=== PATIENT | male | born 1980 | race African-American/Black ===

== ENCOUNTER 2017-04-11 11:26 | Inpatient (IN) | payer OTHER ==
[2017-04-11 11:38] VITALS: BMI 39.9
--- NOTE | 2017-04-11 12:16 | PDOC ---
History of Present Illness - General Chief Complaint: Edema Stated Complaint: SWOLLEN ANKLES Time Seen by Provider: 04/11/17 11:57 History Source: Patient Exam Limitations: No Limitations - History of Present Illness Initial Comments: CHIEF COMPLAINT: 36 y/o afebrile male with no significant PMH c/o dizziness, SOB and swollen legs. HISTORY OF PRESENT ILLNESS: The patient states he has had swollen legs for the past 3 days with dizziness and SOB on exertion at work today. 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 He does admit he doesn't drink water. When asked about his blood pressure the patient states he was at [facility] ER last year and they told him it was high then too but he doesn't have insurance and doesn't have a doctor to follow up with. He denies f/c, neck pain, CLIFFORD, changes in vision/ hearing, n/v/d, CP, abd pain, back pain, hematuria, dysuria. The patient admits his dizziness has resolved. Vital signs on arrival are notable for pulse of 101 with BP of 203/119. REVIEW OF SYSTEMS: GENERAL/CONSTITUTIONAL: No fever/chills. No weakness. No weight change. HEAD, EYES, EARS, NOSE AND THROAT: No change in vision. No ear pain or discharge. No sore throat. CARDIOVASCULAR: +SOB on exertion. No chest pain. RESPIRATORY: No cough, wheezing, or hemoptysis. GASTROINTESTINAL: No abd pain, nausea, vomiting, diarrhea. GENITOURINARY: No dysuria, frequency, or change in urination. MUSCULOSKELETAL: +lower leg swelling. No neck or back pain. SKIN: No rash or easy bruising. NEUROLOGIC: +dizziness. No headache, loss of consciousness, or loss of sensation. PHYSICAL EXAM: GENERAL: The patient is awake, alert, and fully oriented, in no acute distress. He is a morbidly obese male, in NAD or obvious discomfort. HEAD: Normal with no signs of trauma. NECK: No midline cervical spine TTP or step offs. No meningismus. ENT: Pupils equal, round and reactive to light, extraocular movements intact, sclera anicteric, conjunctiva clear. Neck supple. LUNGS: Clear to auscultation bilaterally. Normal excursion. No respiratory distress or use of accessory muscles. CV: RRR, S1/S2, no MRG. Cap refill < 2 sec. ABDOMEN: Soft, obese, non-tender even to deep palpation, no hepatomegaly or splenomegaly, no masses. EXTREMITIES: 2+ pitting edema b/l LEs. Normal range of motion. NEUROLOGICAL: Normal speech, normal gait. CN II-XII grossly intact. PSYCH: Normal mood, normal affect. SKIN: Warm, dry, normal turgor, no rashes or lesions noted. Past History - Past Medical History Allergies/Adverse Reactions: Allergies Allergy/AdvReac Type Severity Reaction Status Date / Time No Known Allergies Allergy Verified 04/11/17 11:38 Home Medications: Ambulatory Orders NK [No Known Home Medication] 04/11/17 Other medical history: NONE - Psycho/Social/Smoking Cessation Hx Anxiety: No Suicidal Ideation: No Smoking History: Never smoked Hx Alcohol Use: Yes (SOCIAL) Drug/Substance Use Hx: No Substance Use Type: None *Physical Exam - Vital Signs Last Vital Signs Temp Pulse Resp BP Pulse Ox 98.1 F 101 H 20 203/119 98 04/11/17 11:32 04/11/17 11:32 04/11/17 11:32 04/11/17 11:32 04/11/17 11:51 Heart Score/ECG Review - ECG Intrepretation Comment:: Twelve-lead EKG was performed and reviewed by Dr. Alston. There is normal sinus rhythm with a normal rate. Biatrial enlargement. Pulmonary disease pattern. Incomplete right bundle branch block. Left anterior fascicular block. Nonspecific T wave abnormality. Prolonged QT. Impression: Abnormal twelve-lead EKG ED Treatment Course - LABORATORY CBC & Chemistry Diagram: 04/11/17 12:34 04/11/17 12:33 Medical Decision Making - Medical Decision Making A/P: 36 y/o afebrile male with no PMH but with no prison medical care c/o dizziness, SOB on exertion and LE edema. Upon arrival the patient was HTN to 203/119 with HR of 101 and O2 sat of 96% on RA. The patient has no complaints of CLIFFORD, neck pain, changes in vision/hearing. Plan is to do a cardiac work up to r/o ACS and CHF. 1. EKG 2. CXR 3. Labs CXR IMPRESSION: No acute pathology. Prominent right hilum. Large heart. Troponin - 2.[address] elevation. Possible NSTEMI Pressures remain elevated, tachycardic and hypoxic. Will send for Chest CTA to r/o PE. Pt continues to deny pain. Chest CTA IMPRESSION: The thoracic and visualized portion of the upper abdominal aorta is normally enhanced without evidence of aneurysmal dilation or dissection. There is no evidence of a pulmonary embolus in the main pulmonary artery and its proximal branches, bilaterally. Minimal atelectatic changes in the dependent portion of the left lower lobe without evidence of focal infiltrates. Discussed all results with Dr. Alston. This is most likely an NSTEMI. Paged Cardio. Repeat EKG at 2:05pm remains unchanged from prior. Spoke with Dr. Naik. He agrees with Heparin and ASA protocol. Also suggested IV hydralazine. Pt given meds. His pressure is now down to 189/95. Spoke with Dr. See and he accepts admission on behalf of Dr. Bello. Pt and family are aware of the diagnosis and the plan. *DC/Admit/Observation/Transfer Diagnosis at time of Disposition: Elevated troponin I level, NSTEMI (non-ST elevated myocardial infarction) Hypertension Qualifiers: Hypertension type: unspecified Qualified Code(s): I10 - Essential (primary) hypertension - Discharge Dispostion Admit: Yes
[2017-04-11 12:41] LABS: BASOPHIL 1.4 % (0-2.0); EOSINOPHIL 1.6 % (0-4.5); MCH 30.2 pg (25.7-33.7); MCHC 33.8 g/dl (32.0-35.9); MEAN CELL VOLUME 89.5 fl (80-96); MEAN PLT VOLUME 8.6 fl (7.5-11.1); NEUTROPHILS 61.5 % (42.8-82.8); PLATELET COUNT 237 K/MM3 (134-434); RDW 13.3 % (11.9-15.9); WHITE BLOOD COUNT 7.5 K/mm3 (4.0-10.0)
[2017-04-11 13:17] LABS: ALBUMIN 3.6 g/dl (3.4-5.0); ANION GAP 6 (8-16); BILIRUBIN,TOTAL 1.4 mg/dL (0.2-1.0); CALCIUM 8.5 mg/dL (8.5-10.1); CO2 32 mmol/L (21-32); CREATININE 0.9 mg/dL (0.7-1.3); GLUCOSE,RANDOM 72 mg/dL (74-106); SGPT/ALT 44 U/L (12-78); TOT PROT 6.7 g/dl (6.4-8.2)
[2017-04-11 13:25] LABS: ALK PHOS 69 U/L (45-117); SGOT/AST 49 U/L (15-37)
[2017-04-11] MEDS ORDERED: ASPIRIN 81 MG CHEWABLE TABLETS PO ONE (13:54)
[2017-04-11] MEDS ORDERED: HEPARIN NA (PORCINE) 5,000 UNITS/ML 1ML VIAL IVPUSH PRN (14:07)
[2017-04-11] MEDS ORDERED: ASPIRIN 325 MG TABLET ONE (14:20)
[2017-04-11] MEDS ORDERED: hydrALAZINE HCL 20 MG/ML VIAL IVPUSH ONE (14:37)
[2017-04-11] MEDS ORDERED: HEPARIN NA (PORCINE) 5,000 UNITS/ML 1ML VIAL ONE (14:40)
[2017-04-11] MEDS ORDERED: HEPARIN INFUSION - 500 ML IVPB ONE (14:40)
[2017-04-11] MEDS ORDERED: hydrALAZINE HCL 20 MG/ML VIAL ONE (14:41)
[2017-04-11] MEDS: HEPARIN INFUSION - 500 ML IVPB SCH (14:51)
--- NOTE | 2017-04-11 16:49 | HP ---
CHIEF COMPLAINT:Dizziness shortness of breath and leg swelling PCP:none HISTORY OF PRESENT ILLNESS: 36M denies PMH presents to the ED with a few hour history of dizziness and shortness of breath. 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 This prompted him to come to the ED. patient presents with his aunt and other family members. He also endorses a 3 day history of lower extremity swelling. He denies nausea vomiting fevers chills chest pain dysuria or hematuria. He denies drug use. He endorses decreased fluid intake. He denies any neurological symptoms. He denies recent illness or recent sick contacts. States he had some chest tightness a few months ago but was never worked up. In the ED he was noted to have hypertensive urgency with SBP around 200. Troponin also elevated to 2.[address] changes on EKG. Seen in [facility] last year for a head laceration and admitted for hypertension. He was told he had hypertension but did not follow up and was never treated due to insurance reasons. ER course was notable for: (1)Labs CT chest (2)Heparin gtt (3)Cardiology consult IV hydralazine Recent Travel:Denies PAST MEDICAL HISTORY:Denies PAST SURGICAL HISTORY:Denies Social History: Smoking:Denies Alcohol:Social Drugs: Denies Allergies No Known Allergies Allergy (Verified 04/11/17 11:38) HOME MEDICATIONS: Home Medications Medication Instructions Recorded NK [No Known Home Medication] 04/11/17 REVIEW OF SYSTEMS CONSTITUTIONAL: Absent: fever, chills, diaphoresis, generalized weakness, malaise, loss of appetite, weight change HEENT: Absent: rhinorrhea, nasal congestion, throat pain, throat swelling, difficulty swallowing, mouth swelling, ear pain, eye pain, visual changes CARDIOVASCULAR: Absent: chest pain, syncope, palpitations, irregular heart rate, lightheadedness Present: peripheral edema RESPIRATORY: Absent: cough, dyspnea with exertion, orthopnea, wheezing, stridor, hemoptysis Present: shortness of breath GASTROINTESTINAL: Absent: abdominal pain, abdominal distension, nausea, vomiting, diarrhea, constipation, melena, hematochezia GENITOURINARY: Absent: dysuria, frequency, urgency, hesitancy, hematuria, flank pain, genital pain MUSCULOSKELETAL: Absent: myalgia, arthralgia, joint swelling, back pain, neck pain SKIN: Absent: itching, pallor Present: Fungal rash around toes HEMATOLOGIC/IMMUNOLOGIC: Absent: easy bleeding, easy bruising, lymphadenopathy, frequent infections ENDOCRINE: Absent: unexplained weight gain, unexplained weight loss, heat intolerance, cold intolerance NEUROLOGIC: Absent: headache, focal weakness or paresthesias, unsteady gait, seizure, mental status changes, bladder or bowel incontinence Present: dizziness PSYCHIATRIC: Absent: anxiety, depression, suicidal or homicidal ideation, hallucinations. PHYSICAL EXAMINATION Vital Signs - 24 hr 04/11/17 04/11/17 04/11/17 11:32 11:51 12:09 Temperature 98.1 F Pulse Rate 101 H Pulse Rate [ 81 Apical] Respiratory 20 19 Rate Blood Pressure 203/119 Blood Pressure [Left Arm] Blood Pressure 204/135 [Right Arm] O2 Sat by Pulse 96 98 95 Oximetry (%) 04/11/17 04/11/17 04/11/17 12:36 14:09 14:17 Temperature 98.6 F Pulse Rate Pulse Rate [ 81 74 Apical] Respiratory 18 22 Rate Blood Pressure Blood Pressure 219/156 [Left Arm] Blood Pressure 180/134 201/116 [Right Arm] O2 Sat by Pulse 95 100 Oximetry (%) 04/11/17 15:41 Temperature Pulse Rate Pulse Rate [ 85 Apical] Respiratory 22 Rate Blood Pressure Blood Pressure 157/88 [Left Arm] Blood Pressure [Right Arm] O2 Sat by Pulse 100 Oximetry (%) GENERAL: Awake, alert, and fully oriented, in no acute distress. HEAD: Normal with no signs of trauma. EYES: Pupils equal, round and reactive to light, extraocular movements intact, sclera anicteric, conjunctiva clear. EARS, NOSE, THROAT: Dry mucous membranes. NECK: Normal range of motion, +JVD LUNGS: Breath sounds equal, clear to auscultation bilaterally. No wheezes, and no crackles. No accessory muscle use. HEART: Regular rate and rhythm, normal S1 and S2 without murmur, rub or gallop. ABDOMEN: Soft, nontender, not distended, normoactive bowel sounds, Obese, no guarding, no rebound MUSCULOSKELETAL: Normal range of motion at all joints. No bony deformities or tenderness. No CVA tenderness. UPPER EXTREMITIES: 2+ pulses, warm, well-perfused.. No peripheral edema. LOWER EXTREMITIES: 2+ DP pulses, warm, well-perfused. No calf tenderness. 3+ Pitting edema in BL LE up to knee. Dry scaly crusted skin over toes and evidence of fungal infection in webbed spaces. NEUROLOGICAL: Cranial nerves II-XII intact. Normal speech. PSYCHIATRIC: Cooperative. Good eye contact. Appropriate mood and affect. Laboratory Results - last 24 hr 04/11/17 04/11/17 04/11/17 12:33 12:33 12:34 WBC 7.5 RBC 5.25 Hgb 15.9 Hct 47.0 MCV 89.5 MCH 30.2 MCHC 33.8 RDW 13.3 Plt Count 237 MPV 8.6 Neutrophils % 61.5 Lymphocytes % 24.7 Monocytes % 10.8 H Eosinophils % 1.6 Basophils % 1.4 Sodium 141 Potassium 4.3 Chloride 103 Carbon Dioxide 32 Anion Gap 6 L BUN 15 Creatinine 0.9 Creat Clearance w eGFR > 60 Random Glucose 72 L Calcium 8.5 Total Bilirubin 1.4 H AST 49 H ALT 44 Alkaline Phosphatase 69 Creatine Kinase 646 H Creatine Kinase Index 0.7 CK-MB (CK-2) 4.258 H CK-MB (CK-2) Rel Index Cancelled Troponin I 2.80 H* B-Natriuretic Peptide 185.74 H Total Protein 6.7 Albumin 3.6 ASSESSMENT/PLAN: 36M with history og long standing uncontrolled hypertension and obesity who presents to the ED with dizziness shortness of breath and lower extremity edema found to have elevated troponins. Troponinemia: likely NSTEMI: Admit to telemetry Vital signs q2h for now Trend troponin Cardiology consult Load with plavix 300mg po one start aspire 81mg po daily already given aspirin 324 in ED Start heparin gtt Check HbA1c Lipid panel lipitor 40mg po now and HS Start JASMYN inhibitor-lisinopril 40mg po now and daily Echo Repeat EKG and troponin now uncontrolled hypertension/hypertensive urgency: Start jasmyn inhibitor 40mg po daily will add beta isacc as needed trend BP q2h for now until controlled telemetry for cardiac monitoring CHF: Clinically the patient has CHF with JVD and bilateral lower extremity pitting edema. Get Echo cardiology consult hold off on diuresis for now and evaluate if patient becomes tachypneic or has respiratory distress will give diuretics Tinea Pedis: Start clotrimazole cream Instruced on good hygiene techniques FEN: No IVF No electrolyte issues Cholesterol/Sodium controlled diet PPx: On Hep gtt/SCDs no GI PPx indicated no PT consult needed atthis time case discussed with attending Dr. Gordon Visit type - Emergency Visit Emergency Visit: Yes ED Registration Date: 04/11/17 Care time: The patient presented to the Emergency Department on the above date and was hospitalized for further evaluation of their emergent condition. - New Patient This patient is new to me today: Yes Date on this admission: 04/11/17 - Critical Care Critical Care patient: No
[2017-04-11] MEDS ORDERED: CLOPIDOGREL BISULFATE 300 MG TABLET PO ONE (17:02)
[2017-04-11] MEDS ORDERED: ATORVASTATIN CA 40 MG TABLET (FP) PO ONE (17:02)
--- NOTE | 2017-04-11 17:02 | PN ---
Teaching Attending Note Name of Resident: Jagjit See ATTENDING PHYSICIAN STATEMENT I saw and evaluated the patient. I reviewed the resident's note and discussed the case with the resident. I agree with the resident's findings and plan as documented. SUBJECTIVE: CC: light headedness. 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 he had no CLIFFORD , visual changes, weakness, numbness or tingling. he noted LE edema x 3 days . denies SOB . reported 2 episodes of CP 2 months ago after walking fro few min and resolved with resting after lasting few min . reports his father had a stroke and PR at age 85 . currently sx free. in ER was found to be hypertensive , with SBP > 200. treated with IV meds. given ASA and started on heparin gtt due to trop of 2.8 OBJECTIVE: BP 158/105, HR 80s , NAD CV: RRR, no MRG. has JVD. Lungs : L middle lung field fine crackles . Abd; obese , NT, NL BS Ext : 2+ pitting edema on LE from knees down . no erythema or tenderness,. fungal infection in toes webs . thick dry hyperpigmented , and scaly skin on toes. NEuro: EOMI, round equal pupils, reactive tolight , tongue and uvula at mid line , nl facial sensation , no facial droop. strength 5/5 in upper and lower ext proximally and distally. sensation to light touch nL. reflexes 2+ knee jerk b/l 1+ biceps b/l. Neg babibnski's b/l . 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 He was found to have hypertensive emergency 1- Hypertensive emergency: with elevated tropo causing NSTEMI. EKG with L axis deviation , no evidence of ST or TW changes . he gives h/o stable angina 2 months ago, so probably he has underlying CAD , especially withhis risk factors of untreated HTN, male gender , adn obesity. - started on heparin gtt in ER . COnt - given 325 of asa , will cont 81 mg daily - load with plavix 300 mg - check stat trop and EKG - give a dose of LIsinopril now and then daily - we can use BB if needed as well to decrease HR and BB . - give statin -echo - check LDL - check A1C 2- signs of heart failure : he has no resp compromise or distress. will hold off diuresis now , unless condition changes. 3- mild elevationin LFTS , probably due to liver congestion from R sided heart failure 4- tinea pedis : start antifungal topically 5-- DVT px : on heparin gtt HLOC
[2017-04-11] MEDS ORDERED: ATORVASTATIN CA 40 MG TABLET (FP) ONE (17:13)
[2017-04-11] MEDS ORDERED: CLOPIDOGREL BISULFATE 300 MG TABLET ONE (17:13)
[2017-04-11] MEDS ORDERED: LISINOPRIL 20 MG TABLET (FP) ONE (17:33)
[2017-04-11] MEDS: LISINOPRIL 20 MG TABLET (FP) PO SCH (17:36)
[2017-04-11 18:10] LABS: URINE MARIJUANA THC NEGATIVE ng/ml (CUTOFF=50)
[2017-04-11 19:26] LABS: TROPONIN I 2.87 ng/ml (0.00-0.05)
[2017-04-11] MEDS ORDERED: FUROSEMIDE 40 MG/4 ML INJECTABLE VIAL IVPUSH ONE (21:21)
[2017-04-11] MEDS: CLOTRIMAZOLE 1% CREAM 15 GM TUBE TP SCH (21:28)
[2017-04-12 07:05] LABS: MCH 30.3 pg (25.7-33.7); MCHC 33.8 g/dl (32.0-35.9); MEAN CELL VOLUME 89.8 fl (80-96); MEAN PLT VOLUME 8.6 fl (7.5-11.1); PLATELET COUNT 234 K/MM3 (134-434); RDW 13.3 % (11.9-15.9); WHITE BLOOD COUNT 6.7 K/mm3 (4.0-10.0)
[2017-04-12 07:28] LABS: ANION GAP 6 (8-16); CALCIUM 8.6 mg/dL (8.5-10.1); CHOLESTEROL 187 mg/dL (50-200); CO2 34 mmol/L (21-32); CREATININE 0.9 mg/dL (0.7-1.3); GLUCOSE,RANDOM 85 mg/dL (74-106); LDL CHOLESTEROL (ONLY SJRH) 111 mg/dL (5-100); MAGNESIUM 2.3 mg/dL (1.8-2.4); PHOSPHOROUS 3.8 mg/dL (2.5-4.9)
[2017-04-12 08:25] LABS: ALBUMIN 3.8 g/dl (3.4-5.0); BILIRUBIN,DIRECT 0.4 mg/dL (0.0-0.2); SGOT/AST 32 U/L (15-37); SGPT/ALT 41 U/L (12-78); TOT PROT 6.7 g/dl (6.4-8.2)
--- NOTE | 2017-04-12 08:25 | CONSULT ---
Consult - text type - Consultation Consultation Note: Cardiology 36 yr male dyspnea, dizziness, leg edema social NA allergy NA FH CAD op NA PMH HTN 1 yr, no meds PE: normal cardio-pulmonary exam abdomen soft leg edema Impression: NSTEMI, most likley due to HTN urgency no CHF BP better Rec: optimize BP better Echocardiogram garcía GALET
[2017-04-12 08:39] LABS: ALK PHOS 66 U/L (45-117)
[2017-04-12] MEDS: ASPIRIN COATED 81 MG TABLET.EC PO SCH (09:48)
[2017-04-12] MEDS: LISINOPRIL 20 MG TABLET (FP) PO SCH (09:48)
[2017-04-12] MEDS: HEPARIN NA (PORCINE) 5,000 UNITS/ML 1ML VIAL IVPUSH PRN (09:54)
[2017-04-12] MEDS: HEPARIN INFUSION - 500 ML IVPB SCH ×2 (09:55→14:14)
[2017-04-12] MEDS ORDERED: amLODIPine BESYLATE 5 MG TABLET (FP) PO SCH (10:00)
[2017-04-12] MEDS ORDERED: METOPROLOL TARTRATE 25 MG TABLET (FP) PO SCH ×2 (10:00)
[2017-04-12] MEDS: CLOTRIMAZOLE 1% CREAM 15 GM TUBE TP SCH ×2 (10:11→22:08)
--- NOTE | 2017-04-12 10:28 | PN ---
Progress Note (short form) - Note Progress Note: Subjective: no fever or chills , has n o CP or SOB. has palpitations Objective: Vital Signs: Last Vital Signs Temp Pulse Resp BP Pulse Ox 98.2 F 74 70 H 152/71 97 04/12/17 07:44 04/12/17 07:44 04/12/17 07:47 04/12/17 07:44 04/12/17 07:47 Laboratory Results - last 24 hr 04/11/17 04/11/17 04/11/17 12:33 12:33 12:34 WBC 7.5 RBC 5.25 Hgb 15.9 Hct 47.0 MCV 89.5 MCH 30.2 MCHC 33.8 RDW 13.3 Plt Count 237 MPV 8.6 Neutrophils % 61.5 Lymphocytes % 24.7 Monocytes % 10.8 H Eosinophils % 1.6 Basophils % 1.4 PTT (Actin FS) Sodium 141 Potassium 4.3 Chloride 103 Carbon Dioxide 32 Anion Gap 6 L BUN 15 Creatinine 0.9 Creat Clearance w eGFR > 60 Random Glucose 72 L Hemoglobin A1c % Calcium 8.5 Phosphorus Magnesium Total Bilirubin 1.4 H Direct Bilirubin AST 49 H ALT 44 Alkaline Phosphatase 69 Creatine Kinase 646 H Creatine Kinase Index 0.7 CK-MB (CK-2) 4.258 H CK-MB (CK-2) Rel Index Cancelled Troponin I 2.80 H* B-Natriuretic Peptide 185.74 H Total Protein 6.7 Albumin 3.6 Triglycerides Cholesterol Total LDL Cholesterol HDL Cholesterol Opiates Screen Methadone Screen Barbiturate Screen Phencyclidine Screen Ur Amphetamines Screen MDMA (Ecstasy) Screen Benzodiazepines Screen Cocaine Screen U Marijuana (THC) Screen 04/11/17 04/11/17 04/11/17 16:51 17:04 18:15 WBC RBC Hgb Hct MCV MCH MCHC RDW Plt Count MPV Neutrophils % Lymphocytes % Monocytes % Eosinophils % Basophils % PTT (Actin FS) Sodium Potassium Chloride Carbon Dioxide Anion Gap BUN Creatinine Creat Clearance w eGFR Random Glucose Hemoglobin A1c % 5.6 Calcium Phosphorus Magnesium Total Bilirubin Direct Bilirubin AST ALT Alkaline Phosphatase Creatine Kinase 498 H D Creatine Kinase Index 0.8 CK-MB (CK-2) 3.797 H CK-MB (CK-2) Rel Index Troponin I 2.87 H* B-Natriuretic Peptide Total Protein Albumin Triglycerides Cholesterol Total LDL Cholesterol HDL Cholesterol Opiates Screen Negative Methadone Screen Negative Barbiturate Screen Negative Phencyclidine Screen Negative Ur Amphetamines Screen Negative MDMA (Ecstasy) Screen Negative Benzodiazepines Screen Negative Cocaine Screen Negative U Marijuana (THC) Screen Negative 04/11/17 04/11/17 04/11/17 18:15 18:15 23:20 WBC RBC Hgb Hct MCV MCH MCHC RDW Plt Count MPV Neutrophils % Lymphocytes % Monocytes % Eosinophils % Basophils % PTT (Actin FS) 79.0 H Sodium Potassium Chloride Carbon Dioxide Anion Gap BUN Creatinine Creat Clearance w eGFR Random Glucose Hemoglobin A1c % Calcium Phosphorus Magnesium Total Bilirubin Direct Bilirubin AST ALT Alkaline Phosphatase Creatine Kinase 527 H Creatine Kinase Index 0.7 CK-MB (CK-2) 3.827 H CK-MB (CK-2) Rel Index Cancelled Troponin I 3.00 H* B-Natriuretic Peptide Total Protein Albumin Triglycerides Cholesterol Total LDL Cholesterol HDL Cholesterol Opiates Screen Methadone Screen Barbiturate Screen Phencyclidine Screen Ur Amphetamines Screen MDMA (Ecstasy) Screen Benzodiazepines Screen Cocaine Screen U Marijuana (THC) Screen 04/11/17 04/12/17 04/12/17 23:20 05:35 05:35 WBC 6.7 RBC 5.32 Hgb 16.2 Hct 47.8 MCV 89.8 MCH 30.3 MCHC 33.8 RDW 13.3 Plt Count 234 MPV 8.6 Neutrophils % Lymphocytes % Monocytes % Eosinophils % Basophils % PTT (Actin FS) Sodium 141 Potassium 3.6 Chloride 101 Carbon Dioxide 34 H Anion Gap 6 L BUN 14 Creatinine 0.9 Creat Clearance w eGFR Random Glucose 85 Hemoglobin A1c % Calcium 8.6 Phosphorus 3.8 Magnesium 2.3 Total Bilirubin 2.0 H D Direct Bilirubin 0.4 H AST 32 D ALT 41 Alkaline Phosphatase 66 Creatine Kinase Creatine Kinase Index CK-MB (CK-2) CK-MB (CK-2) Rel Index Cancelled Troponin I 2.80 H* B-Natriuretic Peptide Total Protein 6.7 Albumin 3.8 Triglycerides 84 Cholesterol 187 Total LDL Cholesterol 111 H HDL Cholesterol 69 H Opiates Screen Methadone Screen Barbiturate Screen Phencyclidine Screen Ur Amphetamines Screen MDMA (Ecstasy) Screen Benzodiazepines Screen Cocaine Screen U Marijuana (THC) Screen 04/12/17 04/12/17 04/12/17 05:35 05:35 05:35 WBC RBC Hgb Hct MCV MCH MCHC RDW Plt Count MPV Neutrophils % Lymphocytes % Monocytes % Eosinophils % Basophils % PTT (Actin FS) 42.3 H D Sodium Potassium Chloride Carbon Dioxide Anion Gap BUN Creatinine Creat Clearance w eGFR Random Glucose Hemoglobin A1c % Calcium Phosphorus Magnesium Total Bilirubin Cancelled Direct Bilirubin Cancelled AST Cancelled ALT Cancelled Alkaline Phosphatase Cancelled Creatine Kinase Creatine Kinase Index CK-MB (CK-2) CK-MB (CK-2) Rel Index Troponin I Cancelled B-Natriuretic Peptide Total Protein Cancelled Albumin Cancelled Triglycerides Cholesterol Total LDL Cholesterol HDL Cholesterol Opiates Screen Methadone Screen Barbiturate Screen Phencyclidine Screen Ur Amphetamines Screen MDMA (Ecstasy) Screen Benzodiazepines Screen Cocaine Screen U Marijuana (THC) Screen Physical Exam: NAD CV: RRR, no MRG. has JVD. Lungs :CTAB Abd; obese , NT, NL BS Ext : 2+ pitting edema on LE from knees down . no erythema or tenderness,. fungal infection in toes webs . thick dry hyperpigmented , and scaly skin on toes. 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 He was found to have hypertensive emergency 1- Hypertensive emergency: BP improved , need more control - cont BB, norvasc and lisinopril 2-NSTEMI: trop peaked at 3.2 . no cp now, and has signs of R sided heart failure - BB to control BB and decrease HR - cont ASA - cont heparin gtt - cont statin ( LDL above goal ) - A1c 5.6 - BP control - Stress tomorrow - echo pending 3-tinea pedis : start antifungal topically 5-Alcohol dependence: monitor for signs of withdrawal DVT px : on heparin gtt Visit type - Emergency Visit Emergency Visit: Yes ED Registration Date: 04/11/17 Care time: The patient presented to the Emergency Department on the above date and was hospitalized for further evaluation of their emergent condition. - New Patient This patient is new to me today: No - Critical Care Critical Care patient: No
--- NOTE | 2017-04-12 10:44 | HOSP ---
Subjective - Review of Symptoms Events since last encounter: on tele , pt has bradycaria episodes to 30s , not symptomatic . BP stable. reviewing the strips , some are Mobitz I and others might be Mobitz II with long pauses of 3.[address] Naik , will dc BB . Physical Examination Vital Signs: Vital Signs Temperature 98.2 F 04/12/17 07:44 Pulse Rate 74 04/12/17 07:44 Respiratory Rate 70 H 04/12/17 07:47 Blood Pressure 152/71 04/12/17 07:44 O2 Sat by Pulse Oximetry (%) 97 04/12/17 07:47 Labs: CBC, BMP 04/12/17 05:35 04/12/17 05:35
--- NOTE | 2017-04-12 13:32 | EKG ---
Test Reason : Blood Pressure : / mmHG Vent. Rate : 078 BPM Atrial Rate : 078 BPM P-R Int : 170 ms QRS Dur : 104 ms QT Int : 422 ms P-R-T Axes : 053 -75 066 degrees QTc Int : 481 ms NORMAL SINUS RHYTHM POSSIBLE LEFT ATRIAL ENLARGEMENT LEFT ANTERIOR FASCICULAR BLOCK PROLONGED QT ABNORMAL ECG WHEN COMPARED WITH ECG OF 11-APR-2017 14:05, INCOMPLETE RIGHT BUNDLE BRANCH BLOCK IS NO LONGER PRESENT Confirmed by JEANNE BAJWA MD ([id number]) on 04/12/2017 1:32:29 PM Referred By: Confirmed By:JEANNE BAJWA MD
--- NOTE | 2017-04-12 13:58 | EKG ---
Test Reason : Blood Pressure : / mmHG Vent. Rate : 074 BPM Atrial Rate : 074 BPM P-R Int : 162 ms QRS Dur : 098 ms QT Int : 412 ms P-R-T Axes : 032 -51 072 degrees QTc Int : 457 ms NORMAL SINUS RHYTHM POSSIBLE LEFT ATRIAL ENLARGEMENT INCOMPLETE RIGHT BUNDLE BRANCH BLOCK LEFT ANTERIOR FASCICULAR BLOCK ABNORMAL ECG WHEN COMPARED WITH ECG OF 11-APR-2017 12:04, NO SIGNIFICANT CHANGE WAS FOUND Confirmed by JEANNE BAJWA MD ([id number]) on 04/12/2017 1:58:19 PM Referred By: Confirmed By:JEANNE BAJWA MD
[2017-04-12] MEDS: ATORVASTATIN CA 40 MG TABLET (FP) PO SCH (22:07)
[2017-04-13 07:09] LABS: MCH 30.5 pg (25.7-33.7); MCHC 33.8 g/dl (32.0-35.9); MEAN CELL VOLUME 90.2 fl (80-96); MEAN PLT VOLUME 8.7 fl (7.5-11.1); PLATELET COUNT 232 K/MM3 (134-434); RDW 13.4 % (11.9-15.9); WHITE BLOOD COUNT 6.6 K/mm3 (4.0-10.0)
[2017-04-13 07:44] LABS: ALBUMIN 3.7 g/dl (3.4-5.0); BILIRUBIN,DIRECT 0.3 mg/dL (0.0-0.2)
[2017-04-13 07:59] LABS: BILIRUBIN,TOTAL 1.9 mg/dL (0.2-1.0); TOT PROT 6.6 g/dl (6.4-8.2)
[2017-04-13 08:06] LABS: TROPONIN I 2.51 ng/ml (0.00-0.05)
--- NOTE | 2017-04-13 09:00 | PN ---
Teaching Attending Note Name of Resident: Enrike Walsh ATTENDING PHYSICIAN STATEMENT I saw and evaluated the patient. I reviewed the resident's note and discussed the case with the resident. I agree with the resident's findings and plan as documented. SUBJECTIVE: Complaining or b/l lower extremity swelling, denies any chest pain or sob. Complaining of headache without any visual changes. OBJECTIVE: Vital Signs Temperature 97.3 F L 04/13/17 07:21 Pulse Rate 47 L 04/13/17 07:21 Respiratory Rate 20 04/13/17 07:23 Blood Pressure 158/89 04/13/17 07:21 O2 Sat by Pulse Oximetry (%) 95 04/13/17 07:23 Gen: A&Ox3, in NAD HEENT: PERRLA, EOMI, b/l proptosis MMM CVS: RRR, S1, S2, no M/G/R Lungs: CTA, no wheezing Abd: Soft, NT, ND, BS+ Ext b/l swelling, pulses + Neuro no focal deficits Skin: akanthosis nigrans ASSESSMENT AND PLAN: HTN emergency with NSTEMI- Troponins trending down - Nuclear Stress test postponed for today due to ekg with VT 3sec runs - ECHO today - continue aspirin and statin. Bradycardia secondary to Beta blockers vs Mobitz type 1- D/C beta blockers. Continue telemetry monitoring. Cardiology consult appreciated. Proptosis- r/o thyroid d/o- TSH
[2017-04-13] MEDS: ASPIRIN COATED 81 MG TABLET.EC PO SCH (09:45)
[2017-04-13] MEDS: LISINOPRIL 20 MG TABLET (FP) PO SCH (09:45)
[2017-04-13] MEDS: CLOTRIMAZOLE 1% CREAM 15 GM TUBE TP SCH ×2 (09:47→20:59)
[2017-04-13] MEDS ORDERED: amLODIPine BESYLATE 10 MG TABLET (FP) PO SCH (10:00)
[2017-04-13] MEDS: ACETAMINOPHEN 325 MG TABLET (FP) PO PRN (11:45)
[2017-04-13] MEDS ORDERED: FUROSEMIDE 40 MG TABLET (FP) PO ONE (12:00)
[2017-04-13] MEDS: HEPARIN INFUSION - 500 ML IVPB SCH (13:53)
--- NOTE | 2017-04-13 16:12 | PN ---
Physical Exam: SUBJECTIVE: Patient seen and examined at bedside. Pt has no complaints at this time. Pt denies headache, vision changes, cp, sob, abd pain, nausea, vomiting, diarrhea, dysuria, fever. OBJECTIVE: Vital Signs Period Temp Pulse Resp BP Sys/Velasquez Pulse Ox Last 24 Hr 97.3 F-98.7 F 47-87 18-20 147-180/72-114 95-95 GENERAL: The patient is awake, alert, and fully oriented, in no acute distress. HEAD: Normal with no signs of trauma. EYES: PERRL, extraocular movements intact, sclera anicteric, conjunctiva clear. No ptosis. Exophthalmos ENT: oropharynx clear without exudates, moist mucous membranes. NECK: Trachea midline, full range of motion, supple. LUNGS: Breath sounds equal, clear to auscultation bilaterally, no wheezes, no crackles, no accessory muscle use. HEART: Regular rate and rhythm, normal S1, S2 without murmur, rub or gallop. ABDOMEN: obese. Soft, nontender, nondistended, normoactive bowel sounds, no guarding, no rebound, no hepatosplenomegaly, no masses. EXTREMITIES: 2+ pulses, warm, well-perfused, 1+ edema. NEUROLOGICAL: Cranial nerves II through XII grossly intact. Normal speech, gait not observed. PSYCH: Normal mood, normal affect. SKIN: Warm, dry, normal turgor, no rashes or lesions noted Laboratory Results - last 24 hr 04/12/17 04/13/17 04/13/17 15:55 05:35 05:35 WBC 6.6 RBC 5.23 Hgb 15.9 Hct 47.2 MCV 90.2 MCH 30.5 MCHC 33.8 RDW 13.4 Plt Count 232 MPV 8.7 PTT (Actin FS) 49.7 H 51.7 H Total Bilirubin Direct Bilirubin AST ALT Alkaline Phosphatase Creatine Kinase Creatine Kinase Index CK-MB (CK-2) CK-MB (CK-2) Rel Index Troponin I Total Protein Albumin 04/13/17 04/13/17 05:35 05:35 WBC RBC Hgb Hct MCV MCH MCHC RDW Plt Count MPV PTT (Actin FS) Total Bilirubin 1.9 H Direct Bilirubin 0.3 H D AST 25 D ALT 37 Alkaline Phosphatase 63 Creatine Kinase 289 D Creatine Kinase Index 0.9 CK-MB (CK-2) 2.672 CK-MB (CK-2) Rel Index Cancelled Troponin I 2.51 H* Total Protein 6.6 Albumin 3.7 Active Medications Generic Name Dose Route Start Last Admin Trade Name Napoleonq PRN Reason Stop Dose Admin Acetaminophen 650 mg 04/12/17 08:49 04/13/17 11:45 Tylenol - PO 650 mg Q6H PRN Administration FEVER OR PAIN Amlodipine Besylate 5 mg 04/14/17 10:00 Norvasc - PO BID KENDY Aspirin 81 mg 04/12/17 10:00 04/13/17 09:45 Ecotrin - PO 81 mg DAILY KENDY Administration Atorvastatin Calcium 40 mg 04/12/17 22:00 04/12/17 22:07 Lipitor - PO 40 mg HS KENDY Administration Clotrimazole 1 applic 04/11/17 22:00 04/13/17 09:47 Lotrimin 1% Cream - TP 1 applic BID KENDY Administration Furosemide 40 mg 04/14/17 10:00 Lasix - PO DAILY KENDY Heparin Sodium (Porcine) 1,000 unit 04/11/17 14:07 04/12/17 09:54 Heparin - IVPUSH 1,000 unit PRN PRN Administration Heparin Heparin Sodium (Porcine) 5,000 unit 04/11/17 14:07 04/11/17 14:52 Heparin - IVPUSH 5,000 unit PRN PRN Administration Heparin Heparin Sodium/Dextrose 500 mls @ 20 mls/hr 04/11/17 14:00 04/13/17 13:53 Heparin Infusion - IVPB 21 mls/hr [facility]ITR [facility] Administration Protocol 1,000 UNITS/HR Lisinopril 40 mg 04/11/17 17:15 04/13/17 09:45 Prinivil PO 40 mg DAILY KENDY Administration ASSESSMENT/PLAN: 36M with history og long standing uncontrolled hypertension and obesity who presents to the ED with dizziness shortness of breath and lower extremity edema found to have elevated troponins #NSTEMI -Troponin peak at 3.0 -Plavix 300mg po one -ASA 81mg po daily -Pt given aspirin 324 in ED -heparin gtt -Cardiology consult appreciated -Lasix 40mg PO daily -Lisinopril 40mg PO daily -Norvasc 5mg PO daily -lipitor 40mg PO HS -Echo- moderate concentric LVH -EKG- normal sinus, left anterior fascicular block, incomplete right bundle, ? left atrial hypertrophy, prolonged QT -Check HbA1c - 5.6% -Lipid panel -Cholesterol 187 -LDL 111 -HDL 69 #uncontrolled hypertension/hypertensive urgency: -Liptor 40mg po daily -add beta isacc as needed -BP in the 140-161/72-114 -telemetry for cardiac monitoring #CHF: Clinically the patient has CHF with JVD and bilateral lower extremity pitting edema. -Echo- as above -cardiology consult - as above #Tinea Pedis -clotrimazole cream -Instruced on good hygiene techniques #exophthalmos -f/u TSH #r/o DM -A1C 5.6% #FEN: -No IVF -No electrolyte issues -Cholesterol/Sodium controlled diet #PPx: -On Hep gtt/SCDs -no GI PPx indicated -no PT consult needed at this time Visit type - Emergency Visit Emergency Visit: Yes ED Registration Date: 04/11/17 Care time: The patient presented to the Emergency Department on the above date and was hospitalized for further evaluation of their emergent condition. - New Patient This patient is new to me today: No - Critical Care Critical Care patient: No
--- NOTE | 2017-04-13 18:30 | CONSULT ---
Consult - text type - Consultation Consultation Note: cardiology no symptoms BP 160/80 normal cardio-pulmonary exam abdomen soft leg edema Impression: NSTEMI, trop 2.5 no CHF severe sleep apnea, obesity, bradycardia pause 3.8 sec; wenkeback; off beta- blockers Rec: Lexiscan NST Left heart cath Hydralazine 25 mg BID
[2017-04-13] MEDS: hydrALAZINE HCL 25 MG TABLET (FP) PO SCH (20:59)
[2017-04-13] MEDS: ATORVASTATIN CA 40 MG TABLET (FP) PO SCH (20:59)
[2017-04-14] MEDS ORDERED: hydrALAZINE HCL 25 MG TABLET (FP) PO ONE ×2 (02:35→11:00)
[2017-04-14] MEDS: ACETAMINOPHEN 325 MG TABLET (FP) PO PRN ×2 (02:55→12:32)
[2017-04-14 08:24] LABS: MCH 30.2 pg (25.7-33.7); MCHC 33.5 g/dl (32.0-35.9); MEAN CELL VOLUME 90.2 fl (80-96); MEAN PLT VOLUME 8.5 fl (7.5-11.1); PLATELET COUNT 244 K/MM3 (134-434); RDW 13.2 % (11.9-15.9); WHITE BLOOD COUNT 6.4 K/mm3 (4.0-10.0)
[2017-04-14] MEDS: HEPARIN INFUSION - 500 ML IVPB SCH ×3 (08:36→22:41)
[2017-04-14 08:37] LABS: ANION GAP 5 (8-16); CALCIUM 8.6 mg/dL (8.5-10.1); CO2 35 mmol/L (21-32); CREATININE 0.9 mg/dL (0.7-1.3); GLUCOSE,RANDOM 82 mg/dL (74-106)
[2017-04-14 08:45] LABS: THYROID STIMULATING HORMONE 0.71 uIU/ml (0.358-3.74)
[2017-04-14 09:04] LABS: TROPONIN I 2.49 ng/ml (0.00-0.05)
[2017-04-14] MEDS: LISINOPRIL 20 MG TABLET (FP) PO SCH (09:34)
[2017-04-14] MEDS: FUROSEMIDE 40 MG TABLET (FP) PO SCH (09:35)
[2017-04-14] MEDS: hydrALAZINE HCL 25 MG TABLET (FP) PO SCH (09:35)
[2017-04-14] MEDS: ASPIRIN COATED 81 MG TABLET.EC PO SCH (09:35)
[2017-04-14] MEDS: CLOTRIMAZOLE 1% CREAM 15 GM TUBE TP SCH ×2 (09:35→22:43)
[2017-04-14] MEDS ORDERED: amLODIPine BESYLATE 5 MG TABLET (FP) PO SCH (10:00)
[2017-04-14] MEDS ORDERED: amLODIPine BESYLATE 5 MG TABLET (FP) PO ONE (11:00)
--- NOTE | 2017-04-14 12:29 | PN ---
Teaching Attending Note Name of Resident: Enrike Walsh ATTENDING PHYSICIAN STATEMENT I saw and evaluated the patient. I reviewed the resident's note and discussed the case with the resident. I agree with the resident's findings and plan as documented. SUBJECTIVE:currently experiencing CLIFFORD. BP checked and foung to be 178/110. states he woke up with CLIFFORD. denies CP, palpitations, anxiety, hair loss, weight loss, N/V/C/D, SOB, blurred vision OBJECTIVE: Last Vital Signs Temp Pulse Resp BP Pulse Ox 98 F 70 20 186/110 95 04/14/17 09:20 04/14/17 09:20 04/14/17 09:20 04/14/17 09:20 04/14/17 09:00 General NAD HEENT +proptosis CV S1 S2 RRR no murmur/rub/gallop Lungs CTA B/L no wheezing/rlaes/rhonchi ASSESSMENT AND PLAN: 36yo M with PMH obesity presented to the ER with CLIFFORD and found to be in HTN emergency 1. HTN emergency- BP remains uncontrolled and symptomatic. will increase hydralazine to 50mg TID, switch norvasc to daily dosing (currently BID?). frequent BP measurement. instructed pt to notify RN immediately if identifies any CLIFFORD or CP for BP check. aggressive BP measurement 2. NSVT- no recurrent episodes. in light of NSVT, unable to place on betablocker due to bradycardia. would not so stress at this time and go straight to cardiac cath 3. NSTEMI- troponin peaked at 3. on heparin ggt. Stress test cancelled due to NSVT. would highly recommend cardiac cath as stress test results will be unequivocal. cardio on board. call placed out to d/w with him 4. Proptosis- no symptoms of hyperthyroidism. TSH WNL. can be repeated 5. ALEXYS- high supsicion of ALEXYS in setting of significant pauses on monitor during sleep. polysomography as outpatient 6. Morbid obesity- BMI 41. diet and lifestyle changes. should consider bariatric workup after cardiac issues optimized 7. DVT ppx-hep ggt
[2017-04-14] MEDS: hydrALAZINE HCL 50 MG TABLET (FP) PO SCH ×2 (12:30→22:42)
[2017-04-14] MEDS ORDERED: hydrALAZINE HCL 50 MG TABLET (FP) PO SCH (14:00)
--- NOTE | 2017-04-14 14:44 | PN ---
Physical Exam: SUBJECTIVE: Patient seen and examined at bedside. Overnight, pt had numerous pauses of up to 3s on telemetry. BP has been spiking as high as 186/111. Pt complains of headache. No other complaints at this time. Pt denies cp, sob, abd pain, nausea, vomiting, diarrhea, dysuria, fever. OBJECTIVE: Vital Signs Period Temp Pulse Resp BP Sys/Velasquez Pulse Ox Last 24 Hr 97.8 F-98.2 F 70-85 16-20 153-189/74-130 95-98 GENERAL: The patient is awake, alert, and fully oriented, in no acute distress. HEAD: Normal with no signs of trauma. EYES: proptosis sclera anicteric, conjunctiva clear. No ptosis. ENT: oropharynx clear without exudates, moist mucous membranes. NECK: Trachea midline, full range of motion, supple. LUNGS: Breath sounds equal, clear to auscultation bilaterally, no wheezes, no crackles, no accessory muscle use. HEART: Regular rate and rhythm, S1, S2 without murmur, rub or gallop. ABDOMEN: obese Soft, nontender, nondistended, normoactive bowel sounds, no guarding, no rebound, no hepatosplenomegaly, no masses. EXTREMITIES: 2+ pulses, warm, well-perfused, no edema. NEUROLOGICAL: Normal speech, normal gait PSYCH: Normal mood, normal affect. SKIN: Warm, dry, normal turgor, no rashes or lesions noted Laboratory Results - last 24 hr 04/14/17 04/14/17 04/14/17 05:55 05:55 05:55 WBC 6.4 RBC 5.40 Hgb 16.3 Hct 48.7 MCV 90.2 MCH 30.2 MCHC 33.5 RDW 13.2 Plt Count 244 MPV 8.5 PTT (Actin FS) 53.4 H Sodium 140 Potassium 3.9 Chloride 100 Carbon Dioxide 35 H Anion Gap 5 L BUN 14 Creatinine 0.9 Random Glucose 82 Calcium 8.6 Creatine Kinase Creatine Kinase Index CK-MB (CK-2) CK-MB (CK-2) Rel Index Troponin I TSH 0.71 Free T4 1.10 04/14/17 04/14/17 05:55 05:55 WBC RBC Hgb Hct MCV MCH MCHC RDW Plt Count MPV PTT (Actin FS) Sodium Potassium Chloride Carbon Dioxide Anion Gap BUN Creatinine Random Glucose Calcium Creatine Kinase 259 Creatine Kinase Index 0.8 CK-MB (CK-2) 2.579 CK-MB (CK-2) Rel Index Cancelled Troponin I 2.49 H* TSH Free T4 Active Medications Generic Name Dose Route Start Last Admin Trade Name Cameron PRN Reason Stop Dose Admin Acetaminophen 650 mg 04/12/17 08:49 04/14/17 12:32 Tylenol - PO 650 mg Q6H PRN Administration FEVER OR PAIN Amlodipine Besylate 10 mg 04/15/17 10:00 Norvasc - PO DAILY KENDY Aspirin 81 mg 04/12/17 10:00 04/14/17 09:35 Ecotrin - PO 81 mg DAILY KENDY Administration Atorvastatin Calcium 40 mg 04/12/17 22:00 04/13/17 20:59 Lipitor - PO 40 mg HS KENDY Administration Clotrimazole 1 applic 04/11/17 22:00 04/14/17 09:35 Lotrimin 1% Cream - TP 1 applic BID KENDY Administration Furosemide 40 mg 04/14/17 10:00 04/14/17 09:35 Lasix - PO 40 mg DAILY KENDY Administration Heparin Sodium (Porcine) 1,000 unit 04/11/17 14:07 04/12/17 09:54 Heparin - IVPUSH 1,000 unit PRN PRN Administration Heparin Heparin Sodium (Porcine) 5,000 unit 04/11/17 14:07 04/11/17 14:52 Heparin - IVPUSH 5,000 unit PRN PRN Administration Heparin Hydralazine HCl 50 mg 04/14/17 13:15 04/14/17 12:30 Apresoline - PO 50 mg TID KENDY Administration Heparin Sodium/Dextrose 500 mls @ 20 mls/hr 04/11/17 14:00 04/14/17 13:48 Heparin Infusion - IVPB 21 mls/hr TITR KENDY Administration Protocol 1,000 UNITS/HR Lisinopril 40 mg 04/11/17 17:15 04/14/17 09:34 Prinivil PO 40 mg DAILY KENDY Administration ASSESSMENT/PLAN: 36M with history of long standing uncontrolled hypertension and obesity who presents to the ED with dizziness shortness of breath and lower extremity edema found to have elevated troponins #NSTEMI -Troponin peak at 3.0, down to 2.5 -ASA 81mg po daily -Pt given aspirin 324 in ED -heparin gtt -Cardiology consult appreciated -Lasix 40mg PO daily -Lisinopril 40mg PO daily -Norvasc 5mg PO daily increased to 10mg PO -lipitor 40mg PO HS -Echo- moderate concentric LVH -EKG- normal sinus, left anterior fascicular block, incomplete right bundle, ? left atrial hypertrophy, prolonged QT -HbA1c - 5.6% -Lipid panel -Cholesterol 187 -LDL 111 -HDL 69 -on Lipitor -Stress test cancelled. Pt needs cath regardless of result. #uncontrolled hypertension/hypertensive urgency: no longer hypertensive urgency -Liptor 40mg po daily -BP poorly controlled but improved. no longer hypertensive urgency -telemetry for cardiac monitoring: patient having pauses overnight -increase Hydralazine to 50mg TID -Norvasc TID -Instruct pt to inform nurse if symptoms recur #CHF: Clinically the patient has CHF with JVD and bilateral lower extremity pitting edema. -Echo- as above -cardiology consult - as above -stress test cancelled as pt needs cath regardless. #Tinea Pedis -clotrimazole cream -Instruced on good hygiene techniques #exophthalmos -TSH 0.71 (within normal range 0.35-3.7), Free T4 1.10 (within normal range 0.76 -1.16), Free T3 pending #r/o DM -A1C 5.6% #FEN: -No IVF -No electrolyte issues -Cholesterol/Sodium controlled diet #PPx: -On Hep gtt/SCDs -no GI PPx indicated -no PT consult needed at this time Visit type - Emergency Visit Emergency Visit: No - New Patient This patient is new to me today: No - Critical Care Critical Care patient: No - Discharge Referral Referred to [facility] Med P.C.: No
[2017-04-14] MEDS ORDERED: PT OWN MED DRAWER 7, Y5N ONE (22:07)
[2017-04-14] MEDS: ATORVASTATIN CA 40 MG TABLET (FP) PO SCH (22:42)
[2017-04-15] MEDS: ACETAMINOPHEN 325 MG TABLET (FP) PO PRN (03:49)
[2017-04-15] MEDS: hydrALAZINE HCL 50 MG TABLET (FP) PO SCH ×3 (06:45→21:29)
[2017-04-15 07:26] LABS: BASOPHIL 0.8 % (0-2.0); EOSINOPHIL 2.2 % (0-4.5); MCH 29.9 pg (25.7-33.7); MEAN CELL VOLUME 90.5 fl (80-96); MEAN PLT VOLUME 8.9 fl (7.5-11.1); NEUTROPHILS 65.7 % (42.8-82.8); PLATELET COUNT 271 K/MM3 (134-434); RDW 13.4 % (11.9-15.9); WHITE BLOOD COUNT 6.6 K/mm3 (4.0-10.0)
[2017-04-15 07:51] LABS: ANION GAP 6 (8-16); CALCIUM 8.5 mg/dL (8.5-10.1); CO2 32 mmol/L (21-32); GLUCOSE,RANDOM 85 mg/dL (74-106)
[2017-04-15 07:54] LABS: CREATININE 0.8 mg/dL (0.7-1.3)
[2017-04-15] MEDS: amLODIPine BESYLATE 10 MG TABLET (FP) PO SCH ×2 (08:31→11:22)
[2017-04-15] MEDS: LISINOPRIL 20 MG TABLET (FP) PO SCH ×2 (08:31→11:22)
[2017-04-15] MEDS: FUROSEMIDE 40 MG TABLET (FP) PO SCH ×2 (08:31→11:22)
[2017-04-15] MEDS: ASPIRIN COATED 81 MG TABLET.EC PO SCH ×2 (08:31→11:22)
--- NOTE | 2017-04-15 09:12 | PN ---
Physical Exam: SUBJECTIVE: Patient seen and examined at bedside. Pt complains of minor reproducible muscle pain in the right leg. Pt has no other complaints at this time. Review of the monitor reveals numerous episodes of bradycardia and a few sporadic episodes of tachycardia overnight. OBJECTIVE: Vital Signs Period Temp Pulse Resp BP Sys/Velasquez Pulse Ox Last 24 Hr 97.5 F-98.7 F 70-87 18-20 135-186/67-110 95-96 GENERAL: The patient is awake, alert, and fully oriented, in no acute distress. HEAD: Normal with no signs of trauma. EYES: exophthalmos, sclera anicteric, conjunctiva clear. No ptosis. ENT: oropharynx clear without exudates, moist mucous membranes. NECK: Trachea midline, full range of motion, supple. LUNGS: Breath sounds equal, clear to auscultation bilaterally, no wheezes, no crackles, no accessory muscle use. HEART: Regular rate and rhythm, normal S1, S2 without murmur, rub or gallop. ABDOMEN: obese, Soft, nontender, nondistended, normoactive bowel sounds, no guarding, no rebound, no hepatosplenomegaly, no masses. EXTREMITIES: 2+ pulses, warm, well-perfused, mild nonpitting edema. NEUROLOGICAL: Cranial nerves II through XII grossly intact. Normal speech, gait not observed. PSYCH: Normal mood, normal affect. SKIN: Warm, dry, normal turgor, no rashes or lesions noted Laboratory Results - last 24 hr 04/14/17 04/14/17 04/14/17 05:55 05:55 05:55 WBC RBC Hgb Hct MCV MCH MCHC RDW Plt Count MPV Neutrophils % Lymphocytes % Monocytes % Eosinophils % Basophils % PTT (Actin FS) Sodium 140 Potassium 3.9 Chloride 100 Carbon Dioxide 35 H Anion Gap 5 L BUN 14 Creatinine 0.9 Random Glucose 82 Calcium 8.6 Creatine Kinase 259 Creatine Kinase Index 0.8 CK-MB (CK-2) 2.579 CK-MB (CK-2) Rel Index Troponin I 2.49 H* TSH 0.71 Free T4 1.10 Free T3 2.7 04/14/17 04/15/17 04/15/17 05:55 05:35 05:35 WBC 6.6 RBC 5.32 Hgb 15.9 Hct 48.1 MCV 90.5 MCH 29.9 MCHC 33.0 RDW 13.4 Plt Count 271 MPV 8.9 Neutrophils % 65.7 Lymphocytes % 21.2 Monocytes % 10.1 Eosinophils % 2.2 Basophils % 0.8 PTT (Actin FS) 52.7 H Sodium Potassium Chloride Carbon Dioxide Anion Gap BUN Creatinine Random Glucose Calcium Creatine Kinase Creatine Kinase Index CK-MB (CK-2) CK-MB (CK-2) Rel Index Cancelled Troponin I TSH Free T4 Free T3 04/15/17 05:35 WBC RBC Hgb Hct MCV MCH MCHC RDW Plt Count MPV Neutrophils % Lymphocytes % Monocytes % Eosinophils % Basophils % PTT (Actin FS) Sodium 138 Potassium 3.9 Chloride 100 Carbon Dioxide 32 Anion Gap 6 L BUN 13 Creatinine 0.8 Random Glucose 85 Calcium 8.5 Creatine Kinase Creatine Kinase Index CK-MB (CK-2) CK-MB (CK-2) Rel Index Troponin I TSH Free T4 Free T3 Active Medications Generic Name Dose Route Start Last Admin Trade Name Freq PRN Reason Stop Dose Admin Acetaminophen 650 mg 04/12/17 08:49 04/15/17 03:49 Tylenol - PO 650 mg Q6H PRN Administration FEVER OR PAIN Amlodipine Besylate 10 mg 04/15/17 10:00 04/15/17 08:31 Norvasc - PO 10 mg DAILY KENDY Administration Aspirin 81 mg 04/12/17 10:00 04/15/17 08:31 Ecotrin - PO 81 mg DAILY KENDY Administration Atorvastatin Calcium 40 mg 04/12/17 22:00 04/14/17 22:42 Lipitor - PO 40 mg HS KENDY Administration Clotrimazole 1 applic 04/11/17 22:00 04/14/17 22:43 Lotrimin 1% Cream - TP 1 applic BID KENDY Administration Furosemide 40 mg 04/14/17 10:00 04/15/17 08:31 Lasix - PO 40 mg DAILY KENDY Administration Heparin Sodium (Porcine) 1,000 unit 04/11/17 14:07 04/12/17 09:54 Heparin - IVPUSH 1,000 unit PRN PRN Administration Heparin Heparin Sodium (Porcine) 5,000 unit 04/11/17 14:07 04/11/17 14:52 Heparin - IVPUSH 5,000 unit PRN PRN Administration Heparin Hydralazine HCl 50 mg 04/14/17 13:15 07/19/17 06:45 Apresoline - PO 50 mg TID KENDY Administration Heparin Sodium/Dextrose 500 mls @ 20 mls/hr 04/11/17 14:00 04/14/17 22:41 Heparin Infusion - IVPB Not Given TITR [facility] Protocol 1,000 UNITS/HR Lisinopril 40 mg 04/11/17 17:15 04/15/17 08:31 Prinivil PO 40 mg DAILY KENDY Administration ASSESSMENT/PLAN: 36M with history og long standing uncontrolled hypertension and obesity who presents to the ED with dizziness shortness of breath and lower extremity edema found to have elevated troponins #NSTEMI -Troponin peak at 3.0 -Plavix 300mg po one -ASA 81mg po daily -Pt given aspirin 324 in ED -heparin gtt -Cardiology consult appreciated -Lasix 40mg PO daily -Lisinopril 40mg PO daily -Norvasc 5mg PO daily -lipitor 40mg PO HS -Echo- moderate concentric LVH -EKG- normal sinus, left anterior fascicular block, incomplete right bundle, ? left atrial hypertrophy, prolonged QT -Check HbA1c - 5.6% -Lipid panel -Cholesterol 187 -LDL 111 -HDL 69 #uncontrolled hypertension/hypertensive urgency -Liptor 40mg po daily -telemetry for cardiac monitoring -Lasix 40mg PO daily -Norvasc 10mg PO daily -Lisinopril 40mg PO daily -Hydralazine 50mg PO TID -Pt still having headaches, not necessarily coincident with episodes of HTN -Head CT to r/o intracranial bleed #CHF: Clinically the patient has CHF with JVD and bilateral lower extremity pitting edema. -Echo- as above -cardiology consult - as above #probable ALEXYS -Upon entering patient's room this am, pt was snoring very loudly -numerous episodes of tachycardia and bradycardia at night -Pt will likely need sleep study as out pt #Tinea Pedis -clotrimazole cream -Instruced on good hygiene techniques #exophthalmos -TSH 0.71, Free T4 1.10, Free T3 2.7 #r/o DM -A1C 5.6% #Obesity -pt counselled on diet and lifestyle modifications #FEN: -No IVF -No electrolyte issues -Cholesterol/Sodium controlled diet #PPx: -On Hep gtt/SCDs -no GI PPx indicated -no PT consult needed at this time Visit type - Emergency Visit Emergency Visit: No - New Patient This patient is new to me today: No - Critical Care Critical Care patient: No - Discharge Referral Referred to [facility] Med P.C.: No
--- NOTE | 2017-04-15 09:19 | PN ---
Teaching Attending Note Name of Resident: Enrike Walsh ATTENDING PHYSICIAN STATEMENT I saw and evaluated the patient. I reviewed the resident's note and discussed the case with the resident. I agree with the resident's findings and plan as documented. SUBJECTIVE: Patient is comfortable with no acute distress, denies having any chest pain, or palpitations. OBJECTIVE: Vital Signs Temperature 97.5 F L 04/15/17 06:00 Pulse Rate 87 04/15/17 06:00 Respiratory Rate 18 04/15/17 06:00 Blood Pressure 135/67 04/15/17 06:00 O2 Sat by Pulse Oximetry (%) 96 04/14/17 22:00 CBCD WBC 6.6 K/mm3 (4.0-10.0) 04/15/17 05:35 RBC 5.32 M/mm3 (4.00-5.60) 04/15/17 05:35 Hgb 15.9 GM/dL (11.7-16.9) 04/15/17 05:35 Hct 48.1 % (35.4-49) 04/15/17 05:35 MCV 90.5 fl (80-96) 04/15/17 05:35 MCHC 33.0 g/dl (32.0-35.9) 04/15/17 05:35 RDW 13.4 % (11.9-15.9) 04/15/17 05:35 Plt Count 271 K/MM3 (134-434) 04/15/17 05:35 MPV 8.9 fl (7.5-11.1) 04/15/17 05:35 CMP Sodium 138 mmol/L (136-145) 04/15/17 05:35 Potassium 3.9 mmol/L (3.5-5.1) 04/15/17 05:35 Chloride 100 mmol/L (98-107) 04/15/17 05:35 Carbon Dioxide 32 mmol/L (21-32) 04/15/17 05:35 Anion Gap 6 (8-16) L 04/15/17 05:35 BUN 13 mg/dL (7-18) 04/15/17 05:35 Creatinine 0.8 mg/dL (0.7-1.3) 04/15/17 05:35 Creat Clearance w eGFR > 60 (>60) 04/11/17 12:33 Random Glucose 85 mg/dL (74-106) 04/15/17 05:35 Calcium 8.5 mg/dL (8.5-10.1) 04/15/17 05:35 Total Bilirubin 1.9 mg/dL (0.2-1.0) H 04/13/17 05:35 AST 25 U/L (15-37) D 04/13/17 05:35 ALT 37 U/L (12-78) 04/13/17 05:35 Alkaline Phosphatase 63 U/L (45-117) 04/13/17 05:35 Total Protein 6.6 g/dl (6.4-8.2) 04/13/17 05:35 Albumin 3.7 g/dl (3.4-5.0) 04/13/17 05:35 CARDIAC ENZYMES Creatine Kinase 259 IU/L (39-308) 04/14/17 05:55 Troponin I 2.49 ng/ml (0.00-0.05) H* 04/14/17 05:55 Current Medications Generic Name Dose Route Start Last Admin Trade Name Cameron PRN Reason Stop Dose Admin Acetaminophen 650 mg 04/12/17 08:49 04/15/17 03:49 Tylenol - PO 650 mg Q6H PRN Administration FEVER OR PAIN Amlodipine Besylate 10 mg 04/15/17 10:00 04/15/17 08:31 Norvasc - PO 10 mg DAILY KENDY Administration Aspirin 81 mg 04/12/17 10:00 04/15/17 08:31 Ecotrin - PO 81 mg DAILY KENDY Administration Atorvastatin Calcium 40 mg 04/12/17 22:00 04/14/17 22:42 Lipitor - PO 40 mg HS KENDY Administration Clotrimazole 1 applic 04/11/17 22:00 04/14/17 22:43 Lotrimin 1% Cream - TP 1 applic BID KENDY Administration Furosemide 40 mg 04/14/17 10:00 04/15/17 08:31 Lasix - PO 40 mg DAILY KENDY Administration Heparin Sodium (Porcine) 1,000 unit 04/11/17 14:07 04/12/17 09:54 Heparin - IVPUSH 1,000 unit PRN PRN Administration Heparin Heparin Sodium (Porcine) 5,000 unit 04/11/17 14:07 04/11/17 14:52 Heparin - IVPUSH 5,000 unit PRN PRN Administration Heparin Hydralazine HCl 50 mg 04/14/17 13:15 04/15/17 06:45 Apresoline - PO 50 mg TID KENDY Administration Heparin Sodium/Dextrose 500 mls @ 20 mls/hr 04/11/17 14:00 04/14/17 22:41 Heparin Infusion - IVPB Not Given TITR KENDY Protocol 1,000 UNITS/HR Lisinopril 40 mg 04/11/17 17:15 04/15/17 08:31 Prinivil PO 40 mg DAILY KENDY Administration Home Medications Medication Instructions Recorded NK [No Known Home Medication] 04/11/17 Laboratory Tests 04/11/17 04/11/17 04/11/17 12:33 18:15 23:20 CK-MB (CK-2) 4.258 H 3.797 H 3.827 H Troponin I 2.80 H* 2.87 H* 3.00 H* TSH Free T4 Free T3 04/12/17 04/13/17 04/14/17 05:35 05:35 05:55 CK-MB (CK-2) 2.672 Troponin I 2.80 H* 2.51 H* TSH 0.71 Free T4 1.10 Free T3 04/14/17 04/14/17 05:55 05:55 CK-MB (CK-2) 2.579 Troponin I 2.49 H* TSH Free T4 Free T3 2.7 PE: per resident's note ASSESSMENT AND PLAN: 36yo M with PMHx of morbid obesity presented to the ER with CLIFFORD and found to be in HTN emergency with blood pressure of 203/119 # HTN emergency- BP is better today .Increased hydralazine to 50mg TID, and lowered the dose of norvasc to 5mg daily since having edema of lower extremities. # NSVT- no recurrent episodes. in light of NSVT, unable to place on betablocker due to bradycardia. going for cardiac cath. as per and would like him to have stress test prior to Cath. brain optimize his electrolytes, mg and potassium. # NSTEMI- positive troponin x 3. on heparin ggt. Stress test cancelled due to NSVT. would highly recommended cardiac cath as stress test. # Proptosis; possible normal variant - no symptoms of hyperthyroidism. TSH WNL. can be repeated # ALEXYS- high suspicion of ALEXYS in setting of significant pauses on monitor during sleep. polysomography as outpatient # Morbid obesity- BMI 41. diet and lifestyle changes. should consider bariatric workup after cardiac issues optimized DVT ppx-hep ggt will get head Ct to r/o Bleed since presented with elevated HTN and c/o headache.
--- NOTE | 2017-04-15 09:59 | CONSULT ---
Consult - text type - Consultation Consultation Note: cardiology no symptoms BP 135/80 150/80 normal cardio-pulmonary exam abdomen soft leg edema Impression: NSTEMI, trop 2.5; Lexiscan NST & Left heart cath no CHF; Echocardiogram normal, moderate LVH severe sleep apnea, obesity, bradycardia pause 3.8 sec; wenkeback; off beta- blockers, no more episodes BP improved, uptitrate hydralazine if BP elevated Rec: continue care
[2017-04-15] MEDS: CLOTRIMAZOLE 1% CREAM 15 GM TUBE TP SCH ×2 (14:08→21:33)
[2017-04-15] MEDS: HEPARIN INFUSION - 500 ML IVPB SCH (14:09)
--- NOTE | 2017-04-15 14:54 | EKG ---
Test Reason : Blood Pressure : / mmHG Vent. Rate : 087 BPM Atrial Rate : 087 BPM P-R Int : 164 ms QRS Dur : 100 ms QT Int : 388 ms P-R-T Axes : 054 -52 073 degrees QTc Int : 466 ms NORMAL SINUS RHYTHM BIATRIAL ENLARGEMENT PULMONARY DISEASE PATTERN INCOMPLETE RIGHT BUNDLE BRANCH BLOCK LEFT ANTERIOR FASCICULAR BLOCK NONSPECIFIC T WAVE ABNORMALITY PROLONGED QT ABNORMAL ECG NO PREVIOUS ECGS AVAILABLE Confirmed by GARETT PRUITT, JEANNE ([id number]) on 04/15/2017 2:54:25 PM Referred By: Confirmed By:JEANNE BAJWA MD
[2017-04-15] MEDS ORDERED: INSULIN (NOVOLOG) ASPART 100 UNITS/ML 10ML VIAL ONE (16:39)
[2017-04-15] MEDS: ATORVASTATIN CA 40 MG TABLET (FP) PO SCH (21:29)
[2017-04-16] MEDS: hydrALAZINE HCL 50 MG TABLET (FP) PO SCH ×3 (05:32→21:58)
[2017-04-16] MEDS: ACETAMINOPHEN 325 MG TABLET (FP) PO PRN (06:46)
[2017-04-16 07:39] LABS: ANION GAP 9 (8-16); CALCIUM 8.7 mg/dL (8.5-10.1); CO2 29 mmol/L (21-32); CREATININE 0.8 mg/dL (0.7-1.3); GLUCOSE,RANDOM 83 mg/dL (74-106)
[2017-04-16] MEDS: amLODIPine BESYLATE 10 MG TABLET (FP) PO SCH (08:18)
[2017-04-16] MEDS: FUROSEMIDE 40 MG TABLET (FP) PO SCH (08:18)
[2017-04-16] MEDS: LISINOPRIL 20 MG TABLET (FP) PO SCH (08:18)
[2017-04-16 08:41] LABS: BASOPHIL 0.5 % (0-2.0); EOSINOPHIL 1.7 % (0-4.5); MCH 30.2 pg (25.7-33.7); MCHC 33.1 g/dl (32.0-35.9); MEAN CELL VOLUME 91.1 fl (80-96); NEUTROPHILS 64.2 % (42.8-82.8); PLATELET COUNT 248 K/MM3 (134-434); RDW 13.8 % (11.9-15.9); WHITE BLOOD COUNT 6.3 K/mm3 (4.0-10.0)
[2017-04-16] MEDS ORDERED: DIPYRIDAMOLE STRESS TEST 50 MG in DEXTROSE 5%-WATER - 40 ML IVPB ONE (10:00)
[2017-04-16] MEDS ORDERED: AMINOPHYLLINE 250 MG/10 ML VIAL ONE (12:20)
[2017-04-16] MEDS: ASPIRIN COATED 81 MG TABLET.EC PO SCH (13:10)
--- NOTE | 2017-04-16 15:29 | PN ---
Teaching Attending Note Name of Resident: Enrike Walsh ATTENDING PHYSICIAN STATEMENT I saw and evaluated the patient. I reviewed the resident's note and discussed the case with the resident. I agree with the resident's findings and plan as documented. SUBJECTIVE: Patient is going for stress test. OBJECTIVE: Vital Signs Temperature 98.2 F 04/16/17 08:00 Pulse Rate 90 04/16/17 08:00 Respiratory Rate 18 04/16/17 09:00 Blood Pressure 129/88 04/16/17 10:02 O2 Sat by Pulse Oximetry (%) 98 04/16/17 09:00 CBCD WBC 6.3 K/mm3 (4.0-10.0) 04/16/17 05:35 RBC 5.67 M/mm3 (4.00-5.60) H 04/16/17 05:35 Hgb 17.1 GM/dL (11.7-16.9) H 04/16/17 05:35 Hct 51.6 % (35.4-49) H 04/16/17 05:35 MCV 91.1 fl (80-96) 04/16/17 05:35 MCHC 33.1 g/dl (32.0-35.9) 04/16/17 05:35 RDW 13.8 % (11.9-15.9) 04/16/17 05:35 Plt Count 248 K/MM3 (134-434) 04/16/17 05:35 MPV 9.0 fl (7.5-11.1) 04/16/17 05:35 CMP Sodium 140 mmol/L (136-145) 04/16/17 05:35 Potassium 4.0 mmol/L (3.5-5.1) 04/16/17 05:35 Chloride 102 mmol/L (98-107) 04/16/17 05:35 Carbon Dioxide 29 mmol/L (21-32) 04/16/17 05:35 Anion Gap 9 (8-16) 04/16/17 05:35 BUN 12 mg/dL (7-18) 04/16/17 05:35 Creatinine 0.8 mg/dL (0.7-1.3) 04/16/17 05:35 Creat Clearance w eGFR > 60 (>60) 04/11/17 12:33 Random Glucose 83 mg/dL (74-106) 04/16/17 05:35 Calcium 8.7 mg/dL (8.5-10.1) 04/16/17 05:35 Total Bilirubin 1.9 mg/dL (0.2-1.0) H 04/13/17 05:35 AST 25 U/L (15-37) D 04/13/17 05:35 ALT 37 U/L (12-78) 04/13/17 05:35 Alkaline Phosphatase 63 U/L (45-117) 04/13/17 05:35 Total Protein 6.6 g/dl (6.4-8.2) 04/13/17 05:35 Albumin 3.7 g/dl (3.4-5.0) 04/13/17 05:35 CARDIAC ENZYMES Creatine Kinase 259 IU/L (39-308) 04/14/17 05:55 Troponin I 2.49 ng/ml (0.00-0.05) H* 04/14/17 05:55 Current Medications Generic Name Dose Route Start Last Admin Trade Name Napoleonq PRN Reason Stop Dose Admin Acetaminophen 650 mg 04/12/17 08:49 04/16/17 06:46 Tylenol - PO 650 mg Q6H PRN Administration FEVER OR PAIN Amlodipine Besylate 5 mg 04/15/17 11:50 04/16/17 08:18 Norvasc - PO 5 mg DAILY KENDY Administration Aspirin 81 mg 04/12/17 10:00 04/16/17 13:10 Ecotrin - PO 81 mg DAILY KENDY Administration Atorvastatin Calcium 40 mg 04/12/17 22:00 04/15/17 21:29 Lipitor - PO 40 mg HS KENDY Administration Clotrimazole 1 applic 04/11/17 22:00 04/15/17 21:33 Lotrimin 1% Cream - TP 1 applic BID KENDY Administration Furosemide 40 mg 04/14/17 10:00 04/16/17 08:18 Lasix - PO 40 mg DAILY KENDY Administration Heparin Sodium (Porcine) 1,000 unit 04/11/17 14:07 04/12/17 09:54 Heparin - IVPUSH 1,000 unit PRN PRN Administration Heparin Heparin Sodium (Porcine) 5,000 unit 04/11/17 14:07 04/11/17 14:52 Heparin - IVPUSH 5,000 unit PRN PRN Administration Heparin Hydralazine HCl 50 mg 04/14/17 13:15 04/16/17 14:44 Apresoline - PO 50 mg TID KENDY Administration Heparin Sodium/Dextrose 500 mls @ 20 mls/hr 04/11/17 14:00 04/15/17 14:09 Heparin Infusion - IVPB 21 mls/hr TITR KENDY Administration Protocol 1,000 UNITS/HR Lisinopril 40 mg 04/11/17 17:15 04/16/17 08:18 Prinivil PO 40 mg DAILY KENDY Administration Home Medications Medication Instructions Recorded NK [No Known Home Medication] 04/11/17 PE: per resident's day ASSESSMENT AND PLAN: 36yo M with PMHx of morbid obesity presented to the ER with CLIFFORD and found to be in HTN emergency with blood pressure of 203/119. # NSTEMI- positive troponin x 3. on heparin ggt. On aspirin; plavix, Nuclear stress test: moderate ischemia in inferolateral, lateral, and anterolateral fernández. Small anterior wall infarct. LVEF 32% with global hypokinesis. Echo- moderate concentric LVH Lipid panel :Cholesterol 187,LDL 111,HDL 69 # HTN emergency- BP is better today .Increased hydralazine to 50mg TID, and lowered the dose of norvasc to 5mg daily since having edema of lower extremities. # NSVT- no recurrent episodes. on the case. s/p stress test going for Cath. [facility]. Continue current meds. # Proptosis; possible normal variant - no symptoms of hyperthyroidism. TSH WNL. can be repeated # ALEXYS- high suspicion of ALEXYS in setting of significant pauses on monitor during sleep. polysomography as outpatient # Morbid obesity- BMI 41. diet and lifestyle changes. should consider bariatric workup after cardiac issues optimized DVT ppx-hep ggt Ct of the head no Bleed, since presented with elevated HTN and c/o headache. - -
--- NOTE | 2017-04-16 15:32 | PN ---
Physical Exam: SUBJECTIVE: Patient seen and examined at bedside. No acute events overnight. Pt continues to have tachycardic and bradycardic episodes on the monitor while sleeping. No pain. Pt has no complaints at this time. OBJECTIVE: Vital Signs Period Temp Pulse Resp BP Sys/Velasquez Pulse Ox Last 24 Hr 98 F-98.8 F 78-90 18-20 129-172/77-110 98-98 GENERAL: The patient is awake, alert, and fully oriented, in no acute distress. HEAD: Normal with no signs of trauma. EYES: exophthalmos, sclera anicteric, conjunctiva clear. No ptosis. ENT: oropharynx clear without exudates, moist mucous membranes. NECK: Trachea midline, full range of motion, supple. LUNGS: Breath sounds equal, clear to auscultation bilaterally, no wheezes, no crackles, no accessory muscle use. HEART: Regular rate and rhythm, normal S1, S2 without murmur, rub or gallop. ABDOMEN: obese, Soft, nontender, nondistended, normoactive bowel sounds, no guarding, no rebound, no hepatosplenomegaly, no masses. EXTREMITIES: 2+ pulses, warm, well-perfused, mild nonpitting edema. NEUROLOGICAL: Cranial nerves II through XII grossly intact. Normal speech, gait not observed. PSYCH: Normal mood, normal affect. SKIN: Warm, dry, normal turgor, no rashes or lesions noted Laboratory Results - last 24 hr 04/16/17 04/16/17 04/16/17 05:35 05:35 05:35 WBC 6.3 RBC 5.67 H Hgb 17.1 H Hct 51.6 H MCV 91.1 MCH 30.2 MCHC 33.1 RDW 13.8 Plt Count 248 MPV 9.0 Neutrophils % 64.2 Lymphocytes % 24.2 Monocytes % 9.4 Eosinophils % 1.7 Basophils % 0.5 PTT (Actin FS) 58.9 H Sodium 140 Potassium 4.0 Chloride 102 Carbon Dioxide 29 Anion Gap 9 BUN 12 Creatinine 0.8 Random Glucose 83 Calcium 8.7 Active Medications Generic Name Dose Route Start Last Admin Trade Name Freq PRN Reason Stop Dose Admin Acetaminophen 650 mg 04/12/17 08:49 04/16/17 06:46 Tylenol - PO 650 mg Q6H PRN Administration FEVER OR PAIN Amlodipine Besylate 5 mg 04/15/17 11:50 04/16/17 08:18 Norvasc - PO 5 mg DAILY KENDY Administration Aspirin 81 mg 04/12/17 10:00 04/16/17 13:10 Ecotrin - PO 81 mg DAILY KENDY Administration Atorvastatin Calcium 40 mg 04/12/17 22:00 04/15/17 21:29 Lipitor - PO 40 mg HS KENDY Administration Clotrimazole 1 applic 04/11/17 22:00 04/15/17 21:33 Lotrimin 1% Cream - TP 1 applic BID KENDY Administration Furosemide 40 mg 04/14/17 10:00 04/16/17 08:18 Lasix - PO 40 mg DAILY KENDY Administration Heparin Sodium (Porcine) 1,000 unit 04/11/17 14:07 04/12/17 09:54 Heparin - IVPUSH 1,000 unit PRN PRN Administration Heparin Heparin Sodium (Porcine) 5,000 unit 04/11/17 14:07 04/11/17 14:52 Heparin - IVPUSH 5,000 unit PRN PRN Administration Heparin Hydralazine HCl 50 mg 04/14/17 13:15 04/16/17 14:44 Apresoline - PO 50 mg TID KENDY Administration Heparin Sodium/Dextrose 500 mls @ 20 mls/hr 04/11/17 14:00 04/15/17 14:09 Heparin Infusion - IVPB 21 mls/hr TITR KENDY Administration Protocol 1,000 UNITS/HR Lisinopril 40 mg 04/11/17 17:15 04/16/17 08:18 Prinivil PO 40 mg DAILY KENDY Administration ASSESSMENT/PLAN: 36M with history og long standing uncontrolled hypertension and obesity who presents to the ED with dizziness shortness of breath and lower extremity edema found to have elevated troponins #NSTEMI -Troponin peak at 3.0 -Plavix 300mg po once -ASA 81mg po daily -Pt given aspirin 324 in ED -heparin gtt -Cardiology consult appreciated -Lasix 40mg PO daily -Lisinopril 40mg PO daily -Norvasc 5mg PO daily -lipitor 40mg PO HS -Echo- moderate concentric LVH -EKG- normal sinus, left anterior fascicular block, incomplete right bundle, ? left atrial hypertrophy, prolonged QT -Check HbA1c - 5.6% -Lipid panel -Cholesterol 187 -LDL 111 -HDL 69 -Nuclear stress test: moderate ischemia in inferolateral, lateral, and anterolateral fernández. Small anterior wall infarct. LVEF 32% with global hypokinesis. #uncontrolled hypertension/hypertensive urgency: pt had systolic in 170's before meds this am, so meds were given early. -Liptor 40mg po daily -telemetry for cardiac monitoring -Lasix 40mg PO daily -Norvasc 5mg PO daily -Lisinopril 40mg PO daily -Hydralazine 50mg PO TID -Pt still having headaches, not necessarily coincident with episodes of HTN -Head CT neg for intracranial bleed #CHF: Clinically the patient has CHF with JVD and bilateral lower extremity pitting edema. -Echo- as above -cardiology consult - as above -nuclear stress test - as above #probable ALEXYS -Upon entering patient's room this am, pt was snoring very loudly -numerous episodes of tachycardia and bradycardia at night -Pt will likely need sleep study as out pt -ABG to r/o CO2 retention #Tinea Pedis -clotrimazole cream -Instruced on good hygiene techniques #exophthalmos -TSH 0.71, Free T4 1.10, Free T3 2.7 #r/o DM -A1C 5.6% #Obesity -pt counselled on diet and lifestyle modifications #FEN: -No IVF -No electrolyte issues -Cholesterol/Sodium controlled diet #PPx: -On Hep gtt/SCDs -no GI PPx indicated -no PT consult needed at this time Visit type - Emergency Visit Emergency Visit: Yes ED Registration Date: 04/11/17 Care time: The patient presented to the Emergency Department on the above date and was hospitalized for further evaluation of their emergent condition. - New Patient This patient is new to me today: No - Critical Care Critical Care patient: No - Discharge Referral Referred to [facility] Med P.C.: No
[2017-04-16 16:27] LABS: ALLENS TEST POSITIVE; ART PUNCT SITE LEFT RADIAL; ARTERIAL BLD GAS O2 SATURATION 95.1 % (90-98.9); ARTERIAL BLOOD GAS BASE EXCESS 4.1 meq/l (-2-2); ARTERIAL BLOOD GAS HCO3 28.6 meq/L (22-26); ARTERIAL BLOOD GAS pH 7.43 (7.35-7.45); LPM/O2% 21%; PT. ON O2? NO; TYPE OF O2 ROOM AIR
--- NOTE | 2017-04-16 16:27 | EKG ---
Test Reason : Blood Pressure : / mmHG Vent. Rate : 083 BPM Atrial Rate : 083 BPM P-R Int : 164 ms QRS Dur : 108 ms QT Int : 402 ms P-R-T Axes : 058 249 095 degrees QTc Int : 472 ms NORMAL SINUS RHYTHM BIATRIAL ENLARGEMENT RIGHT SUPERIOR AXIS DEVIATION PULMONARY DISEASE PATTERN T WAVE ABNORMALITY, CONSIDER LATERAL ISCHEMIA PROLONGED QT ABNORMAL ECG WHEN COMPARED WITH ECG OF 11-APR-2017 17:32, LEFT ANTERIOR FASCICULAR BLOCK IS NO LONGER PRESENT T WAVE INVERSION NOW EVIDENT IN LATERAL LEADS Confirmed by MEETA HERNANDEZ MD ([id number]) on 04/16/2017 4:26:52 PM Referred By: ALISTAIR LEUNG Confirmed By:MEETA HERNANDEZ MD
[2017-04-16 16:28] LABS: ARTERIAL BLOOD GAS PO2 72.1 mmHg (80-100)
[2017-04-16] MEDS: HEPARIN INFUSION - 500 ML IVPB SCH (17:04)
[2017-04-16] MEDS: ATORVASTATIN CA 40 MG TABLET (FP) PO SCH (21:57)
[2017-04-16] MEDS: CLOTRIMAZOLE 1% CREAM 15 GM TUBE TP SCH ×2 (22:00→22:01)
[2017-04-17] MEDS: hydrALAZINE HCL 50 MG TABLET (FP) PO SCH ×2 (05:43→14:01)
--- NOTE | 2017-04-17 06:32 | PN ---
Physical Exam: SUBJECTIVE: Patient seen and examined at bedside. Pt had no complaints at this time. States he is eager to receive his treatment and go home. Monitor shows numerous episodes of tachy and dev. Pt denies headache, cp, sob, nausea, sweating, vomiting, abd pain, diarrhea, dysuria, fever. OBJECTIVE: Vital Signs Period Temp Pulse Resp BP Sys/Velasquez Pulse Ox Last 24 Hr 98 F-98.6 F 84-97 18-20 129-172/87-112 95-98 GENERAL: The patient is awake, alert, and fully oriented, in no acute distress. HEAD: Normal with no signs of trauma. EYES: exophthalmos, sclera anicteric, conjunctiva clear. No ptosis. ENT: oropharynx clear without exudates, moist mucous membranes. NECK: Trachea midline, full range of motion, supple. LUNGS: Breath sounds equal, clear to auscultation bilaterally, no wheezes, no crackles, no accessory muscle use. HEART: Regular rate and rhythm, normal S1, S2 without murmur, rub or gallop. ABDOMEN: Soft, nontender, nondistended, normoactive bowel sounds, no guarding, no rebound, no hepatosplenomegaly, no masses. EXTREMITIES: 2+ pulses, warm, well-perfused, 1+ edema b/l. NEUROLOGICAL: Cranial nerves II through XII grossly intact. Normal speech, gait not observed. PSYCH: Normal mood, normal affect. SKIN: Warm, dry, normal turgor, no rashes or lesions noted Laboratory Results - last 24 hr 04/16/17 04/16/17 04/16/17 05:35 05:35 05:35 WBC 6.3 RBC 5.67 H Hgb 17.1 H Hct 51.6 H MCV 91.1 MCH 30.2 MCHC 33.1 RDW 13.8 Plt Count 248 MPV 9.0 Neutrophils % 64.2 Lymphocytes % 24.2 Monocytes % 9.4 Eosinophils % 1.7 Basophils % 0.5 PTT (Actin FS) 58.9 H Puncture Site ABG pH ABG pCO2 at Pt Temp ABG pO2 at Pt Temp ABG HCO3 ABG O2 Sat (Measured) ABG O2 Content ABG Base Excess Sawyer Test O2 Delivery Device Oxygen Flow Rate PEEP Sodium 140 Potassium 4.0 Chloride 102 Carbon Dioxide 29 Anion Gap 9 BUN 12 Creatinine 0.8 Random Glucose 83 Calcium 8.7 04/16/17 16:16 WBC RBC Hgb Hct MCV MCH MCHC RDW Plt Count MPV Neutrophils % Lymphocytes % Monocytes % Eosinophils % Basophils % PTT (Actin FS) Puncture Site Left radial ABG pH 7.43 ABG pCO2 at Pt Temp 43.3 ABG pO2 at Pt Temp 72.1 L ABG HCO3 28.6 H ABG O2 Sat (Measured) 95.1 ABG O2 Content 22.7 H ABG Base Excess 4.1 H Sawyer Test Positive O2 Delivery Device Room air Oxygen Flow Rate 21% PEEP 0.0 Sodium Potassium Chloride Carbon Dioxide Anion Gap BUN Creatinine Random Glucose Calcium Active Medications Generic Name Dose Route Start Last Admin Trade Name Freq PRN Reason Stop Dose Admin Acetaminophen 650 mg 04/12/17 08:49 04/16/17 06:46 Tylenol - PO 650 mg Q6H PRN Administration FEVER OR PAIN Amlodipine Besylate 5 mg 04/15/17 11:50 04/16/17 08:18 Norvasc - PO 5 mg DAILY KENDY Administration Aspirin 81 mg 04/12/17 10:00 04/16/17 13:10 Ecotrin - PO 81 mg DAILY KENDY Administration Atorvastatin Calcium 40 mg 04/12/17 22:00 04/16/17 21:57 Lipitor - PO 40 mg HS KENDY Administration Clotrimazole 1 applic 04/11/17 22:00 04/16/17 22:01 Lotrimin 1% Cream - TP 1 applic BID KENDY Administration Furosemide 40 mg 04/14/17 10:00 04/16/17 08:18 Lasix - PO 40 mg DAILY KENDY Administration Heparin Sodium (Porcine) 1,000 unit 04/11/17 14:07 04/12/17 09:54 Heparin - IVPUSH 1,000 unit PRN PRN Administration Heparin Heparin Sodium (Porcine) 5,000 unit 04/11/17 14:07 04/11/17 14:52 Heparin - IVPUSH 5,000 unit PRN PRN Administration Heparin Hydralazine HCl 50 mg 04/14/17 13:15 04/17/17 05:43 Apresoline - PO 50 mg TID KENDY Administration Heparin Sodium/Dextrose 500 mls @ 20 mls/hr 04/11/17 14:00 04/16/17 17:04 Heparin Infusion - IVPB 21 mls/hr TITR KENDY Administration Protocol 1,000 UNITS/HR Lisinopril 40 mg 04/11/17 17:15 04/16/17 08:18 Prinivil PO 40 mg DAILY KENDY Administration ASSESSMENT/PLAN: 36M with history og long standing uncontrolled hypertension and obesity who presents to the ED with dizziness shortness of breath and lower extremity edema found to have elevated troponins #NSTEMI -Troponin peak at 3.0 -Plavix 300mg po once -ASA 81mg po daily -Pt given aspirin 324 in ED -heparin gtt -Cardiology consult appreciated -Lasix 40mg PO daily -Lisinopril 40mg PO daily -Norvasc 5mg PO daily -lipitor 40mg PO HS -Echo- moderate concentric LVH -EKG- normal sinus, left anterior fascicular block, incomplete right bundle, ? left atrial hypertrophy, prolonged QT -Check HbA1c - 5.6% -Lipid panel -Cholesterol 187 -LDL 111 -HDL 69 -Nuclear stress test: moderate ischemia in inferolateral, lateral, and anterolateral fernández. Small anterior wall infarct. LVEF 32% with global hypokinesis. -PENDING CARDS RECS REGARDING CATH #uncontrolled hypertension/hypertensive urgency: pt had systolic in 170's before meds this am, so meds were given early. -Liptor 40mg po daily -telemetry for cardiac monitoring -Lasix 40mg PO daily -Norvasc 5mg PO daily -Lisinopril 40mg PO daily -Hydralazine 50mg PO TID -Pt still having headaches, not necessarily coincident with episodes of HTN -Head CT neg for intracranial bleed #CHF: Clinically the patient has CHF with JVD and bilateral lower extremity pitting edema. -Echo- as above -cardiology consult - as above -nuclear stress test - as above #probable ALEXYS -Upon entering patient's room this am, pt was snoring very loudly -numerous episodes of tachycardia and bradycardia at night -Pt will likely need sleep study as out pt -ABG to r/o CO2 retention #Tinea Pedis -clotrimazole cream -Instruced on good hygiene techniques #exophthalmos -TSH 0.71, Free T4 1.10, Free T3 2.7 #r/o DM -A1C 5.6% #Obesity -pt counselled on diet and lifestyle modifications #FEN: -No IVF -No electrolyte issues -Cholesterol/Sodium controlled diet #PPx: -On Hep gtt/SCDs -no GI PPx indicated -no PT consult needed at this time Visit type - Emergency Visit Emergency Visit: No - New Patient This patient is new to me today: No - Critical Care Critical Care patient: No
[2017-04-17] MEDS: ACETAMINOPHEN 325 MG TABLET (FP) PO PRN (07:45)
[2017-04-17 08:11] LABS: BASOPHIL 0.4 % (0-2.0); EOSINOPHIL 0.6 % (0-4.5); MCH 30.2 pg (25.7-33.7); MCHC 33.3 g/dl (32.0-35.9); MEAN CELL VOLUME 90.8 fl (80-96); MEAN PLT VOLUME 9.4 fl (7.5-11.1); NEUTROPHILS 70.5 % (42.8-82.8); PLATELET COUNT 254 K/MM3 (134-434); RDW 13.7 % (11.9-15.9); WHITE BLOOD COUNT 7.2 K/mm3 (4.0-10.0)
--- NOTE | 2017-04-17 08:23 | CONSULT ---
Consult - text type - Consultation Consultation Note: cardiology no symptoms BP 135/80 150/80 normal cardio-pulmonary exam abdomen soft leg edema Impression: NSTEMI, trop 2.5; Lexiscan NST & Left heart cath no CHF; Echocardiogram normal, moderate LVH severe sleep apnea, obesity, bradycardia pause 3.8 sec; wenkeback; off beta- blockers, no more episodes BP improved Nuclear stress test moderate ischemia, EF 32 % moderate global hypokinesis Rec: Left heart cath, transfer today Echocardiogram lipids TSH
[2017-04-17 08:31] LABS: ALK PHOS 73 U/L (45-117); ANION GAP 8 (8-16); BILIRUBIN,TOTAL 1.5 mg/dL (0.2-1.0); CALCIUM 9.2 mg/dL (8.5-10.1); CO2 29 mmol/L (21-32); GLUCOSE,RANDOM 80 mg/dL (74-106); SGOT/AST 114 U/L (15-37); SGPT/ALT 169 U/L (12-78); TOT PROT 7.3 g/dl (6.4-8.2)
[2017-04-17] MEDS: HEPARIN NA (PORCINE) 5,000 UNITS/ML 1ML VIAL IVPUSH PRN (09:02)
[2017-04-17] MEDS: LISINOPRIL 20 MG TABLET (FP) PO SCH (09:03)
[2017-04-17] MEDS: ASPIRIN COATED 81 MG TABLET.EC PO SCH (09:04)
[2017-04-17] MEDS: amLODIPine BESYLATE 10 MG TABLET (FP) PO SCH (09:04)
[2017-04-17] MEDS: CLOTRIMAZOLE 1% CREAM 15 GM TUBE TP SCH (09:05)
[2017-04-17] MEDS: FUROSEMIDE 40 MG TABLET (FP) PO SCH (09:05)
--- NOTE | 2017-04-17 10:15 | EKG ---
Test Reason : Blood Pressure : / mmHG Vent. Rate : 094 BPM Atrial Rate : 094 BPM P-R Int : 156 ms QRS Dur : 098 ms QT Int : 380 ms P-R-T Axes : 054 217 082 degrees QTc Int : 475 ms NORMAL SINUS RHYTHM WITH SINUS ARRHYTHMIA BIATRIAL ENLARGEMENT INCOMPLETE RIGHT BUNDLE BRANCH BLOCK POSSIBLE LATERAL INFARCT , AGE UNDETERMINED ABNORMAL ECG Confirmed by MD MADONNA, LUCERO ([id number]) on 04/17/2017 10:14:50 AM Referred By: ALISTAIR VÁZQUEZ Confirmed By:LUCERO PEACOCK MD
[2017-04-17] MEDS ORDERED: ATORVASTATIN CA 20 MG TABLET (FP) PO SCH (10:27)
[2017-04-17 10:31] LABS: TROPONIN I 2.35 ng/ml (0.00-0.05)
[2017-04-17] MEDS: CEPHALEXIN MONOHYDRATE 500 MG CAPSULE (UD) PO SCH ×2 (12:02→17:34)
[2017-04-17] MEDS: HEPARIN INFUSION - 500 ML IVPB SCH (14:02)
--- NOTE | 2017-04-17 16:12 | PN ---
Teaching Attending Note Name of Resident: Enrike Walsh ATTENDING PHYSICIAN STATEMENT I saw and evaluated the patient. I reviewed the resident's note and discussed the case with the resident. I agree with the resident's findings and plan as documented. SUBJECTIVE: Patient is feeling better, denies any chest pain. Getting transferred to [facility]. OBJECTIVE: Vital Signs Temperature 98.2 F 04/17/17 15:47 Pulse Rate 99 H 04/17/17 15:47 Respiratory Rate 20 04/17/17 15:47 Blood Pressure 166/73 04/17/17 15:47 O2 Sat by Pulse Oximetry (%) 95 04/17/17 09:00 CBCD WBC 7.2 K/mm3 (4.0-10.0) 04/17/17 05:53 RBC 5.65 M/mm3 (4.00-5.60) H 04/17/17 05:53 Hgb 17.1 GM/dL (11.7-16.9) H 04/17/17 05:53 Hct 51.3 % (35.4-49) H 04/17/17 05:53 MCV 90.8 fl (80-96) 04/17/17 05:53 MCHC 33.3 g/dl (32.0-35.9) 04/17/17 05:53 RDW 13.7 % (11.9-15.9) 04/17/17 05:53 Plt Count 254 K/MM3 (134-434) 04/17/17 05:53 MPV 9.4 fl (7.5-11.1) 04/17/17 05:53 CMP Sodium 138 mmol/L (136-145) 04/17/17 05:53 Potassium 4.1 mmol/L (3.5-5.1) 04/17/17 05:53 Chloride 101 mmol/L (98-107) 04/17/17 05:53 Carbon Dioxide 29 mmol/L (21-32) 04/17/17 05:53 Anion Gap 8 (8-16) 04/17/17 05:53 BUN 14 mg/dL (7-18) 04/17/17 05:53 Creatinine 1.0 mg/dL (0.7-1.3) D 04/17/17 05:53 Creat Clearance w eGFR > 60 (>60) 04/17/17 05:53 Random Glucose 80 mg/dL (74-106) 04/17/17 05:53 Calcium 9.2 mg/dL (8.5-10.1) 04/17/17 05:53 Total Bilirubin 1.5 mg/dL (0.2-1.0) H D 04/17/17 05:53 AST 114 U/L (15-37) H D 04/17/17 05:53 ALT 169 U/L (12-78) H D 04/17/17 05:53 Alkaline Phosphatase 73 U/L (45-117) 04/17/17 05:53 Total Protein 7.3 g/dl (6.4-8.2) 04/17/17 05:53 Albumin 4.0 g/dl (3.4-5.0) 04/17/17 05:53 CARDIAC ENZYMES Creatine Kinase 263 IU/L (39-308) 04/17/17 05:53 Troponin I 2.35 ng/ml (0.00-0.05) H* 04/17/17 05:53 Current Medications Generic Name Dose Route Start Last Admin Trade Name Freq PRN Reason Stop Dose Admin Acetaminophen 650 mg 04/12/17 08:49 04/17/17 07:45 Tylenol - PO 650 mg Q6H PRN Administration FEVER OR PAIN Amlodipine Besylate 5 mg 04/15/17 11:50 04/17/17 09:04 Norvasc - PO 5 mg DAILY KENDY Administration Aspirin 81 mg 04/12/17 10:00 04/17/17 09:04 Ecotrin - PO 81 mg DAILY KENDY Administration Atorvastatin Calcium 20 mg 04/17/17 10:27 Lipitor - PO HS KENDY Cephalexin HCl 500 mg 04/17/17 12:00 04/17/17 12:02 Keflex - PO 500 mg Q6HPO KENDY Administration Clotrimazole 1 applic 04/11/17 22:00 04/17/17 09:05 Lotrimin 1% Cream - TP Not Given BID KENDY Furosemide 40 mg 04/14/17 10:00 04/17/17 09:05 Lasix - PO 40 mg DAILY KENDY Administration Heparin Sodium (Porcine) 1,000 unit 04/11/17 14:07 04/17/17 09:02 Heparin - IVPUSH 1,000 unit PRN PRN Administration Heparin Heparin Sodium (Porcine) 5,000 unit 04/11/17 14:07 04/11/17 14:52 Heparin - IVPUSH 5,000 unit PRN PRN Administration Heparin Hydralazine HCl 50 mg 04/14/17 13:15 04/17/17 14:01 Apresoline - PO 50 mg TID KENDY Administration Heparin Sodium/Dextrose 500 mls @ 20 mls/hr 04/11/17 14:00 04/17/17 14:02 Heparin Infusion - IVPB Not Given TITR KENDY Protocol 1,000 UNITS/HR Lisinopril 40 mg 04/11/17 17:15 04/17/17 09:03 Prinivil PO 40 mg DAILY KENDY Administration Home Medications Medication Instructions Recorded Acetaminophen [Tylenol .Regular 650 mg PO Q6H PRN #0 tablet 04/17/17 Strength -] Amlodipine Besylate [Norvasc -] 5 mg PO DAILY tablet 04/17/17 Aspirin Coated [Ecotrin -] 81 mg PO DAILY tab 04/17/17 Atorvastatin Ca [Lipitor] 40 mg PO HS tablet 04/17/17 Clotrimazole [Lotrimin -] 1 applic TP BID tube 04/17/17 Furosemide [Lasix -] 40 mg PO DAILY tablet 04/17/17 Heparin - 1,000 unit IVPUSH PRN PRN #0 vial 04/17/17 Heparin - 5,000 unit IVPUSH PRN PRN #0 vial 04/17/17 Heparin Infusion - 500 ml IVPB TITR units 04/17/17 Hydralazine HCl [Apresoline -] 50 mg PO TID tablet 04/17/17 Lisinopril [Prinivil] 40 mg PO DAILY tablet 04/17/17 Ct of the head no Bleed PE: per resident's day ASSESSMENT AND PLAN: 36yo M with PMHx of morbid obesity presented to the ER with CLIFFORD and found to be in HTN emergency with blood pressure of 203/119. # NSTEMI- Patient is getting transferred to [facility]; positive troponin x 3. on heparin ggt. On aspirin; plavix, Nuclear stress test: moderate ischemia in inferolateral, lateral, and anterolateral fernández. Small anterior wall infarct. LVEF 32% with global hypokinesis. Echo- moderate concentric LVH; Lipid panel :Cholesterol 187,LDL 111,HDL 69 # HTN emergency- BP is better today .Increased hydralazine to 50mg TID, and lowered the dose of norvasc to 5mg daily since having edema of lower extremities. # NSVT- no recurrent episodes. on the case. s/p stress test going for Cath. to [facility]. Continue current meds. # Acute Headache: Ct negative for bleed, improved # Proptosis; possible normal variant - no symptoms of hyperthyroidism. TSH WNL. can be repeated # ALEXYS- high suspicion of ALEXYS in setting of significant pauses on monitor during sleep. polysomography as an outpatient; discussed with the patient. # Morbid obesity- BMI 41. diet and lifestyle changes. should consider bariatric workup after cardiac issues optimized DVT ppx-hep ggt
[2017-04-17 19:03] VITALS: BP 158/81; PULSE 91; TEMP 98
== END 2017-04-17 19:35 | disposition short-term general hospital (02) | DRG 190 ==
LOC: JER 11:26 → JERBED 15:56 → J4W 19:02
PROVIDERS: ADMIT Internal Medicine; ATTEND Internal Medicine
DX: I21.4 Non-ST elevation (NSTEMI) myocardial infarction (principal); H05.20 Unspecified exophthalmos; E66.01 Morbid (severe) obesity due to excess calories; L03.116 Cellulitis of left lower limb; I16.0 Hypertensive urgency; B35.3 Tinea pedis; R00.1 Bradycardia, unspecified; I47.1 Supraventricular tachycardia; Z68.41 Body mass index [BMI] 40.0-44.9, adult; G47.33 Obstructive sleep apnea (adult) (pediatric); R51 Headache
CPT/HCPCS: 36415; 36600; 70450-TC; 71020-TC; 71275-TC; 78452-TC; 80048; 80053; 80061; 80076; 80307; 82550; 82553; 82803; 83036; 83721; 83735; 83880; 84100; 84439; 84443; 84481; 84484; 85025; 85027; 85730; 93005; 93010; 93017; 93306-TC; 99285-25; A9502; J1644

== ENCOUNTER 2018-06-10 11:31 | Inpatient (IN) | payer SELFPAY ==
[2018-06-10 11:39] VITALS: BMI 36.4
[2018-06-10] MEDS ORDERED: amLODIPine BESYLATE 5 MG TABLET (FP) PO ONE (11:49)
[2018-06-10] MEDS ORDERED: hydrALAZINE HCL 50 MG TABLET (FP) PO ONE (11:49)
[2018-06-10] MEDS ORDERED: amLODIPine BESYLATE 10 MG TABLET (FP) PO ONE (12:01)
[2018-06-10] MEDS ORDERED: NIFEdipine 10 MG CAPSULE (FP) PO ONE (12:02)
[2018-06-10] MEDS ORDERED: LABETALOL HCL 100 MG TABLET (FP) PO ONE (12:02)
[2018-06-10] MEDS ORDERED: LABETALOL HCL 100 MG TABLET (FP) ONE (12:04)
[2018-06-10] MEDS ORDERED: amLODIPine BESYLATE 5 MG TABLET (FP) ONE (12:04)
[2018-06-10] MEDS ORDERED: NIFEdipine 10 MG CAPSULE (FP) ONE (12:05)
[2018-06-10 12:16] LABS: EOS % 2.5 % (0-4.5); HEMATOCRIT 46.8 % (35.4-49); HEMOGLOBIN 15.9 GM/dL (11.7-16.9); LYMPH % 28.9 % (8-40); MCH 30.5 pg (25.7-33.7); MEAN CELL VOLUME 89.8 fl (80-96); MEAN PLT VOLUME 8.2 fl (7.5-11.1); MONO % 8.1 % (3.8-10.2); NEUT % 59.5 % (42.8-82.8); PLATELET COUNT 292 K/MM3 (134-434); RBC 5.21 M/mm3 (4.00-5.60); RDW 13.1 % (11.9-15.9)
--- NOTE | 2018-06-10 12:19 | PDOC ---
Attending Attestation - Resident Resident Name: Golden King - ED Attending Attestation I have performed the following: I have examined & evaluated the patient, The case was reviewed & discussed with the resident, I agree w/resident's findings & plan, Exceptions are as noted - HPI HPI: 06/10/18 12:15 37 yo male h/o htn on norvasc 10 and nifedipine 60, labetalol 100 BID, and hasn' t taken meds in 2 months because ran out. here today c/o headache and vision changes while driving. has since resolved. no weakness. no n/v no trauma. no speech changes. no mod factors. has since spontaneously resolved. - Physicial Exam PE: 06/10/18 12:17 awake alert lungs clear bilaterally heart rrr no mrg abd soft nt nd. skin warm and dry. nuero VF intact. CN intact, 5/5 all four ext. - Medical Decision Making 06/10/18 12:18 differential sxs of htn, hypertensive emergency, hypertensive urgency, plan ct head r/o end organ damage, labs ekg. will give home bp meds.
[2018-06-10 12:26] LABS: INR 1.12 (0.83-1.09); PROTHROMBIN TIME (PATIENT) 12.7 SEC (9.7-13.0)
[2018-06-10 12:35] LABS: ANION GAP 8 MMOL/L (8-16); BILIRUBIN,TOTAL 1.7 mg/dL (0.2-1.0); BLOOD UREA NITROGEN 15 mg/dL (7-18); CALCIUM 8.8 mg/dL (8.5-10.1); CHLORIDE 107 mmol/L (98-107); CO2 28 mmol/L (21-32); CREATININE 0.9 mg/dL (0.7-1.3); GLUCOSE,RANDOM 111 mg/dL (74-106); SGPT/ALT 40 U/L (13-61); SODIUM 143 mmol/L (136-145); TOT PROT 7.5 g/dl (6.4-8.2)
--- NOTE | 2018-06-10 12:37 | PDOC ---
History of Present Illness - General Chief Complaint: Blood Pressure Problem Stated Complaint: BLOOD PRESSURE PROBLEM Time Seen by Provider: 06/10/18 11:38 History Source: Patient Exam Limitations: No Limitations - History of Present Illness Initial Comments: 06/10/18 12:28 The patient is a 37M with a PMH of HTN, HLD, and NSTEMI who presents to the ER with complaints of headache and vision changes. The patient states that he stopped taking his BP medications 1-2 months ago. Yesterday, he developed a headache which was diffuse and nonradiating. He did not take anything for it. This morning, he woke up and had a mild headache but felt a vision change on his way to work. He states that he felt that the lights were extremely bright. He denies any current symptoms except for a throbbing headache. He denies fever , chills, nausea, vomiting, CP, SOB. Past History - Past Medical History Allergies/Adverse Reactions: Allergies Allergy/AdvReac Type Severity Reaction Status Date / Time No Known Allergies Allergy Verified 06/10/18 11:38 Home Medications: Ambulatory Orders Amlodipine Besylate [Norvasc -] 10 mg PO DAILY 06/10/18 Aspirin [Aspirin EC] 81 mg PO DAILY 06/10/18 Atorvastatin Ca [Lipitor] 80 mg PO HS 06/10/18 Furosemide [Lasix] 40 mg PO DAILY 06/10/18 Labetalol HCl [Normodyne -] 100 mg PO BID 06/10/18 Lisinopril [Prinivil -] 40 mg PO DAILY 06/10/18 Nifedipine [Nifedipine ER] 60 mg PO DAILY 06/10/18 COPD: No HTN: Yes - Surgical History Cardiac Surgery: Yes (cardiac cath) - Suicide/Smoking/Psychosocial Hx Smoking History: Never smoked Have you smoked in the past 12 months: No Information on smoking cessation initiated: No Hx Alcohol Use: No Drug/Substance Use Hx: No Substance Use Type: None Review of Systems - Review of Systems Able to Perform ROS?: Yes Comments:: 06/10/18 12:37 GENERAL/CONSTITUTIONAL: No fever or chills. No weakness. HEAD, EYES, EARS, NOSE AND THROAT: Positive for change in vision. No ear pain or discharge. No sore throat. CARDIOVASCULAR: No chest pain, palpitations, or lightheadedness. RESPIRATORY: No cough, wheezing, shortness of breath, or hemoptysis. GASTROINTESTINAL: No nausea, vomiting, diarrhea, constipation, or abdominal pain. GENITOURINARY: No dysuria, frequency, hematuria, or change in urination. MUSCULOSKELETAL: No joint or muscle swelling or pain. No neck or back pain. SKIN: No rash or lesions. NEUROLOGIC: Positive for headache. No numbness, tingling, focal weakness, loss of consciousness, or change in strength/sensation. ENDOCRINE: No increased thirst. No abnormal weight change. HEMATOLOGIC/LYMPHATIC: No anemia, easy bleeding, or history of blood clots. ALLERGIC/IMMUNOLOGIC: No hives or skin allergy. Is the patient limited Serbian proficient: No *Physical Exam - Vital Signs Last Vital Signs Temp Pulse Resp BP Pulse Ox 98.3 F 79 18 167/118 100 06/10/18 11:35 06/10/18 11:35 06/10/18 11:35 06/10/18 11:35 06/10/18 11:35 - Physical Exam Comments: 06/10/18 12:38 GENERAL: Well developed, well nourished. Awake and alert. No acute distress. HEENT: Normocephalic, atraumatic. Hearing grossly normal. Moist mucous membranes. PERRLA, EOMI. No conjunctival pallor. Sclera are non-icteric. NECK: Supple. Full ROM. CARDIOVASCULAR: Regular rate and rhythm. No murmurs, rubs, or gallops. PULMONARY: No evidence of respiratory distress. Lungs clear to auscultation bilaterally. No wheezing, rales or rhonchi. ABDOMINAL: Soft. Non-tender. Non-distended. No rebound or guarding. GENITOURINARY: No CVA tenderness bilaterally. MUSCULOSKELETAL: Normal range of motion at all joints. No bony deformities or tenderness. EXTREMITIES: No cyanosis. No clubbing. No edema. No calf tenderness or swelling. SKIN: Warm and dry. Normal capillary refill. No rashes. No jaundice. NEUROLOGICAL: Alert, awake, appropriate. Cranial nerves 2-12 intact. No deficits to light touch and temperature in face, upper extremities and lower extremities. 5/5 strength in deltoids, biceps, triceps, quadriceps, hamstrings, and gastrocnemius. Normal speech. Gait is normal without ataxia. PSYCHIATRIC: Cooperative. Good eye contact. Appropriate mood and affect. Heart Score/ECG Review #1 ECG reviewed & interpreted by me at: 12:44 General ECG Interpretation: Sinus Rhythm, Normal Rate, Normal Intervals, No acute ischemic changes Compared to previous ECG there are: No significant change 06/10/18 12:45 NSR vent rate 65 TN 186 QRS 114 QTc 410 Incomplete RBBB Unchanged from previous No STD or YUMIKO ED Treatment Course - LABORATORY CBC & Chemistry Diagram: 06/10/18 12:10 06/10/18 12:10 - ADDITIONAL ORDERS Additional order review: 06/10/18 12:10 RBC 5.21 MCV 89.8 MCHC 34.0 RDW 13.1 MPV 8.2 D Neutrophils % 59.5 Lymphocytes % 28.9 D Monocytes % 8.1 Eosinophils % 2.5 D Basophils % 1.0 - RADIOLOGY Radiology Studies Ordered: Category Date Time Status HEAD CT WITHOUT CONTRAST [CT] Stat CT Scan 06/10/18 12:17 Ordered CHEST X-RAY PORTABLE* [RAD] Stat Radiology 06/10/18 11:49 Ordered - Medications Given in the ED: ED Medications Discontinued Medications Generic Name Dose Route Start Last Admin Trade Name Freq PRN Reason Stop Dose Admin Amlodipine Besylate 5 mg 06/10/18 11:49 06/10/18 12:21 Norvasc - PO 06/10/18 11:50 Not Given ONCE ONE Amlodipine Besylate 10 mg 06/10/18 12:01 06/10/18 12:05 Norvasc - PO 06/10/18 12:02 10 mg ONCE ONE Administration Hydralazine HCl 50 mg 06/10/18 11:49 06/10/18 12:21 Apresoline - PO 06/10/18 11:50 Not Given ONCE ONE Labetalol HCl 100 mg 06/10/18 12:02 06/10/18 12:05 Normodyne - PO 06/10/18 12:03 100 mg ONCE ONE Administration Nifedipine 10 mg 06/10/18 12:02 06/10/18 12:05 Procardia Capsule - PO 06/10/18 12:03 10 mg ONCE ONE Administration Medical Decision Making - Medical Decision Making 06/10/18 12:45 The patient is a 37M with a PMH of HTN, HLD, and NSTEMI who presents to the ER with complaints of headache and changes in vision. Concern for NSTEMI, HTNsive crisis, ACS, intracranial hemorrhage. Normal neuro exam, so lower likelihood of ICH. Pending labs and imaging. 06/10/18 12:48 Trop of 0.16. Holding off on ASA as there is concern for ICH. Pending CT. 06/10/18 14:24 CTH negative. Will give ASA. Dr. Naik, cards, paged for consultation. 06/10/18 15:33 Dr. Naik said she does not see pt's at [facility]. Dr. Altman paged x 3, pending call back. I have endorsed the patient to Dr. Greer for admission. I have discussed the patient with Dr. Nunez who agrees to trend trops, admit for obs, and control BP. *DC/Admit/Observation/Transfer Diagnosis at time of Disposition: NSTEMI (non-ST elevated myocardial infarction) - Discharge Dispostion Condition at time of disposition: Guarded Decision to Admit order: Yes - Referrals - Patient Instructions - Post Discharge Activity
[2018-06-10 12:38] LABS: ALK PHOS 83 U/L (45-117); N-TERMINAL BNP 73.28 pg/ml (5-125)
[2018-06-10 12:44] LABS: MAGNESIUM 2.3 mg/dL (1.8-2.4); POTASSIUM 4.2 mmol/L (3.5-5.1); SGOT/AST 35 U/L (15-37)
[2018-06-10] MEDS ORDERED: NITROGLYCERIN SUBLINGUAL 1/150 0.4 MG TAB SL ONE (13:42)
[2018-06-10] MEDS ORDERED: ASPIRIN COATED 81 MG TABLET.EC PO ONE (14:18)
[2018-06-10] MEDS ORDERED: ASPIRIN 325 MG TABLET ONE (15:04)
[2018-06-10] MEDS ORDERED: NITROGLYCERIN SUBLINGUAL 1/150 0.4 MG TAB ONE (15:05)
--- NOTE | 2018-06-10 15:36 | EKG ---
Test Reason : Blood Pressure : / mmHG Vent. Rate : 064 BPM Atrial Rate : 064 BPM P-R Int : 186 ms QRS Dur : 114 ms QT Int : 398 ms P-R-T Axes : 052 019 038 degrees QTc Int : 410 ms NORMAL SINUS RHYTHM POSSIBLE LEFT ATRIAL ENLARGEMENT INCOMPLETE RIGHT BUNDLE BRANCH BLOCK BORDERLINE ECG WHEN COMPARED WITH ECG OF 17-APR-2017 08:21, QRS AXIS SHIFTED RIGHT NONSPECIFIC T WAVE ABNORMALITY NO LONGER EVIDENT IN LATERAL LEADS QT HAS SHORTENED Confirmed by MEETA HERNANDEZ MD ([id number]) on 06/10/2018 3:36:21 PM Referred By: Confirmed By:MEETA HERNANDEZ MD
--- NOTE | 2018-06-10 16:54 | PN ---
Teaching Attending Note Name of Resident: Jose Manuel Willard ATTENDING PHYSICIAN STATEMENT I saw and evaluated the patient. I reviewed the resident's note and discussed the case with the resident. I agree with the resident's findings and plan as documented with exceptions below. SUBJECTIVE: 37 yom with pMhx of Long standing uncontrolled HTN, Obesity, ALEXYS (reportedly not approved for CPAP), admitted to [facility] in 03/2017 for HTN emergency/CHF/NSTEMI , with abnormal stress test, transferred to [facility] for cardiac cath, reportedly non concerning with no stent placements, has not been taking any of his medications for last 2 months reportedly due to insurance reasons. Has not been checking his BP at home. This AM woke up with generalized throbbing headache around 8 AM, went to work. Has persistent headache with some blurry vision and felt light was bothering him. The blurry vision and light symptoms resolved in 15 minutes, and headache improved but was persistent so came to ED. In ED was noted with BP 170s/120s, s/p meds after which his headache fully resolved. Has been asymptomatic since. His current BP is 140s-80s. Denies every having any chest pain, shortness of breath, arm or jaw pain, dizziness or exertional symptoms. 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 Currently asymptomatic. Has lost about 35 lbs since last admission, snores at night but improved from before 12 point ROS done, neg except above. OBJECTIVE: Vital Signs Period Temp Pulse Resp BP Sys/Velasquez Pulse Ox Last 24 Hr 98.0 F-98.3 F 60-79 18-20 143-182/89-119 98-100 Intake & Output 06/07/18 06/08/18 06/09/18 06/10/18 23:59 23:59 23:59 23:59 Weight 219 lb GENERAL: Awake, alert, and fully oriented, in no acute distress, looks well built and nourished, ambulating in the room. HEAD: Normal with no signs of trauma. EYES: Pupils equal, round and reactive to light, extraocular movements intact, sclera anicteric, conjunctiva clear. No lid lag, mild pro-optosis, chronic per patient and charts. EARS, NOSE, THROAT: Ears normal, nares patent, oropharynx clear without exudates. Moist mucous membranes. NECK: Normal range of motion, supple without lymphadenopathy, JVD, or masses. LUNGS: Breath sounds equal, clear to auscultation bilaterally. No wheezes, and no crackles. No accessory muscle use. HEART: S1S2 regular, HR 50s ABDOMEN: Soft, nontender, obese, normoactive bowel sounds, no guarding, no rebound, no masses. No hepatomegaly or splenomegaly appreciated. MUSCULOSKELETAL: Normal range of motion at all joints. No bony deformities or tenderness. No CVA tenderness. UPPER EXTREMITIES: 2+ pulses, warm, well-perfused. No cyanosis. No clubbing. No peripheral edema. LOWER EXTREMITIES: 2+ pulses, warm, well-perfused. No calf tenderness. No peripheral edema. NEUROLOGICAL: Cranial nerves II-XII intact. Normal speech. Normal gait. facial symmetry, PERRL, EOMI, tongue mildline, sensation symmetric gross bilaterally, power 5/5, toes down going, neck soft supple, neg meningeal signs, no photophobia on exam, non focal exam PSYCHIATRIC: Cooperative. Good eye contact. Appropriate mood and affect. SKIN: Warm, dry, normal turgor, no rashes or lesions noted, normal capillary refill. Home Medications Medication Instructions Recorded Amlodipine Besylate [Norvasc -] 10 mg PO DAILY 06/10/18 Aspirin [Aspirin EC] 81 mg PO DAILY 06/10/18 Atorvastatin Ca [Lipitor] 80 mg PO HS 06/10/18 Furosemide [Lasix] 40 mg PO DAILY 06/10/18 Labetalol HCl [Normodyne -] 100 mg PO BID 06/10/18 Lisinopril [Prinivil -] 40 mg PO DAILY 06/10/18 Nifedipine [Nifedipine ER] 60 mg PO DAILY 06/10/18 Active Medications Amlodipine Besylate (Norvasc -) 10 mg PO DAILY [facility] Aspirin (Ecotrin -) 81 mg PO DAILY [facility] Atorvastatin Calcium (Lipitor -) 80 mg PO HS [facility] Heparin Sodium (Porcine) (Heparin -) 5,000 unit SQ TID [facility] Hydralazine HCl (Apresoline Injection -) 10 mg IVPUSH Q6H PRN PRN Reason: HYPERTENSION Labetalol HCl (Normodyne -) 100 mg PO BID [facility] Non-Formulary Medication (Lisinopril [Prinivil -]) 40 mg PO DAILY [facility] Non-Formulary Medication (Nifedipine [Nifedipine Er]) 60 mg PO DAILY [facility] Laboratory Results - last 24 hr 06/10/18 06/10/18 06/10/18 12:10 12:10 12:10 WBC 5.0 RBC 5.21 Hgb 15.9 Hct 46.8 MCV 89.8 MCH 30.5 MCHC 34.0 RDW 13.1 Plt Count 292 MPV 8.2 D Absolute Neuts (auto) 3.0 Neutrophils % 59.5 Lymphocytes % 28.9 D Monocytes % 8.1 Eosinophils % 2.5 D Basophils % 1.0 Nucleated RBC % 0 PT with INR 12.70 INR 1.12 H Sodium 143 Potassium 4.2 Chloride 107 Carbon Dioxide 28 Anion Gap 8 BUN 15 Creatinine 0.9 Creat Clearance w eGFR > 60 Random Glucose 111 H D Calcium 8.8 Magnesium 2.3 Total Bilirubin 1.7 H AST 35 ALT 40 Alkaline Phosphatase 83 Creatine Kinase 581 H Creatine Kinase Index 0.8 CK-MB (CK-2) 4.72 H Troponin I 0.16 H D B-Natriuretic Peptide 73.28 Total Protein 7.[address] brain - neg for acute process CXR large heart, no acute process EKG 1 sinus dev, LVH, RBBB (Old), Peaked T waves in V4-V5 EKG 2 peaked T waves in V3, unchanged as well EKGs reviewed in detail with Dr. Altman ASSESSMENT AND PLAN: 37 yom admitted with HTN emergency now improved, NSTEMI in the setting of non compliance -HTN emergency, improved BP with ED management -NSTEMI, demand induced from above, r/o acute ischemia -CLIFFORD/visual changes, resolved with BP control, making SAH unlikely -Obesity -ALEXYS, not on CPAP Plan: BP improved. Resume home meds including labetalol/nifedipine/lisinopril/ Amlodipine. Baseline HR in 50s. Hydralazine prn for SBP > 170 Neuro checks. Cardioogy consult Dr. Altman. Telemetry, trend trop. EKGs reviewed with Dr. Altman, ASA 325 mg for now, trend trop, further plan based on clinical course and cardiac biomarkers. Check 2D echo. Continue lipitor, check lipid panel. Counseled on CPAP compliance, 18 cm H20 HS as recommended on sleep study in 2016. Encourage to continue with exercise and weight loss. Social work consult for medications and CPAP assistance on d/c DVTPPX lovenox if stay expected > 24-48 hours. Dispo admit to inpatient telemetry. Plan discussed with patient in detail, all questions answered. patient relays full understanding and agreable with the plan. Total admit time 65 min.
[2018-06-10] MEDS ORDERED: LABETALOL HCL 5 MG/1 ML (100MG/20 ML VIAL) IVPUSH PRN (16:59)
[2018-06-10] MEDS ORDERED: hydrALAZINE HCL 20 MG/ML VIAL IVPUSH PRN ×2 (17:12→17:25)
--- NOTE | 2018-06-10 17:45 | HP ---
CHIEF COMPLAINT: Headache PCP: HISTORY OF PRESENT ILLNESS: 37 yo male wit PMH HTN, past NSTEMI with PCI (no stents), admitted from the ED with complaint of headache, blurry vision, and high blood pressure. He says that he woke up this morning with a mild headache which worsened right after he got to work. He says at that time he started to have some blurry vision and the headache was worsening so he came to the ED. He was prescribed multiple blood pressure medications in January but unable to pick them up due to a lack of insurance. He denies any chest pain, SOB, abdominal pain, n/v/d. ER course was notable for: (1) B.P. 182/119, Labetalol, Norvasc, Nifedipine, Nitroglycerin (2) ECG similar to past ECGs with addition of possible peaking of T waves (3) Headache and blurry vision resolved Recent Travel: none PAST MEDICAL HISTORY: HTN STEMI requiring Heparin Drip and PCI (no stents) PAST SURGICAL HISTORY: PCI Social History: Smoking: Denies Alcohol: Denies Drugs: Denies Family History: Allergies No Known Allergies Allergy (Verified 06/10/18 11:38) HOME MEDICATIONS: Home Medications Medication Instructions Recorded Amlodipine Besylate [Norvasc -] 10 mg PO DAILY 06/10/18 Aspirin [Aspirin EC] 81 mg PO DAILY 06/10/18 Atorvastatin Ca [Lipitor] 80 mg PO HS 06/10/18 Furosemide [Lasix] 40 mg PO DAILY 06/10/18 Labetalol HCl [Normodyne -] 100 mg PO BID 06/10/18 Lisinopril [Prinivil -] 40 mg PO DAILY 06/10/18 Nifedipine [Nifedipine ER] 60 mg PO DAILY 06/10/18 REVIEW OF SYSTEMS CONSTITUTIONAL: Absent: fever, chills, diaphoresis, generalized weakness, malaise, loss of appetite, weight change HEENT: visual changes Absent: rhinorrhea, nasal congestion, throat pain, throat swelling, difficulty swallowing, mouth swelling, ear pain, eye pain, CARDIOVASCULAR: Absent: chest pain, syncope, palpitations, irregular heart rate, lightheadedness , peripheral edema RESPIRATORY: Absent: cough, shortness of breath, dyspnea with exertion, orthopnea, wheezing, stridor, hemoptysis GASTROINTESTINAL: Absent: abdominal pain, abdominal distension, nausea, vomiting, diarrhea, constipation, melena, hematochezia GENITOURINARY: Absent: dysuria, frequency, urgency, hesitancy, hematuria, flank pain, genital pain MUSCULOSKELETAL: Absent: myalgia, arthralgia, joint swelling, back pain, neck pain SKIN: Absent: rash, itching, pallor HEMATOLOGIC/IMMUNOLOGIC: Absent: easy bleeding, easy bruising, lymphadenopathy, frequent infections ENDOCRINE: Absent: unexplained weight gain, unexplained weight loss, heat intolerance, cold intolerance NEUROLOGIC: headache Absent: , focal weakness or paresthesias, dizziness, unsteady gait, seizure, mental status changes, bladder or bowel incontinence PSYCHIATRIC: Absent: anxiety, depression, suicidal or homicidal ideation, hallucinations. PHYSICAL EXAMINATION Vital Signs - 24 hr 06/10/18 06/10/18 06/10/18 11:35 13:20 15:02 Temperature 98.3 F Pulse Rate 79 Pulse Rate [ Apical] Respiratory 18 Rate Blood Pressure 167/118 Blood Pressure 182/119 166/106 [Right Arm] O2 Sat by Pulse 100 Oximetry (%) 06/10/18 06/10/18 16:10 16:25 Temperature 98.0 F Pulse Rate Pulse Rate [ 60 Apical] Respiratory 20 Rate Blood Pressure Blood Pressure 152/89 143/93 [Right Arm] O2 Sat by Pulse 98 Oximetry (%) GENERAL: A&O, no acute distress HEAD: Normocephalic, atraumatic. EYES: PERRL, no scleral icterus EARS, NOSE, THROAT: oropharynx clear without exudates. Moist mucous membranes. NECK: supple without lymphadenopathy LUNGS: CTA b/l, no crackles or wheezes HEART: Regular rate and rhythm, normal S1 and S2 without murmur ABDOMEN: Soft, obese abdomen, nontender to palpation, normoactive bowel sounds MUSCULOSKELETAL: No bony deformities or tenderness. EXTREMITIES: 2+ pulses, warm, well-perfused. No peripheral edema. NEUROLOGICAL: Cranial nerves II-XII grossly intact. Normal speech. PSYCHIATRIC: Cooperative. Good eye contact. Appropriate mood and affect. SKIN: Warm, dry, no rashes or lesions noted Laboratory Results - last 24 hr 06/10/18 06/10/18 06/10/18 12:10 12:10 12:10 WBC 5.0 RBC 5.21 Hgb 15.9 Hct 46.8 MCV 89.8 MCH 30.5 MCHC 34.0 RDW 13.1 Plt Count 292 MPV 8.2 D Absolute Neuts (auto) 3.0 Neutrophils % 59.5 Lymphocytes % 28.9 D Monocytes % 8.1 Eosinophils % 2.5 D Basophils % 1.0 Nucleated RBC % 0 PT with INR 12.70 INR 1.12 H Sodium 143 Potassium 4.2 Chloride 107 Carbon Dioxide 28 Anion Gap 8 BUN 15 Creatinine 0.9 Creat Clearance w eGFR > 60 Random Glucose 111 H D Calcium 8.8 Magnesium 2.3 Total Bilirubin 1.7 H AST 35 ALT 40 Alkaline Phosphatase 83 Creatine Kinase 581 H Creatine Kinase Index 0.8 CK-MB (CK-2) 4.72 H Troponin I 0.16 H D B-Natriuretic Peptide 73.28 Total Protein 7.5 Albumin 4.0 ASSESSMENT/PLAN: 37 yo male wit PMH HTN, past NSTEMI with PCI (no stents) admitted for headache, blurry vision, and high blood pressure. Hypetensive Emergency - improved -Pt with headache and vision changes on arrival to ED, improved with home meds given in ED -Troponin noted 0.16, CK 581 -ECG with no changes from previous other than possible T wave peaking -Pt unable to pickup prescribed home meds due to lack of insurance, restarted here Nifedipine 60 mg PO Daily Lisinopril 40 mg PO Daily Labetalol 100 mg PO BID Norvasc 10 mg PO Daily Home Lasix 40 mg PO Daily held for now as pt with no signs of fluid overload -Cardiology Consulted - does not recommend heparin drip at this time, will reevaluate pending next troponin / if ECG changes -Repeat Troponin until downtrending -Repeat ECG with Troponin -Telemetry HLD -Lipitor 80 mg PO HS -ASA DVT Prophylaxis -Lovenox 40 mg SQ Daily FEN -Fluids: none -Electrolytes: No electrolyte abnormalities, BMP in AM -Nutrition: Sodium controlled diet Disposition Telemetry Visit type - Emergency Visit Emergency Visit: Yes ED Registration Date: 06/10/18 Care time: The patient presented to the Emergency Department on the above date and was hospitalized for further evaluation of their emergent condition. - New Patient This patient is new to me today: Yes Date on this admission: 06/10/18 - Critical Care Critical Care patient: No Hospitalist Screening - Colonoscopy Questionnaire Colonoscopy Questionnaire: Colonoscopy Questionnaire - Patient: 50 - 75 years old and never had a screening colonoscopy: No History of colon or rectal polyps, or CA: No History of IBD, Crohn's disease or UC: No History of abdominal radiation therapy as a child: No - Relative: 1 with colon or rectal CA, or polyps at age 60 or younger: No Colon or rectal CA diagnosed at age 45 or younger: No Multiple relatives with colon or rectal CA: No - Outcome: Screening Result: Negative Screen
[2018-06-10] MEDS ORDERED: LISINOPRIL 20 MG TABLET (FP) ONE (19:03)
[2018-06-10] MEDS: LISINOPRIL 20 MG TABLET (FP) PO SCH (19:06)
[2018-06-10] MEDS ORDERED: HEPARIN NA (PORCINE) 5,000 UNITS/ML 1ML VIAL SQ SCH (22:00)
[2018-06-10] MEDS ORDERED: LABETALOL HCL 100 MG TABLET (FP) PO SCH (22:00)
[2018-06-10] MEDS ORDERED: ATORVASTATIN CA 80 MG TABLET (FP) PO SCH (22:00)
[2018-06-10] MEDS: LABETALOL HCL 100 MG TABLET (FP) PO SCH (22:27)
[2018-06-11 06:55] LABS: BASO % 0.9 % (0-2.0); EOS % 5.1 % (0-4.5); HEMATOCRIT 47.1 % (35.4-49); HEMOGLOBIN 15.8 GM/dL (11.7-16.9); LYMPH % 30.9 % (8-40); MCH 30.2 pg (25.7-33.7); MCHC 33.4 g/dl (32.0-35.9); MEAN CELL VOLUME 90.4 fl (80-96); MEAN PLT VOLUME 8.5 fl (7.5-11.1); MONO % 9.5 % (3.8-10.2); NEUT % 53.6 % (42.8-82.8); PLATELET COUNT 260 K/MM3 (134-434); RBC 5.22 M/mm3 (4.00-5.60); WHITE BLOOD COUNT 4.6 K/mm3 (4.0-10.0)
[2018-06-11 07:32] LABS: ALBUMIN 3.7 g/dl (3.4-5.0); ANION GAP 10 MMOL/L (8-16); BLOOD UREA NITROGEN 14 mg/dL (7-18); CALCIUM 8.7 mg/dL (8.5-10.1); CHLORIDE 105 mmol/L (98-107); CO2 28 mmol/L (21-32); GLUCOSE,RANDOM 83 mg/dL (74-106); MAGNESIUM 2.4 mg/dL (1.8-2.4); POTASSIUM 3.6 mmol/L (3.5-5.1); SODIUM 143 mmol/L (136-145)
[2018-06-11 07:36] LABS: ALK PHOS 76 U/L (45-117); CREATININE 0.9 mg/dL (0.55-1.3); PHOSPHOROUS 3.9 mg/dL (2.5-4.9); SGOT/AST 17 U/L (15-37); SGPT/ALT 34 U/L (13-61); TOT PROT 6.8 g/dl (6.4-8.2)
[2018-06-11 07:43] LABS: CHOLESTEROL 161 mg/dL (50-200); HDL CHOLESTEROL 59 mg/dL (40-60); TRIGLYCERIDES 98 mg/dL (35-160)
[2018-06-11 07:52] LABS: INR 1.14 (0.83-1.09); PROTHROMBIN TIME (PATIENT) 12.9 SEC (9.7-13.0)
--- NOTE | 2018-06-11 09:13 | EKG ---
Test Reason : Blood Pressure : / mmHG Vent. Rate : 048 BPM Atrial Rate : 048 BPM P-R Int : 196 ms QRS Dur : 116 ms QT Int : 458 ms P-R-T Axes : 053 088 031 degrees QTc Int : 409 ms SINUS BRADYCARDIA POSSIBLE LEFT ATRIAL ENLARGEMENT WHEN COMPARED WITH ECG OF 10-JUN-2018 19:31, NO SIGNIFICANT CHANGE WAS FOUND Confirmed by DESHAWN BOSTON MD ([id number]) on 06/11/2018 9:13:18 AM Referred By: Confirmed By:DESHAWN BOSTON MD
--- NOTE | 2018-06-11 09:16 | EKG ---
Test Reason : Blood Pressure : / mmHG Vent. Rate : 059 BPM Atrial Rate : 059 BPM P-R Int : 190 ms QRS Dur : 102 ms QT Int : 438 ms P-R-T Axes : 048 068 035 degrees QTc Int : 433 ms SINUS BRADYCARDIA POSSIBLE LEFT ATRIAL ENLARGEMENT INCOMPLETE RBBB WHEN COMPARED WITH ECG OF 10-JUN-2018 16:26, NO SIGNIFICANT CHANGE WAS FOUND Confirmed by DESHAWN BOSTON MD ([id number]) on 06/11/2018 9:16:21 AM Referred By: Confirmed By:DESHAWN BOSTON MD
--- NOTE | 2018-06-11 09:22 | EKG ---
Test Reason : Blood Pressure : / mmHG Vent. Rate : 055 BPM Atrial Rate : 055 BPM P-R Int : 186 ms QRS Dur : 112 ms QT Int : 426 ms P-R-T Axes : 050 014 032 degrees QTc Int : 407 ms SINUS BRADYCARDIA LEFT ATRIAL ENLARGEMENT INCOMPLETE RBBB WHEN COMPARED WITH ECG OF 10-JUN-2018 11:55, NO SIGNIFICANT CHANGE WAS FOUND Confirmed by DESHAWN BOSTON MD ([id number]) on 06/11/2018 9:21:34 AM Referred By: Confirmed By:DESHAWN BOSTON MD
[2018-06-11] MEDS ORDERED: NIFEdipine E.R 60 MG TABLET (UD) PO SCH (10:00)
[2018-06-11] MEDS ORDERED: amLODIPine BESYLATE 10 MG TABLET (FP) PO SCH (10:00)
[2018-06-11] MEDS ORDERED: ENOXAPARIN NA (PORCINE) 40 MG/0.4 ML DISP.SYRIN SQ SCH (10:00)
[2018-06-11] MEDS ORDERED: ASPIRIN COATED 81 MG TABLET.EC PO SCH (10:00)
--- NOTE | 2018-06-11 10:56 | ECHO ---
Name: ARCADIO CONRAD Exam:Adult Echocardiogram Study Date: 06/11/2018 09:24 AM Age: 37 yrs Reason For Study: htn,nstemi Height: 65 in Weight: 219 lb BSA: 2.1 m2 MMode/2D Measurements & Calculations IVSd: 1.2 cm Ao root diam: 4.0 cm LVIDd: 4.7 cm LA dimension: 3.8 cm LVIDs: 2.5 cm ACS: 2.5 cm LVPWd: 1.6 cm IVSs: 1.5 cm LVPWs: 1.6 cm EDV(Teich): 104.6 ml ESV(Teich): 21.4 ml Doppler Measurements & Calculations MV E max hussain: 67.6 cm/sec Ao V2 max: 133.6 cm/sec MV A max hussain: 66.4 cm/sec Ao max P.1 mmHg MV E/A: 1.0 Ao V2 mean: 87.1 cm/sec Ao mean P.5 mmHg Ao V2 VTI: 26.1 cm TR max hussain: 259.3 cm/sec PI end-d hussain: 146.6 cm/sec TR max P.0 mmHg Med Peak E' Hussain: 6.3 cm/sec Med E/e': 10.8 Lat Peak E' Hussain: 5.6 cm/sec Lat E/e': 12.1 Left Ventricle There is moderate concentric left ventricular hypertrophy. Left ventricular systolic function is norm al. Ejection Fraction = 55-60%. Right Ventricle The right ventricle is normal in size and function. Atria The left atrium is mildly dilated. Mitral Valve The mitral valve is normal in structure and function. There is no mitral valve stenosis. There is tra ce to mild mitral regurgitation. Tricuspid Valve The tricuspid valve is normal in structure and function. There is mild tricuspid regurgitation. Aortic Valve The aortic valve opens well. No hemodynamically significant valvular aortic stenosis. No aortic regur gitation is present. Pulmonic Valve The pulmonic valve is not well seen, but is grossly normal. There is no pulmonic valvular stenosis. M ild pulmonic valvular regurgitation. Great Vessels Mildly dilated ascending aorta. Pericardium/Pleura There is no pericardial effusion. Interpretation Summary There is moderate concentric left ventricular hypertrophy. Left ventricular systolic function is normal. Ejection Fraction = 55-60%. The right ventricle is normal in size and function. The left atrium is mildly dilated. There is trace to mild mitral regurgitation. There is mild tricuspid regurgitation. Mildly dilated ascending aorta. There is no pericardial effusion. MD Dashawn Smiley 06/11/2018 10:55 AM
[2018-06-11] MEDS: LABETALOL HCL 100 MG TABLET (FP) PO SCH (11:11)
[2018-06-11] MEDS: LISINOPRIL 20 MG TABLET (FP) PO SCH (11:11)
--- NOTE | 2018-06-11 11:24 | CON.CARD ---
Cardiology Consult (text) - Consultation Consultation Note: cc: headache hpi: 37 m hx htn, hld, nstemi 03/2017 (cath at [facility] then showed no blockages per pt, no pci done), here with headache. Past 2 mos pt has no medical insurance so stopped taking his meds. Had been feeling fine until yesterday when he noticed art and blurry vision so came to ER. No cp sob palps dizzy loc pnd orthopnea le edema. In er bp elevated, treated and his sxs resolved, feels well now. pmh: per hpi psh: cardiac cath social: no tob fam: no premature cad, scd ros: per hpi; no cough nvd fever gib hematuria dysuria muscle pain meds: none taken at home past 2 mos pe: Vital Signs Period Temp Pulse Resp BP Sys/Velasquez Pulse Ox Last 24 Hr 97.5 F-98.3 F 56-79 18-20 134-182/78-119 96-100 nad no jvd rrr s1s2 no mrg cta bl nl eff aaox3 no le e/c/c abd nt nd pos bs no jaundice diaphoresis pos dp pt no carotid bruits Laboratory Last Values WBC 4.6 K/mm3 (4.0-10.0) 06/11/18 05:45 RBC 5.22 M/mm3 (4.00-5.60) 06/11/18 05:45 Hgb 15.8 GM/dL (11.7-16.9) 06/11/18 05:45 Hct 47.1 % (35.4-49) 06/11/18 05:45 MCV 90.4 fl (80-96) 06/11/18 05:45 MCH 30.2 pg (25.7-33.7) 06/11/18 05:45 MCHC 33.4 g/dl (32.0-35.9) 06/11/18 05:45 RDW 13.0 % (11.9-15.9) 06/11/18 05:45 Plt Count 260 K/MM3 (134-434) 06/11/18 05:45 MPV 8.5 fl (7.5-11.1) 06/11/18 05:45 Absolute Neuts (auto) 2.5 K/mm3 (1.5-8.0) 06/11/18 05:45 Neutrophils % 53.6 % (42.8-82.8) 06/11/18 05:45 Lymphocytes % 30.9 % (8-40) 06/11/18 05:45 Monocytes % 9.5 % (3.8-10.2) 06/11/18 05:45 Eosinophils % 5.1 % (0-4.5) H D 06/11/18 05:45 Basophils % 0.9 % (0-2.0) 06/11/18 05:45 Nucleated RBC % 0 % (0-0) 06/11/18 05:45 PT with INR 12.90 SEC (9.7-13.0) 06/11/18 05:45 INR 1.14 (0.83-1.09) H 06/11/18 05:45 Sodium 143 mmol/L (136-145) 06/11/18 05:45 Potassium 3.6 mmol/L (3.5-5.1) 06/11/18 05:45 Chloride 105 mmol/L (98-107) 06/11/18 05:45 Carbon Dioxide 28 mmol/L (21-32) 06/11/18 05:45 Anion Gap 10 MMOL/L (8-16) 06/11/18 05:45 BUN 14 mg/dL (7-18) 06/11/18 05:45 Creatinine 0.9 mg/dL (0.55-1.3) 06/11/18 05:45 Creat Clearance w eGFR > 60 (>60) 06/11/18 05:45 Random Glucose 83 mg/dL (74-106) 06/11/18 05:45 Hemoglobin A1c % 5.1 % (4.2-6.3) 06/11/18 05:45 Calcium 8.7 mg/dL (8.5-10.1) 06/11/18 05:45 Phosphorus 3.9 mg/dL (2.5-4.9) 06/11/18 05:45 Magnesium 2.4 mg/dL (1.8-2.4) 06/11/18 05:45 Total Bilirubin 2.0 mg/dL (0.2-1.0) H 06/11/18 05:45 AST 17 U/L (15-37) 06/11/18 05:45 ALT 34 U/L (13-61) 06/11/18 05:45 Alkaline Phosphatase 76 U/L (45-117) 06/11/18 05:45 Creatine Kinase 457 IU/L (26-308) H 06/10/18 19:15 Creatine Kinase Index 0.7 % (0.0-5.0) 06/10/18 19:15 CK-MB (CK-2) 3.54 ng/mL (0.5-3.6) 06/10/18 19:15 Troponin I 0.17 ng/ml (0.00-0.05) H* 06/11/18 05:45 B-Natriuretic Peptide 73.28 pg/ml (5-125) 06/10/18 12:10 Total Protein 6.8 g/dl (6.4-8.2) 06/11/18 05:45 Albumin 3.7 g/dl (3.4-5.0) 06/11/18 05:45 Triglycerides 98 mg/dL (35-160) 06/11/18 05:45 Cholesterol 161 mg/dL (50-200) 06/11/18 05:45 Total LDL Cholesterol 96 mg/dL (5-100) 06/11/18 05:45 HDL Cholesterol 59 mg/dL (40-60) 06/11/18 05:45 tele: sr echo 05/2018: mod lvh, nl lvef, nl rv, mild tr, mild pr, mild lae, mild ao root dil ecg: sr,nl intervals, IRBBB,no sig change prior cxr: clear lungs a/p: 37 m hx htn, hld, nstemi 03/2017 (cath at [facility] then showed no blockages per pt, no pci done), here with headache. htn emergency: -symptoms relate to high bp -feeling better with bp controlled -cont current meds hld: -cont statin nstemi 03/2017: -cath 03/2017 showed no blockages per pt, no pci done, no anginal sxs, nl lvef -cont current cardiac meds, asa, statin pos trops: -borderline trop elevation with flat trend and nl ckmb index, not c/w acs cardiac hernandez stable for dc
--- NOTE | 2018-06-11 13:45 | PN ---
Teaching Attending Note Name of Resident: Jose Manuel Willard ATTENDING PHYSICIAN STATEMENT I saw and evaluated the patient. I reviewed the resident's note and discussed the case with the resident. I agree with the resident's findings and plan as documented with exceptions below. SUBJECTIVE: Patient seen and examined. no complaints. All symptoms resolved with no recurrence. Feels well. OBJECTIVE: Vital Signs Period Temp Pulse Resp BP Sys/Velasquez Pulse Ox Last 24 Hr 97.5 F-98.2 F 56-68 18-20 134-166/78-106 96-98 Intake & Output 06/08/18 06/09/18 06/10/18 06/11/18 23:59 23:59 23:59 23:59 Intake Total 370 0 Balance 370 0 Weight 219 lb General: ambulating in room in no acute distress Chest: CTAB, no rales or wheezing Abdomen:soft, Obese, NT Extremities: no edema Home Medications Medication Instructions Recorded Amlodipine Besylate [Norvasc -] 10 mg PO DAILY 06/10/18 Aspirin [Aspirin EC] 81 mg PO DAILY 06/10/18 Atorvastatin Ca [Lipitor] 80 mg PO HS 06/10/18 Furosemide [Lasix] 40 mg PO DAILY 06/10/18 Labetalol HCl [Normodyne -] 100 mg PO BID 06/10/18 Lisinopril [Prinivil -] 40 mg PO DAILY 06/10/18 Nifedipine [Nifedipine ER] 60 mg PO DAILY 06/10/18 Active Medications Amlodipine Besylate (Norvasc -) 10 mg PO DAILY [facility] Last Admin: 06/11/18 11:11 Dose: 10 mg Aspirin (Ecotrin -) 81 mg PO DAILY [facility] Last Admin: 06/11/18 11:11 Dose: 81 mg Atorvastatin Calcium (Lipitor -) 80 mg PO HS [facility] Last Admin: 06/10/18 22:26 Dose: 80 mg Enoxaparin Sodium (Lovenox -) 40 mg SQ DAILY [facility] Last Admin: 06/11/18 11:11 Dose: 40 mg Hydralazine HCl (Apresoline Injection -) 10 mg IVPUSH Q6H PRN PRN Reason: HYPERTENSION Labetalol HCl (Normodyne -) 100 mg PO BID [facility] Last Admin: 06/11/18 11:11 Dose: 100 mg Lisinopril (Prinivil) 40 mg PO DAILY [facility] Last Admin: 06/11/18 11:11 Dose: 40 mg Nifedipine (Procardia Xl -) 60 mg PO DAILY [facility] Last Admin: 06/11/18 11:11 Dose: 60 mg Laboratory Results - last 24 hr 06/10/18 06/10/18 06/10/18 19:15 19:15 19:30 WBC RBC Hgb Hct MCV MCH MCHC RDW Plt Count MPV Absolute Neuts (auto) Neutrophils % Lymphocytes % Monocytes % Eosinophils % Basophils % Nucleated RBC % PT with INR INR Sodium Potassium Chloride Carbon Dioxide Anion Gap BUN Creatinine Creat Clearance w eGFR Random Glucose Hemoglobin A1c % Calcium Phosphorus 3.5 Magnesium Total Bilirubin AST ALT Alkaline Phosphatase Creatine Kinase 457 H Creatine Kinase Index 0.7 CK-MB (CK-2) 3.54 Troponin I 0.16 H* Cancelled Total Protein Albumin Triglycerides Cholesterol Total LDL Cholesterol HDL Cholesterol 06/11/18 06/11/18 06/11/18 01:00 05:45 05:45 WBC 4.6 RBC 5.22 Hgb 15.8 Hct 47.1 MCV 90.4 MCH 30.2 MCHC 33.4 RDW 13.0 Plt Count 260 MPV 8.5 Absolute Neuts (auto) 2.5 Neutrophils % 53.6 Lymphocytes % 30.9 Monocytes % 9.5 Eosinophils % 5.1 H D Basophils % 0.9 Nucleated RBC % 0 PT with INR 12.90 INR 1.14 H Sodium Potassium Chloride Carbon Dioxide Anion Gap BUN Creatinine Creat Clearance w eGFR Random Glucose Hemoglobin A1c % Calcium Phosphorus Magnesium Total Bilirubin AST ALT Alkaline Phosphatase Creatine Kinase Creatine Kinase Index CK-MB (CK-2) Troponin I 0.16 H* Total Protein Albumin Triglycerides Cholesterol Total LDL Cholesterol HDL Cholesterol 06/11/18 06/11/18 06/11/18 05:45 05:45 05:45 WBC RBC Hgb Hct MCV MCH MCHC RDW Plt Count MPV Absolute Neuts (auto) Neutrophils % Lymphocytes % Monocytes % Eosinophils % Basophils % Nucleated RBC % PT with INR INR Sodium 143 Potassium 3.6 Chloride 105 Carbon Dioxide 28 Anion Gap 10 BUN 14 Creatinine 0.9 Creat Clearance w eGFR > 60 Random Glucose 83 Hemoglobin A1c % 5.1 Calcium 8.7 Phosphorus 3.9 Magnesium 2.4 Total Bilirubin 2.0 H AST 17 ALT 34 Alkaline Phosphatase 76 Creatine Kinase Creatine Kinase Index CK-MB (CK-2) Troponin I 0.17 H* Total Protein 6.8 Albumin 3.7 Triglycerides 98 Cholesterol 161 Total LDL Cholesterol 96 HDL Cholesterol 59 /14/18 06:00 WBC RBC Hgb Hct MCV MCH MCHC RDW Plt Count MPV Absolute Neuts (auto) Neutrophils % Lymphocytes % Monocytes % Eosinophils % Basophils % Nucleated RBC % PT with INR INR Sodium Potassium Chloride Carbon Dioxide Anion Gap BUN Creatinine Creat Clearance w eGFR Random Glucose Hemoglobin A1c % Calcium Phosphorus Magnesium Total Bilirubin AST ALT Alkaline Phosphatase Creatine Kinase Creatine Kinase Index CK-MB (CK-2) Troponin I Cancelled Total Protein Albumin Triglycerides Cholesterol Total LDL Cholesterol HDL Cholesterol 2d echo results reviewed ASSESSMENT AND PLAN: 37 yom admitted with HTN emergency now improved, NSTEMI in the setting of non compliance -HTN emergency, improved BP with ED management -NSTEMI, demand induced from above, r/o acute ischemia -CLIFFORD/visual changes, resolved with BP control, making SAH unlikely -Obesity -ALEXYS, not on CPAP Plan: BP improved, continue home meds including labetalol/nifedipine/lisinopril/ Amlodipine. Baseline HR in 50s. Cardiology input appreciated. Trop unchanged. 2D echo noted. Outpatient follow up. lipid panel noted. Could not tolerate CPAP at night, outpatient follow up. Social work input for medication assistance, patient working on the same. patient rapidly improved earlier than expected. BP stable overnight and no further elevation in trop. d/c home today with outpatient PCP, cardiology and pulmonary follow up. Plan discussed with patient in detail, all questions answered. patient relays full understanding and agreable with the plan.
[2018-06-11 14:11] VITALS: BP 129/71; PULSE 65; TEMP 98.3
--- NOTE | 2018-06-11 17:11 | DS ---
Physical Exam: SUBJECTIVE: Patient seen and examined this AM. He states that he does not have any complaints. His headache and blurred vision have completely resolved. He denies any chest pain or SOB. OBJECTIVE: Vital Signs Period Temp Pulse Resp BP Sys/Velasquez Pulse Ox Last 24 Hr 97.5 F-98.3 F 56-68 18-20 129-154/71-88 96-98 PHYSICAL EXAM GENERAL: A&O, no acute distress HEAD: Normocephalic, atraumatic. EYES: PERRL, no scleral icterus EARS, NOSE, THROAT: oropharynx clear without exudates. Moist mucous membranes. NECK: supple without lymphadenopathy LUNGS: CTA b/l, no crackles or wheezes HEART: Regular rate and rhythm, normal S1 and S2 without murmur ABDOMEN: Soft, obese abdomen, nontender to palpation, normoactive bowel sounds MUSCULOSKELETAL: No bony deformities or tenderness. EXTREMITIES: 2+ pulses, warm, well-perfused. No peripheral edema. NEUROLOGICAL: Cranial nerves II-XII grossly intact. Normal speech. PSYCHIATRIC: Cooperative. Good eye contact. Appropriate mood and affect. SKIN: Warm, dry, no rashes or lesions noted LABS Laboratory Results - last 24 hr 06/10/18 06/10/18 06/10/18 19:15 19:15 19:30 WBC RBC Hgb Hct MCV MCH MCHC RDW Plt Count MPV Absolute Neuts (auto) Neutrophils % Lymphocytes % Monocytes % Eosinophils % Basophils % Nucleated RBC % PT with INR INR Sodium Potassium Chloride Carbon Dioxide Anion Gap BUN Creatinine Creat Clearance w eGFR Random Glucose Hemoglobin A1c % Calcium Phosphorus 3.5 Magnesium Total Bilirubin AST ALT Alkaline Phosphatase Creatine Kinase 457 H Creatine Kinase Index 0.7 CK-MB (CK-2) 3.54 Troponin I 0.16 H* Cancelled Total Protein Albumin Triglycerides Cholesterol Total LDL Cholesterol HDL Cholesterol 06/11/18 06/11/18 06/11/18 01:00 05:45 05:45 WBC 4.6 RBC 5.22 Hgb 15.8 Hct 47.1 MCV 90.4 MCH 30.2 MCHC 33.4 RDW 13.0 Plt Count 260 MPV 8.5 Absolute Neuts (auto) 2.5 Neutrophils % 53.6 Lymphocytes % 30.9 Monocytes % 9.5 Eosinophils % 5.1 H D Basophils % 0.9 Nucleated RBC % 0 PT with INR 12.90 INR 1.14 H Sodium Potassium Chloride Carbon Dioxide Anion Gap BUN Creatinine Creat Clearance w eGFR Random Glucose Hemoglobin A1c % Calcium Phosphorus Magnesium Total Bilirubin AST ALT Alkaline Phosphatase Creatine Kinase Creatine Kinase Index CK-MB (CK-2) Troponin I 0.16 H* Total Protein Albumin Triglycerides Cholesterol Total LDL Cholesterol HDL Cholesterol 06/11/18 06/11/18 06/11/18 05:45 05:45 05:45 WBC RBC Hgb Hct MCV MCH MCHC RDW Plt Count MPV Absolute Neuts (auto) Neutrophils % Lymphocytes % Monocytes % Eosinophils % Basophils % Nucleated RBC % PT with INR INR Sodium 143 Potassium 3.6 Chloride 105 Carbon Dioxide 28 Anion Gap 10 BUN 14 Creatinine 0.9 Creat Clearance w eGFR > 60 Random Glucose 83 Hemoglobin A1c % 5.1 Calcium 8.7 Phosphorus 3.9 Magnesium 2.4 Total Bilirubin 2.0 H AST 17 ALT 34 Alkaline Phosphatase 76 Creatine Kinase Creatine Kinase Index CK-MB (CK-2) Troponin I 0.17 H* Total Protein 6.8 Albumin 3.7 Triglycerides 98 Cholesterol 161 Total LDL Cholesterol 96 HDL Cholesterol 59 06/11/18 06:00 WBC RBC Hgb Hct MCV MCH MCHC RDW Plt Count MPV Absolute Neuts (auto) Neutrophils % Lymphocytes % Monocytes % Eosinophils % Basophils % Nucleated RBC % PT with INR INR Sodium Potassium Chloride Carbon Dioxide Anion Gap BUN Creatinine Creat Clearance w eGFR Random Glucose Hemoglobin A1c % Calcium Phosphorus Magnesium Total Bilirubin AST ALT Alkaline Phosphatase Creatine Kinase Creatine Kinase Index CK-MB (CK-2) Troponin I Cancelled Total Protein Albumin Triglycerides Cholesterol Total LDL Cholesterol HDL Cholesterol IMAGING: CXR: large heart, no acute chest pathology Head CT: negative for acute bleed or fracture ECHO: Mild LVH, normal EF, otherwise nominal echo with some mild dilatation and regurgitation HOSPITAL COURSE: Date of Admission:06/10/18 Date of Discharge: 06/11/18 37 yo Male with PMH hypertension with previous NSTEMI (no stents) was admitted after complaint of a headache and blurred vision. He was found to be hypertensive in the 180s. Pt was considered to be in hypertensive emergency though started on his prescribed meds and blood pressure and all symptoms resolved in the ED. Pt has been prescribed numerous medications for blood pressure (labetalol, lisinopril, amlodipine, nifedipine) though unable to pick them up due to a lack of insurance, so pt has not taken any b.p meds in the last 2 months. He was restarted on his prescribed medications with complete resolution. Of note the pt had a troponin of 0.16 X 3. Cardiology was consulted and it was decided to not start heparin drip as troponin was likely due to HTN and there were no concerning ECG changes. Pt was prescribed home meds (as mentioned above) on discharge with discount coupons and the importance of taking the medications was stressed. It was recommended that the patient find a way to get insurance in order to have more comprehensive medical care. He was referred to the resident clinic as well as recommended to follow up with a charger tester. Pt was deemed medically safe for discharge. Minutes to complete discharge: 35 Discharge Summary Reason For Visit: NSTEMI, ELEVATED TROPONIN, HTN Current Active Problems NSTEMI (non-ST elevated myocardial infarction) (Acute) Condition: Guarded - Instructions Diet, Activity, Other Instructions: You were in the hospital because of high blood pressure with headache and blurred vision. Some of your heart markers were mildly elevated but remained stable. An ultrasound of your heart was done which did not show any abnormalities. You were seen by a charger tester who did not have any further recommendations. You need to take the following medications as prescribed: Nifedipine ER (Procardia) 60 mg, one pill daily Labetalol 100 mg, twice daily, one pill in the morning and one pill at night Furosemide (Lasix) 40 mg, one pill daily Amlodipine 10 mg, one pill daily Lisinopril 40 mg, one pill daily Lipitor 80 mg, one pill at night You need to follow up with your primary care doctor in 1 week. If you do not have a primary care doctor, you can come to the resident clinic at the [facility]. It is also important that you follow up with a charger tester within 1-2 weeks and follow up regularly. If your symptoms recur or if you have new symptoms, call your doctor or return to the emergency department. Referrals: Miguel Domingo MD [Staff Physician] - Enrike Walsh RES [Resident] - Disposition: HOME - Home Medications Comprehensive Discharge Medication List: Ambulatory Orders Aspirin [Aspirin EC] 81 mg PO DAILY 06/10/18 Amlodipine Besylate [Norvasc -] 10 mg PO DAILY #30 tablet 06/11/18 Atorvastatin Ca [Lipitor] 80 mg PO HS #30 tablet 06/11/18 Furosemide [Lasix] 40 mg PO DAILY #30 tablet 06/11/18 Labetalol HCl [Normodyne -] 100 mg PO BID #30 tablet 06/11/18 Lisinopril [Prinivil -] 40 mg PO DAILY #30 tablet 06/11/18 Nifedipine [Nifedipine ER] 60 mg PO DAILY #30 tab.er.[id number] 06/11/18 This patient is new to me today: No Emergency Visit: Yes ED Registration Date: 06/10/18 Care time: The patient presented to the Emergency Department on the above date and was hospitalized for further evaluation of their emergent condition. Critical Care patient: No - Discharge Referral Referred to [facility] Med P.C.: No
--- NOTE | 2018-06-13 22:15 | EKG ---
Test Reason : Blood Pressure : / mmHG Vent. Rate : 056 BPM Atrial Rate : 056 BPM P-R Int : 192 ms QRS Dur : 112 ms QT Int : 426 ms P-R-T Axes : 052 106 037 degrees QTc Int : 411 ms SINUS BRADYCARDIA POSSIBLE LEFT ATRIAL ENLARGEMENT RIGHTWARD AXIS BORDERLINE ECG WHEN COMPARED WITH ECG OF 11-JUN-2018 01:14, NO SIGNIFICANT CHANGE WAS FOUND Confirmed by CLIVE SANDERSON MD ([id number]) on 06/13/2018 10:15:00 PM Referred By: CHUCK VELÁSQUEZ DR Confirmed By:CLIVE SANDERSON MD
== END 2018-06-11 16:30 | disposition home or self-care (01) | DRG 199 ==
LOC: JER 11:31 → JERBED 15:34 → J4W 20:35
PROVIDERS: ADMIT Hospitalist; ATTEND Hospitalist
DX: I16.0 Hypertensive urgency (principal); I21.4 Non-ST elevation (NSTEMI) myocardial infarction; Z91.14 Patient's other noncompliance with medication regimen; I10 Essential (primary) hypertension; I45.10 Unspecified right bundle-branch block; E78.5 Hyperlipidemia, unspecified; E66.9 Obesity, unspecified; G47.33 Obstructive sleep apnea (adult) (pediatric); Z68.36 Body mass index [BMI] 36.0-36.9, adult; R09.02 Hypoxemia; I25.2 Old myocardial infarction; Z98.61 Coronary angioplasty status
CPT/HCPCS: 36415; 70450-TC; 71045-TC-FY; 80053; 80061; 82550; 82553; 83036; 83721; 83735; 83880; 84100; 84484; 85025; 85610; 93005; 93010; 93306-TC; 94660; 99283-25

== ENCOUNTER 2018-08-27 12:37 | Emergency (ER) | payer OTHER ==
[2018-08-27 13:08] VITALS: BP 115/66; PULSE 86; TEMP 98.3; BMI 34.9
--- NOTE | 2018-08-27 13:40 | PDOC ---
History of Present Illness - General Chief Complaint: Injury Stated Complaint: NASAL BLEED Time Seen by Provider: 08/27/18 13:14 History Source: Patient Exam Limitations: No Limitations - History of Present Illness Initial Comments: 08/27/18 13:35 38 yr male states he slipped on steps 2 days ago injured left elbow. Pt states he has nasal congestion today with some bloody nasal discharge. no fever no cough non toxic no abd pain or vomiting. Past History - Past Medical History Allergies/Adverse Reactions: Allergies Allergy/AdvReac Type Severity Reaction Status Date / Time No Known Allergies Allergy Verified 08/27/18 13:04 Home Medications: Ambulatory Orders Aspirin [Aspirin EC] 81 mg PO DAILY 06/10/18 Amlodipine Besylate [Norvasc -] 10 mg PO DAILY #30 tablet 06/11/18 Atorvastatin Ca [Lipitor] 80 mg PO HS #30 tablet 06/11/18 Furosemide [Lasix] 40 mg PO DAILY #30 tablet 06/11/18 Labetalol HCl [Normodyne -] 100 mg PO BID #30 tablet 06/11/18 Lisinopril [Prinivil -] 40 mg PO DAILY #30 tablet 06/11/18 Nifedipine [Nifedipine ER] 60 mg PO DAILY #30 tab.er.24 06/11/18 HTN: Yes - Suicide/Smoking/Psychosocial Hx Smoking History: Smoker current status UNK Have you smoked in the past 12 months: No Hx Alcohol Use: Yes (SOCIAL) Drug/Substance Use Hx: No Substance Use Type: None *Physical Exam - Vital Signs Last Vital Signs Temp Pulse Resp BP Pulse Ox 98.3 F 86 18 115/66 96 08/27/18 13:06 08/27/18 13:06 08/27/18 13:06 08/27/18 13:06 08/27/18 13:06 - Physical Exam General Appearance: Yes: Nourished, Appropriately Dressed HEENT: positive: EOMI, HARESH, TMs Normal, Pharynx Normal, Rhinorrhea (clear ), Sinus Tenderness (left side). negative: Tonsillar Exudate, Tonsillar Erythema Neck: positive: Supple. negative: Tender, Lymphadenopathy (R), Lymphadenopathy (L) Respiratory/Chest: positive: Lungs Clear, Normal Breath Sounds Cardiovascular: positive: Regular Rhythm, Regular Rate Gastrointestinal/Abdominal: positive: Normal Bowel Sounds, Soft. negative: Tender Musculoskeletal: positive: Normal Inspection Extremity: positive: Normal Capillary Refill, Normal Inspection, Normal Range of Motion, Other (left elbow with mild echymosis noted to the outer aspect medially, FROM no bony tenderness, nv intact). negative: Tender, Coldness, Cyanosis, Delayed Capillary Refill, Pedal Edema, Swelling, Erythema, Inflammation Integumentary: positive: Normal Color, Dry, Warm Neurologic: positive: Fully Oriented, Alert, Normal Mood/Affect, Normal Response , Motor Strength 5/5 Moderate Sedation - Procedure Monitoring Vital Signs: Procedure Monitoring Vital Signs Temperature 98.3 F 08/27/18 13:06 Pulse Rate 86 08/27/18 13:06 Respiratory Rate 18 08/27/18 13:06 Blood Pressure 115/66 08/27/18 13:06 O2 Sat by Pulse Oximetry (%) 96 08/27/18 13:06 Medical Decision Making - Medical Decision Making 08/27/18 14:28 cc: fall 2 days ago injured left elbow fell on steps pt had sinus drainage today no headache no dizzyness no vomiting, no head injury after the fall pt concerned about mucous with blood from nares in it non toxic no fever neg hemotympanum will dc with sinusitus instructions *DC/Admit/Observation/Transfer Diagnosis at time of Disposition: Acute sinusitis Qualifiers: Sinusitis location: maxillary Recurrence: non-recurrent Qualified Code(s): J01.00 - Acute maxillary sinusitis, unspecified - Discharge Dispostion Disposition: HOME Condition at time of disposition: Good - Referrals - Patient Instructions Additional Instructions: use a saline nasal spray sold over the counter to help irrigate the sinuses take tylenol as needed for pain follow up with your doctor for any worsening symptoms - Post Discharge Activity
== END 2018-08-27 13:43 | disposition home or self-care (01) ==
LOC: JERFT 12:37
DX: J01.00 Acute maxillary sinusitis, unspecified (principal); W18.39XA Other fall on same level, initial encounter; Y93.89 Activity, other specified; Y92.89 Other specified places as the place of occurrence of the external cause; I10 Essential (primary) hypertension
CPT/HCPCS: 99281-25

== ENCOUNTER 2021-09-22 07:14 | Inpatient (IN) | payer OTHER ==
[2021-09-22] MEDS ORDERED: DEXAMETHASONE SOD PHOSPHATE 10 MG/1 ML VIAL IM ONE (08:45)
[2021-09-22 09:22] LABS: CHLORIDE 100 mmol/L (98-107); INR 1.1 (0.83-1.09); PROTHROMBIN TIME (PATIENT) 12.9 SEC (9.7-13.0); SODIUM 140 mmol/L (136-145)
[2021-09-22] MEDS ORDERED: DEXAMETHASONE SOD PHOSPHATE 10 MG/1 ML VIAL ONE (09:22)
[2021-09-22] MEDS ORDERED: ALBUTEROL SO4 2.5/IPRATROPIUM 0.5 INH SOL 3 ML VIAL.NEB. NEB ONE (09:22)
[2021-09-22] MEDS ORDERED: morphine CARPU-JECT 4 MG/1 ML DISP.SYRIN IVPUSH ONE (09:22)
[2021-09-22 09:25] LABS: BLOOD UREA NITROGEN 16.8 mg/dL (7-18); CALCIUM 8.9 mg/dL (8.5-10.1); GLUCOSE,RANDOM 103 mg/dL (74-106)
[2021-09-22 09:26] LABS: ALBUMIN 3.1 g/dl (3.4-5.0); ANION GAP 6 MMOL/L (8-16); CO2 34 mmol/L (21-32); LIPASE 87 U/L (73-393); MAGNESIUM 2.2 mg/dL (1.8-2.4)
[2021-09-22] MEDS ORDERED: LABETALOL HCL 5 MG/1 ML (100MG/20 ML VIAL) IVPUSH ONE ×2 (09:26→23:09)
[2021-09-22 09:28] LABS: SGPT/ALT 45 U/L (13-61)
[2021-09-22 09:29] LABS: SGOT/AST 36 U/L (15-37)
[2021-09-22 09:30] LABS: BILIRUBIN,TOTAL 1.2 mg/dL (0.2-1); LDH 328 U/L (87-246); TOT PROT 6.4 g/dl (6.4-8.2)
[2021-09-22 09:31] LABS: ALK PHOS 69 U/L (45-117); N-TERMINAL BNP 269.5 pg/ml (5-125)
[2021-09-22 09:33] LABS: BASO % 0.8 % (0-2.0); EOS % 0.5 % (0-4.5); HEMATOCRIT 52.8 % (35.4-49); HEMOGLOBIN 17.5 GM/dL (11.7-16.9); LYMPH % 14.8 % (8-40); MCH 30.1 pg (25.7-33.7); MCHC 33.1 g/dl (32.0-35.9); MEAN CELL VOLUME 90.9 fl (80-96); MEAN PLT VOLUME 8.8 fl (7.5-11.1); MONO % 6.7 % (3.8-10.2); NEUT % 77.2 % (42.8-82.8); PLATELET COUNT 271 10^3/uL (134-434); RBC 5.81 M/mm3 (4.00-5.60); RDW 13.5 % (11.9-15.9); WHITE BLOOD COUNT 5.5 K/mm3 (4.0-10.0)
[2021-09-22] MEDS ORDERED: morphine SULFATE 4 MG/ML VIAL ONE (09:33)
[2021-09-22] MEDS ORDERED: ASPIRIN 81 MG CHEWABLE TABLETS PO ONE (09:44)
[2021-09-22] MEDS: ALBUTEROL SO4 2.5/IPRATROPIUM 0.5 INH SOL 3 ML VIAL.NEB. NEB SCH ×3 (09:47→10:10)
[2021-09-22] MEDS ORDERED: LISINOPRIL 20 MG TABLET PO ONE (10:14)
[2021-09-22] MEDS ORDERED: ASPIRIN 325 MG ENTERIC COATED TABLET (FP) ONE (10:21)
[2021-09-22] MEDS ORDERED: LISINOPRIL 20 MG TABLET ONE (10:22)
[2021-09-22] MEDS ORDERED: NIFEdipine E.R. 30 MG TABLET ONE (15:10)
[2021-09-22] MEDS ORDERED: FUROSEMIDE 40 MG/4 ML INJECTABLE VIAL ONE (15:11)
[2021-09-22] MEDS: NIFEdipine E.R 60 MG TABLET PO SCH (15:18)
[2021-09-22] MEDS: FUROSEMIDE 40 MG/4 ML INJECTABLE VIAL IVPUSH SCH (15:18)
[2021-09-22 18:45] LABS: ARTERIAL BLD GAS O2 SATURATION 86.4 % (95-98); ARTERIAL BLOOD GAS BASE EXCESS 5.4 mmol/L (-2-2); ARTERIAL BLOOD GAS PO2 55.2 mmHg (80-100); ARTERIAL BLOOD GAS pH 7.348 (7.350-7.450)
[2021-09-22 18:47] LABS: ALLENS TEST POSITIVE
[2021-09-22] MEDS ORDERED: LABETALOL HCL 100 MG TABLET (FP) ONE (20:41)
[2021-09-22] MEDS ORDERED: HEPARIN NA (PORCINE) 5,000 UNITS/ML 1ML VIAL ONE (20:41)
[2021-09-22] MEDS ORDERED: ATORVASTATIN CA 80 MG TABLET (FP) ONE (20:41)
[2021-09-22] MEDS: HEPARIN NA (PORCINE) 5,000 UNITS/ML 1ML VIAL SQ SCH (21:48)
[2021-09-22] MEDS: LABETALOL HCL 100 MG TABLET (FP) PO SCH (21:48)
[2021-09-22] MEDS: ATORVASTATIN CA 80 MG TABLET (FP) PO SCH (21:48)
[2021-09-23] MEDS ORDERED: morphine SULFATE 4 MG/ML VIAL IVPUSH PRN (00:16)
[2021-09-23] MEDS ORDERED: ACETAMINOPHEN 325 MG TABLET (FP) PO PRN (00:16)
[2021-09-23] MEDS ORDERED: ASPIRIN COATED 81 MG TABLET.EC ONE (08:41)
[2021-09-23] MEDS ORDERED: LISINOPRIL 20 MG TABLET ONE (08:41)
[2021-09-23] MEDS ORDERED: NIFEdipine E.R. 30 MG TABLET ONE (08:41)
[2021-09-23] MEDS ORDERED: LABETALOL HCL 100 MG TABLET (FP) ONE (08:41)
[2021-09-23] MEDS ORDERED: FUROSEMIDE 40 MG/4 ML INJECTABLE VIAL ONE (08:42)
[2021-09-23] MEDS ORDERED: HEPARIN NA (PORCINE) 5,000 UNITS/ML 1ML VIAL ONE (08:42)
[2021-09-23 09:00] LABS: BASO % 0.4 % (0-2.0); HEMATOCRIT 53.2 % (35.4-49); HEMOGLOBIN 17.4 GM/dL (11.7-16.9); LYMPH % 4.6 % (8-40); MCH 30.1 pg (25.7-33.7); MCHC 32.8 g/dl (32.0-35.9); MEAN CELL VOLUME 91.7 fl (80-96); MEAN PLT VOLUME 8.1 fl (7.5-11.1); MONO % 6.3 % (3.8-10.2); NEUT % 88.7 % (42.8-82.8); PLATELET COUNT 265 10^3/uL (134-434); RDW 13.7 % (11.9-15.9); WHITE BLOOD COUNT 14.2 K/mm3 (4.0-10.0)
[2021-09-23] MEDS: ASPIRIN COATED 81 MG TABLET.EC PO SCH (09:19)
[2021-09-23] MEDS: NIFEdipine E.R 60 MG TABLET PO SCH (09:20)
[2021-09-23] MEDS: FUROSEMIDE 40 MG/4 ML INJECTABLE VIAL IVPUSH SCH (09:20)
[2021-09-23] MEDS: HEPARIN NA (PORCINE) 5,000 UNITS/ML 1ML VIAL SQ SCH ×2 (09:20→23:22)
[2021-09-23] MEDS: LISINOPRIL 20 MG TABLET PO SCH (09:20)
[2021-09-23] MEDS: LABETALOL HCL 100 MG TABLET (FP) PO SCH ×2 (09:20→23:20)
[2021-09-23] MEDS: VANCOMYCIN PREMIX 1.5 GM 1,500 MG/300 ML BAG IVPB SCH (09:23)
[2021-09-23 09:27] LABS: CHLORIDE 96 mmol/L (98-107); SODIUM 140 mmol/L (136-145)
[2021-09-23] MEDS ORDERED: PIPERACILLIN/TAZOB 3.375 GM 3.375 GM/50 ML BAG IVPB ONE (09:36)
[2021-09-23 09:37] LABS: ANION GAP 8 MMOL/L (8-16); CO2 35 mmol/L (21-32)
[2021-09-23 09:38] LABS: ALBUMIN 3.1 g/dl (3.4-5.0); BLOOD UREA NITROGEN 24.6 mg/dL (7-18); GLUCOSE,RANDOM 94 mg/dL (74-106)
[2021-09-23 09:40] LABS: CHOLESTEROL 187 mg/dL (50-200)
[2021-09-23 09:41] LABS: CREATININE 1.1 mg/dL (0.55-1.3); SGOT/AST 26 U/L (15-37); SGPT/ALT 40 U/L (13-61); TRIGLYCERIDES 81 mg/dL (0-150)
[2021-09-23 09:42] LABS: BILIRUBIN,TOTAL 1.5 mg/dL (0.2-1); LDL CHOLESTEROL (ONLY SJRH) 89 mg/dL (5-100); TOT PROT 6.7 g/dl (6.4-8.2)
[2021-09-23 09:43] LABS: ALK PHOS 71 U/L (45-117)
[2021-09-23 09:44] LABS: HDL CHOLESTEROL 77 mg/dL (40-60)
[2021-09-23] MEDS ORDERED: NIFEdipine E.R 60 MG TABLET PO SCH (10:00)
[2021-09-23] MEDS: PIPERACILLIN/TAZOB 3.375 GM 3.375 GM in DEXTROSE 5%-WATER - 50 ML IVPB SCH ×2 (10:30→18:29)
[2021-09-23 17:44] VITALS: BMI 40.6
[2021-09-23] MEDS ORDERED: DEXTROSE 5%-WATER - 50 ML IVPB ONE (18:27)
[2021-09-23] MEDS ORDERED: PIPERACILLIN/TAZOBACTAM 3.375 GM VIAL IVPB ONE (18:27)
[2021-09-23] MEDS: ATORVASTATIN CA 80 MG TABLET (FP) PO SCH (23:19)
[2021-09-24] MEDS: VANCOMYCIN PREMIX 1.5 GM 1,500 MG/300 ML BAG IVPB SCH (01:30)
[2021-09-24] MEDS ORDERED: PIPERACILLIN/TAZOBACTAM 3.375 GM VIAL IVPB ONE (01:48)
[2021-09-24] MEDS: PIPERACILLIN/TAZOB 3.375 GM 3.375 GM in DEXTROSE 5%-WATER - 50 ML IVPB SCH (03:49)
[2021-09-24 07:31] LABS: ALBUMIN 3.1 g/dl (3.4-5.0); CALCIUM 8.8 mg/dL (8.5-10.1)
[2021-09-24 07:32] LABS: BLOOD UREA NITROGEN 28.8 mg/dL (7-18); MAGNESIUM 2.3 mg/dL (1.8-2.4)
[2021-09-24 07:36] LABS: TOT PROT 6.2 g/dl (6.4-8.2)
[2021-09-24 08:00] LABS: BASO % 0.6 % (0-2.0); EOS % 0.9 % (0-4.5); HEMATOCRIT 51.7 % (35.4-49); HEMOGLOBIN 16.8 GM/dL (11.7-16.9); LYMPH % 15.7 % (8-40); MCH 30.1 pg (25.7-33.7); MCHC 32.5 g/dl (32.0-35.9); MEAN CELL VOLUME 92.9 fl (80-96); MEAN PLT VOLUME 8.9 fl (7.5-11.1); NEUT % 73.8 % (42.8-82.8); PLATELET COUNT 260 10^3/uL (134-434); RBC 5.57 M/mm3 (4.00-5.60); RDW 14.1 % (11.9-15.9); WHITE BLOOD COUNT 8.2 K/mm3 (4.0-10.0)
[2021-09-24] MEDS ORDERED: PIPERACILLIN/TAZOB 3.375 GM 3.375 GM in DEXTROSE 5%-WATER - 50 ML IVPB SCH (10:00)
[2021-09-24] MEDS ORDERED: VANCOMYCIN PREMIX 1.5 GM 1,500 MG/300 ML BAG IVPB SCH (10:00)
[2021-09-24] MEDS: HEPARIN NA (PORCINE) 5,000 UNITS/ML 1ML VIAL SQ SCH (10:25)
[2021-09-24] MEDS: FUROSEMIDE 40 MG/4 ML INJECTABLE VIAL IVPUSH SCH (10:25)
[2021-09-24] MEDS: LABETALOL HCL 100 MG TABLET (FP) PO SCH (10:26)
[2021-09-24] MEDS: ASPIRIN COATED 81 MG TABLET.EC PO SCH (10:27)
[2021-09-24] MEDS: LISINOPRIL 20 MG TABLET PO SCH (10:27)
[2021-09-24] MEDS: NIFEdipine E.R 60 MG TABLET PO SCH (10:28)
[2021-09-24 13:14] LABS: ALLENS TEST POSITIVE; ARTERIAL BLD GAS O2 SATURATION 93.8 % (95-98); ARTERIAL BLOOD GAS BASE EXCESS 9.3 mmol/L (-2-2); ARTERIAL BLOOD GAS PO2 67.2 mmHg (80-100); ARTERIAL BLOOD GAS pH 7.443 (7.350-7.450)
[2021-09-24 15:51] VITALS: BP 152/80; PULSE 79; TEMP 98.2
== END 2021-09-24 19:03 | disposition home or self-care (01) | DRG 190 ==
LOC: JER 07:14 → JERBED 11:47 → J4W 09-23 17:07
PROVIDERS: ADMIT Internal Medicine; ATTEND Nurse Practitioner Acute Care
DX: I21.4 Non-ST elevation (NSTEMI) myocardial infarction (principal); J96.01 Acute respiratory failure with hypoxia; E66.01 Morbid (severe) obesity due to excess calories; Z68.41 Body mass index [BMI] 40.0-44.9, adult; G47.33 Obstructive sleep apnea (adult) (pediatric); I16.1 Hypertensive emergency; J98.11 Atelectasis; R55 Syncope and collapse; E78.5 Hyperlipidemia, unspecified; I25.10 Atherosclerotic heart disease of native coronary artery without angina pectoris
CPT/HCPCS: 36415; 36600; 70450-TC; 71045-TC-FY; 71275-TC; 73030-TC-RT-FY; 74174-TC; 80053; 80061; 82550; 82553; 82728; 82803; 82962; 83615; 83690; 83735; 83880; 84484; 85025; 85379; 85610; 85730; 86140; 87804; 93005; 93010; 93306-TC; 99285-25; C9803; J1100; J1644; U0003; U0005

== ENCOUNTER 2022-03-17 00:53 | Inpatient (IN) | payer OTHER ==
[2022-03-17] MEDS ORDERED: LIDOCAINE 5% TOPICAL PATCH TP ONE (01:32)
[2022-03-17] MEDS ORDERED: KETOROLAC TROMETHAMINE 15 MG/ML VIAL IM ONE (01:43)
[2022-03-17] MEDS ORDERED: LIDOCAINE 5% TOPICAL PATCH ONE (01:57)
[2022-03-17] MEDS ORDERED: KETOROLAC TROMETHAMINE 15 MG/ML VIAL ONE (01:57)
[2022-03-17 06:17] LABS: BASO % 0.6 % (0-2.0); EOS % 0.3 % (0-4.5); HEMATOCRIT 51.7 % (35.4-49); HEMOGLOBIN 17.2 GM/dL (11.7-16.9); LYMPH % 10.1 % (8-40); MCH 30.7 pg (25.7-33.7); MCHC 33.3 g/dl (32.0-35.9); MEAN CELL VOLUME 92.4 fl (80-96); MONO % 4.8 % (3.8-10.2); NEUT % 84.2 % (42.8-82.8); PLATELET COUNT 244 10^3/uL (134-434); RBC 5.59 M/mm3 (4.00-5.60); RDW 13.1 % (11.9-15.9); WHITE BLOOD COUNT 5.9 K/mm3 (4.0-10.0)
[2022-03-17] MEDS ORDERED: ACETAMINOPHEN 1000 MG/100 ML BAG IVPB ONE (06:32)
[2022-03-17 06:38] LABS: CHLORIDE 101 mmol/L (98-107); SODIUM 140 mmol/L (136-145)
[2022-03-17 06:41] LABS: ANION GAP 5 MMOL/L (8-16); CO2 34 mmol/L (21-32); GLUCOSE,RANDOM 128 mg/dL (74-106); MAGNESIUM 2.3 mg/dL (1.8-2.4)
[2022-03-17 06:44] LABS: CREATININE 0.8 mg/dL (0.55-1.3); SGOT/AST 35 U/L (15-37); SGPT/ALT 46 U/L (13-61)
[2022-03-17 06:45] LABS: BILIRUBIN,TOTAL 0.9 mg/dL (0.2-1); TOT PROT 7.4 g/dl (6.4-8.2)
[2022-03-17 06:47] LABS: ALK PHOS 70 U/L (45-117)
[2022-03-17] MEDS ORDERED: SODIUM CHLORIDE 0.9% 500 ML INFUS.BAG IV ONE (06:48)
[2022-03-17 06:56] LABS: VENOUS O2 SATURATION 99.4 % (70-80); VENOUS PCO2 65.1 mmHg (38-52); VENOUS PH 7.256 (7.310-7.410)
[2022-03-17] MEDS ORDERED: ACETAMINOPHEN INJECTION 100 ML IVPB ONE (07:26)
[2022-03-17] MEDS ORDERED: ASPIRIN 81 MG CHEWABLE TABLETS PO ONE (07:55)
[2022-03-17] MEDS ORDERED: ASPIRIN 81 MG CHEWABLE TABLETS ONE (08:00)
[2022-03-17] MEDS ORDERED: morphine CARPU-JECT 4 MG/1 ML DISP.SYRIN IVPUSH ONE ×2 (09:02→10:27)
[2022-03-17] MEDS ORDERED: morphine SULFATE 4 MG/ML VIAL ONE ×2 (09:04→10:44)
[2022-03-17 09:50] LABS: INR 1.09 (0.83-1.09); PROTHROMBIN TIME (PATIENT) 12.5 SEC (9.7-13.0)
[2022-03-17 09:53] LABS: ACTIVATED PTT 28.2 SECONDS (25.2-36.5)
[2022-03-17] MEDS ORDERED: LABETALOL HCL 5 MG/1 ML (100MG/20 ML VIAL) IVPUSH ONE (10:31)
[2022-03-17] MEDS ORDERED: LABETALOL HCL 5 MG/1 ML (100MG/20 ML VIAL) ONE (10:45)
[2022-03-17] MEDS ORDERED: amLODIPine BESYLATE 10 MG TABLET (FP) ONE (10:45)
[2022-03-17] MEDS ORDERED: HYDROCHLOROTHIAZIDE 25 MG TABLET (FP) ONE (10:46)
[2022-03-17] MEDS: HYDROCHLOROTHIAZIDE 25 MG TABLET (FP) PO SCH (11:14)
[2022-03-17] MEDS: amLODIPine BESYLATE 10 MG TABLET (FP) PO SCH (11:14)
[2022-03-17] MEDS: LABETALOL HCL 100 MG TABLET (FP) PO SCH ×2 (12:14→22:14)
[2022-03-17] MEDS: LISINOPRIL 20 MG TABLET PO SCH (12:14)
[2022-03-17] MEDS ORDERED: LIDOCAINE PATCH REMOVAL MC ONE (14:00)
[2022-03-17 16:39] VITALS: BMI 43.2
[2022-03-17] MEDS: ATORVASTATIN CA 40 MG TABLET (FP) PO SCH (22:26)
[2022-03-18 08:03] LABS: HEMATOCRIT 48.7 % (35.4-49); HEMOGLOBIN 16.3 GM/dL (11.7-16.9); MCH 30.8 pg (25.7-33.7); MCHC 33.4 g/dl (32.0-35.9); MEAN CELL VOLUME 92.2 fl (80-96); MEAN PLT VOLUME 8.6 fl (7.5-11.1); PLATELET COUNT 221 10^3/uL (134-434); RBC 5.28 M/mm3 (4.00-5.60); WHITE BLOOD COUNT 5.1 K/mm3 (4.0-10.0)
[2022-03-18 08:30] LABS: CALCIUM 8.8 mg/dL (8.5-10.1)
[2022-03-18 08:31] LABS: BLOOD UREA NITROGEN 14.9 mg/dL (7-18)
[2022-03-18 08:34] LABS: CREATININE 0.8 mg/dL (0.55-1.3)
[2022-03-18] MEDS: LABETALOL HCL 100 MG TABLET (FP) PO SCH ×2 (09:32→21:05)
[2022-03-18] MEDS: ENOXAPARIN NA (PORCINE) 40 MG/0.4 ML DISP.SYRIN SQ SCH (09:32)
[2022-03-18] MEDS: CYCLOBENZAPRINE HCL 5 MG TABLET PO PRN ×2 (09:33→21:05)
[2022-03-18] MEDS: ACETAMINOPHEN 325 MG TABLET (FP) PO PRN (09:33)
[2022-03-18] MEDS: HYDROCHLOROTHIAZIDE 25 MG TABLET (FP) PO SCH (09:34)
[2022-03-18] MEDS: ASPIRIN COATED 81 MG TABLET.EC PO SCH (09:34)
[2022-03-18] MEDS: LISINOPRIL 20 MG TABLET PO SCH (09:35)
[2022-03-18] MEDS: amLODIPine BESYLATE 10 MG TABLET (FP) PO SCH (09:35)
[2022-03-18] MEDS: ATORVASTATIN CA 40 MG TABLET (FP) PO SCH (21:05)
[2022-03-19] MEDS: ACETAMINOPHEN 325 MG TABLET (FP) PO PRN ×2 (09:07→20:56)
[2022-03-19] MEDS: CYCLOBENZAPRINE HCL 5 MG TABLET PO PRN ×2 (09:07→20:57)
[2022-03-19] MEDS: HYDROCHLOROTHIAZIDE 25 MG TABLET (FP) PO SCH (10:01)
[2022-03-19] MEDS: ENOXAPARIN NA (PORCINE) 40 MG/0.4 ML DISP.SYRIN SQ SCH (10:01)
[2022-03-19] MEDS: ASPIRIN COATED 81 MG TABLET.EC PO SCH (10:02)
[2022-03-19] MEDS: LABETALOL HCL 100 MG TABLET (FP) PO SCH ×3 (10:02→21:05)
[2022-03-19] MEDS: amLODIPine BESYLATE 10 MG TABLET (FP) PO SCH (10:03)
[2022-03-19] MEDS: LISINOPRIL 20 MG TABLET PO SCH (10:03)
[2022-03-19 19:08] LABS: ALLENS TEST POSITIVE; ARTERIAL BLD GAS O2 SATURATION 95.3 % (95-98); ARTERIAL BLOOD GAS BASE EXCESS 10.6 mmol/L (-2-2); ARTERIAL BLOOD GAS PO2 82.3 mmHg (80-100); ARTERIAL BLOOD GAS pH 7.362 (7.350-7.450)
[2022-03-19] MEDS: ATORVASTATIN CA 40 MG TABLET (FP) PO SCH ×2 (20:56→21:05)
[2022-03-20 07:06] LABS: BASO % 0.8 % (0-2.0); EOS % 3.8 % (0-4.5); HEMATOCRIT 49.4 % (35.4-49); HEMOGLOBIN 16.4 GM/dL (11.7-16.9); LYMPH % 23.7 % (8-40); MCH 30.7 pg (25.7-33.7); MCHC 33.3 g/dl (32.0-35.9); MEAN CELL VOLUME 92.2 fl (80-96); MEAN PLT VOLUME 8.1 fl (7.5-11.1); MONO % 13.9 % (3.8-10.2); NEUT % 57.8 % (42.8-82.8); PLATELET COUNT 212 10^3/uL (134-434); RBC 5.36 M/mm3 (4.00-5.60); RDW 13.3 % (11.9-15.9); WHITE BLOOD COUNT 3.6 K/mm3 (4.0-10.0)
[2022-03-20] MEDS: amLODIPine BESYLATE 10 MG TABLET (FP) PO SCH (09:33)
[2022-03-20] MEDS: LABETALOL HCL 100 MG TABLET (FP) PO SCH ×2 (09:33→21:18)
[2022-03-20] MEDS: HYDROCHLOROTHIAZIDE 25 MG TABLET (FP) PO SCH (09:33)
[2022-03-20] MEDS: LISINOPRIL 20 MG TABLET PO SCH (09:33)
[2022-03-20] MEDS: ENOXAPARIN NA (PORCINE) 40 MG/0.4 ML DISP.SYRIN SQ SCH (09:34)
[2022-03-20] MEDS: ASPIRIN COATED 81 MG TABLET.EC PO SCH (09:34)
[2022-03-20] MEDS ORDERED: FUROSEMIDE 40 MG/4 ML INJECTABLE VIAL IVPUSH ONE (13:45)
[2022-03-20] MEDS: ATORVASTATIN CA 40 MG TABLET (FP) PO SCH (21:18)
[2022-03-21 08:02] LABS: BASO % 1.2 % (0-2.0); EOS % 6.9 % (0-4.5); HEMATOCRIT 51.8 % (35.4-49); HEMOGLOBIN 17.3 GM/dL (11.7-16.9); LYMPH % 22.7 % (8-40); MCH 30.9 pg (25.7-33.7); MCHC 33.3 g/dl (32.0-35.9); MEAN CELL VOLUME 92.7 fl (80-96); MEAN PLT VOLUME 8.5 fl (7.5-11.1); MONO % 12.8 % (3.8-10.2); NEUT % 56.4 % (42.8-82.8); PLATELET COUNT 207 10^3/uL (134-434); RBC 5.59 M/mm3 (4.00-5.60); WHITE BLOOD COUNT 3.4 K/mm3 (4.0-10.0)
[2022-03-21 08:31] LABS: ALBUMIN 3.9 g/dl (3.4-5.0); BLOOD UREA NITROGEN 19.9 mg/dL (7-18); CALCIUM 9.4 mg/dL (8.5-10.1); MAGNESIUM 2.3 mg/dL (1.8-2.4)
[2022-03-21 08:33] LABS: BILIRUBIN,DIRECT 0.4 mg/dL (0.0-0.2); CREATININE 1.1 mg/dL (0.55-1.3)
[2022-03-21 08:35] LABS: BILIRUBIN,TOTAL 2.4 mg/dL (0.2-1); PHOSPHOROUS 4.4 mg/dL (2.5-4.9); TOT PROT 7.2 g/dl (6.4-8.2)
[2022-03-21] MEDS: ENOXAPARIN NA (PORCINE) 40 MG/0.4 ML DISP.SYRIN SQ SCH (09:25)
[2022-03-21] MEDS: amLODIPine BESYLATE 10 MG TABLET (FP) PO SCH (09:28)
[2022-03-21] MEDS: HYDROCHLOROTHIAZIDE 25 MG TABLET (FP) PO SCH (09:28)
[2022-03-21] MEDS: ASPIRIN COATED 81 MG TABLET.EC PO SCH (09:28)
[2022-03-21] MEDS: LISINOPRIL 20 MG TABLET PO SCH (09:28)
[2022-03-21] MEDS: LABETALOL HCL 100 MG TABLET (FP) PO SCH ×2 (09:28→21:41)
[2022-03-21] MEDS: ATORVASTATIN CA 40 MG TABLET (FP) PO SCH (21:41)
[2022-03-22] MEDS: LISINOPRIL 20 MG TABLET PO SCH (09:07)
[2022-03-22] MEDS: ASPIRIN COATED 81 MG TABLET.EC PO SCH (09:07)
[2022-03-22] MEDS: ENOXAPARIN NA (PORCINE) 40 MG/0.4 ML DISP.SYRIN SQ SCH (09:07)
[2022-03-22] MEDS: HYDROCHLOROTHIAZIDE 25 MG TABLET (FP) PO SCH (09:07)
[2022-03-22] MEDS: amLODIPine BESYLATE 10 MG TABLET (FP) PO SCH (09:08)
[2022-03-22] MEDS: LABETALOL HCL 100 MG TABLET (FP) PO SCH (09:08)
[2022-03-22] MEDS ORDERED: LABETALOL HCL 100 MG TABLET (FP) PO SCH (12:52)
[2022-03-22] MEDS: ATORVASTATIN CA 40 MG TABLET (FP) PO SCH (22:04)
[2022-03-22] MEDS: LABETALOL HCL 200 MG TABLET (FP) PO SCH (22:04)
[2022-03-23] MEDS: LISINOPRIL 20 MG TABLET PO SCH (09:42)
[2022-03-23] MEDS: LABETALOL HCL 200 MG TABLET (FP) PO SCH ×2 (09:42→22:05)
[2022-03-23] MEDS: amLODIPine BESYLATE 10 MG TABLET (FP) PO SCH (09:42)
[2022-03-23] MEDS: ENOXAPARIN NA (PORCINE) 40 MG/0.4 ML DISP.SYRIN SQ SCH (09:42)
[2022-03-23] MEDS: ASPIRIN COATED 81 MG TABLET.EC PO SCH (09:43)
[2022-03-23] MEDS: HYDROCHLOROTHIAZIDE 25 MG TABLET (FP) PO SCH (09:43)
[2022-03-23] MEDS: ATORVASTATIN CA 40 MG TABLET (FP) PO SCH (22:05)
[2022-03-24] MEDS: ASPIRIN COATED 81 MG TABLET.EC PO SCH (10:18)
[2022-03-24] MEDS: LISINOPRIL 20 MG TABLET PO SCH (10:18)
[2022-03-24] MEDS: ENOXAPARIN NA (PORCINE) 40 MG/0.4 ML DISP.SYRIN SQ SCH (10:18)
[2022-03-24] MEDS: LABETALOL HCL 200 MG TABLET (FP) PO SCH ×2 (10:18→21:21)
[2022-03-24] MEDS: HYDROCHLOROTHIAZIDE 25 MG TABLET (FP) PO SCH (10:18)
[2022-03-24] MEDS: amLODIPine BESYLATE 10 MG TABLET (FP) PO SCH (10:18)
[2022-03-24] MEDS: ATORVASTATIN CA 40 MG TABLET (FP) PO SCH (21:21)
[2022-03-25] MEDS: LISINOPRIL 20 MG TABLET PO SCH (10:05)
[2022-03-25] MEDS: LABETALOL HCL 200 MG TABLET (FP) PO SCH (10:05)
[2022-03-25] MEDS: ASPIRIN COATED 81 MG TABLET.EC PO SCH (10:05)
[2022-03-25] MEDS: amLODIPine BESYLATE 10 MG TABLET (FP) PO SCH (10:05)
[2022-03-25] MEDS: HYDROCHLOROTHIAZIDE 25 MG TABLET (FP) PO SCH (10:05)
[2022-03-25] MEDS: ENOXAPARIN NA (PORCINE) 40 MG/0.4 ML DISP.SYRIN SQ SCH (10:06)
[2022-03-25 14:35] VITALS: BP 145/67; PULSE 67; TEMP 98.4
== END 2022-03-25 18:48 | disposition home or self-care (01) | DRG 143 ==
LOC: JER 00:53 → JERBED 07:26 → J4W 12:02
PROVIDERS: ADMIT Internal Medicine; ATTEND Internal Medicine
DX: E66.2 Morbid (severe) obesity with alveolar hypoventilation (principal); I42.8 Other cardiomyopathies; J96.21 Acute and chronic respiratory failure with hypoxia; I24.8 Other forms of acute ischemic heart disease; J90 Pleural effusion, not elsewhere classified; Z68.41 Body mass index [BMI] 40.0-44.9, adult; J96.22 Acute and chronic respiratory failure with hypercapnia; I16.1 Hypertensive emergency; I25.10 Atherosclerotic heart disease of native coronary artery without angina pectoris; J44.9 Chronic obstructive pulmonary disease, unspecified; M25.511 Pain in right shoulder
CPT/HCPCS: 36415; 36600; 71045-TC-FY; 71275-TC; 73030-TC-RT-FY; 80048; 80053; 80076; 82803; 83735; 84100; 84484; 85025; 85027; 85379; 85610; 85730; 93005; 93010; 93306-TC; 94660; 94761; 99291; C9803-CS; Q9967; U0003; U0005

== ENCOUNTER 2022-06-24 08:14 | Emergency (ER) | payer OTHER ==
[2022-06-24 08:26] VITALS: RESP 18; BMI 38.2
[2022-06-24] MEDS ORDERED: ACETAMINOPHEN 500 MG TABLET (FP) PO ONE (09:02)
[2022-06-24] MEDS ORDERED: amLODIPine BESYLATE 10 MG TABLET (FP) PO ONE (09:02)
[2022-06-24] MEDS ORDERED: IBUPROFEN 400 MG TABLET (FP) PO ONE ×2 (09:02→09:13)
[2022-06-24] MEDS ORDERED: LABETALOL HCL 100 MG TABLET (FP) PO ONE (09:07)
[2022-06-24] MEDS ORDERED: LABETALOL HCL 100 MG TABLET (FP) ONE (09:13)
[2022-06-24] MEDS ORDERED: amLODIPine BESYLATE 10 MG TABLET (FP) ONE (09:13)
[2022-06-24] MEDS ORDERED: ACETAMINOPHEN 325 MG TABLET (FP) ONE (09:13)
[2022-06-24] MEDS ORDERED: DIPHTH,PERTUSS(ACELL),TET 0.5 ML DISP.SYRIN IM ONE ×2 (10:45→11:04)
[2022-06-24 10:47] VITALS: BP 166/99; PULSE 85; TEMP 98.1
== END 2022-06-24 11:00 | disposition home or self-care (01) ==
LOC: JER 08:14
PROC: 2W3QX2Z Immobilization of Right Lower Leg using Cast (ICD-10-PCS; principal; 2022-06-24)
PROC: 3E0234Z Introduction of Serum, Toxoid and Vaccine into Muscle, Percutaneous Approach (ICD-10-PCS; 2022-06-24)
DX: S86.012A Strain of left Achilles tendon, initial encounter (principal); S99.912A Unspecified injury of left ankle, initial encounter
CPT/HCPCS: 29515; 73590-TC-LT-FY; 73610-TC-LT-FY; 76882-TC-LT; 90471; 90715; 99284-25

== ENCOUNTER 2023-04-24 21:56 | Inpatient (IN) | payer OTHER ==
[2023-04-24 22:06] VITALS: BMI 41.5
[2023-04-24 23:08] LABS: HEMOGLOBIN 16.6 GM/dL (11.7-16.9); RBC 5.97 M/mm3 (4.00-5.60); WHITE BLOOD COUNT 5.7 K/mm3 (4.0-10.0)
[2023-04-24 23:09] LABS: BASO % 0.7 % (0-2.0); EOS % 1.9 % (0-4.5); HEMATOCRIT 52.6 % (35.4-49); LYMPH % 20.3 % (8-40); MCH 27.7 pg (25.7-33.7); MCHC 31.5 g/dl (32.0-35.9); MEAN CELL VOLUME 88.1 fl (80-96); MEAN PLT VOLUME 8.2 fl (7.5-11.1); MONO % 8.5 % (3.8-10.2); NEUT % 68.6 % (42.8-82.8); PLATELET COUNT 248 10^3/uL (134-434); RDW 14.9 % (11.9-15.9)
[2023-04-24 23:15] LABS: INR 1.16 (0.83-1.09); PROTHROMBIN TIME (PATIENT) 13.4 SEC (9.7-13.0)
[2023-04-24 23:18] LABS: ACTIVATED PTT 31.1 SECONDS (25.2-36.5)
[2023-04-24 23:31] LABS: CALCIUM 8.3 mg/dL (8.5-10.1)
[2023-04-24 23:32] LABS: BLOOD UREA NITROGEN 14.4 mg/dL (7-18)
[2023-04-24 23:35] LABS: CREATININE 1.3 mg/dL (0.55-1.3)
[2023-04-24 23:37] LABS: BILIRUBIN,TOTAL 1.4 mg/dL (0.2-1)
[2023-04-24] MEDS ORDERED: POTASSIUM CHLORIDE TABS 20 MEQ TABLET.ER (FP) PO ONE (23:55)
[2023-04-25 00:02] LABS: N-TERMINAL BNP 289.8 pg/ml (5-125)
[2023-04-25] MEDS ORDERED: POTASSIUM CHLORIDE ORAL LIQUID 20 MEQ/15 ML ONE ×2 (03:22→10:03)
[2023-04-25] MEDS ORDERED: LIDOCAINE 5% TOPICAL PATCH TP ONE (08:21)
[2023-04-25] MEDS ORDERED: KETOROLAC TROMETHAMINE 15 MG/ML VIAL IVPUSH ONE (08:21)
[2023-04-25] MEDS ORDERED: LIDOCAINE 5% TOPICAL PATCH ONE (08:36)
[2023-04-25] MEDS ORDERED: KETOROLAC TROMETHAMINE 15 MG/ML VIAL ONE (08:36)
[2023-04-25] MEDS: KCL 10 MEQ IVPB 10 MEQ/100 ML INFUS.BAG IVPB SCH (08:40)
[2023-04-25] MEDS ORDERED: ACETAMINOPHEN 325 MG TABLET (FP) PO PRN (08:53)
[2023-04-25] MEDS ORDERED: LISINOPRIL 10 MG TABLET PO SCH (10:00)
[2023-04-25] MEDS ORDERED: ATORVASTATIN CA 40 MG TABLET (FP) ONE (10:02)
[2023-04-25] MEDS ORDERED: LABETALOL HCL 200 MG TABLET (FP) ONE (10:02)
[2023-04-25] MEDS ORDERED: LISINOPRIL 20 MG TABLET ONE (10:02)
[2023-04-25] MEDS ORDERED: ASPIRIN COATED 81 MG TABLET.EC ONE (10:02)
[2023-04-25] MEDS ORDERED: FUROSEMIDE 40 MG/4 ML INJECTABLE VIAL ONE (10:03)
[2023-04-25] MEDS ORDERED: HEPARIN NA (PORCINE) 5,000 UNITS/ML 1ML VIAL ONE (10:03)
[2023-04-25] MEDS: LABETALOL HCL 200 MG TABLET (FP) PO SCH ×2 (10:18→22:06)
[2023-04-25] MEDS: ATORVASTATIN CA 40 MG TABLET (FP) PO SCH (10:18)
[2023-04-25] MEDS: ASPIRIN COATED 81 MG TABLET.EC PO SCH (10:18)
[2023-04-25] MEDS: FUROSEMIDE 40 MG/4 ML INJECTABLE VIAL IVPUSH SCH (10:18)
[2023-04-25] MEDS: LISINOPRIL 20 MG TABLET PO SCH (10:18)
[2023-04-25] MEDS: HEPARIN NA (PORCINE) 5,000 UNITS/ML 1ML VIAL SQ SCH ×2 (10:18→22:05)
[2023-04-25] MEDS: POTASSIUM CHLORIDE ORAL LIQUID 20 MEQ/15 ML PO SCH ×2 (10:18→22:06)
[2023-04-25] MEDS: LIDOCAINE PATCH REMOVAL MC SCH (22:11)
[2023-04-26 08:00] LABS: BASO % 0.7 % (0-2.0); HEMATOCRIT 53.3 % (35.4-49); LYMPH % 19.4 % (8-40); MCH 28.6 pg (25.7-33.7); MCHC 31.9 g/dl (32.0-35.9); MEAN CELL VOLUME 89.7 fl (80-96); MEAN PLT VOLUME 8.8 fl (7.5-11.1); MONO % 9.3 % (3.8-10.2); NEUT % 67.6 % (42.8-82.8); RBC 5.94 M/mm3 (4.00-5.60); RDW 15.1 % (11.9-15.9); WHITE BLOOD COUNT 3.9 K/mm3 (4.0-10.0)
[2023-04-26 08:13] LABS: PLATELET COUNT 193 10^3/uL (134-434)
[2023-04-26 08:48] LABS: CALCIUM 8.5 mg/dL (8.5-10.1)
[2023-04-26 08:49] LABS: ALBUMIN 2.9 g/dl (3.4-5.0); MAGNESIUM 1.9 mg/dL (1.8-2.4)
[2023-04-26 08:50] LABS: BLOOD UREA NITROGEN 16.5 mg/dL (7-18)
[2023-04-26 08:52] LABS: CREATININE 1.1 mg/dL (0.55-1.3)
[2023-04-26 08:54] LABS: BILIRUBIN,TOTAL 1.1 mg/dL (0.2-1); TOT PROT 6.1 g/dl (6.4-8.2)
[2023-04-26 09:20] LABS: PLATELET ESTIMATE DECREASED
[2023-04-26] MEDS: LABETALOL HCL 200 MG TABLET (FP) PO SCH ×2 (10:27→21:59)
[2023-04-26] MEDS: LISINOPRIL 20 MG TABLET PO SCH (10:27)
[2023-04-26] MEDS: ASPIRIN COATED 81 MG TABLET.EC PO SCH (10:27)
[2023-04-26] MEDS: HEPARIN NA (PORCINE) 5,000 UNITS/ML 1ML VIAL SQ SCH ×2 (10:27→22:00)
[2023-04-26] MEDS: FUROSEMIDE 40 MG/4 ML INJECTABLE VIAL IVPUSH SCH (10:27)
[2023-04-26] MEDS: POTASSIUM CHLORIDE ORAL LIQUID 20 MEQ/15 ML PO SCH ×2 (10:27→22:01)
[2023-04-26] MEDS: ATORVASTATIN CA 40 MG TABLET (FP) PO SCH (10:27)
[2023-04-26] MEDS: ARTIFICIAL TEARS (POLYVINYL ALCOHOL) OPTH DROPS OU ONE ×2 (10:35→10:59)
[2023-04-26 11:48] LABS: METHADONE, UR NEGATIVE (NEGATIVE); PHENCYCLIDINE,URINE NEGATIVE (NEGATIVE); URINE AMPHETAMINES NEGATIVE (NEGATIVE); URINE BENZODIAZEPINES NEGATIVE (NEGATIVE)
[2023-04-26 11:49] LABS: OPIATES, URI NEGATIVE (NEGATIVE); URINE BARBITURATES NEGATIVE (NEGATIVE)
[2023-04-26 11:50] LABS: COCAINE, UR NEGATIVE (NEGATIVE)
[2023-04-26] MEDS ORDERED: ACETAMINOPHEN 325 MG TABLET (FP) PO PRN (14:14)
[2023-04-26] MEDS: LIDOCAINE PATCH REMOVAL MC SCH (22:08)
[2023-04-27 07:51] LABS: HEMATOCRIT 49.9 % (35.4-49); HEMOGLOBIN 16.3 GM/dL (11.7-16.9); MCHC 32.6 g/dl (32.0-35.9); MEAN PLT VOLUME 8.8 fl (7.5-11.1); PLATELET COUNT 230 10^3/uL (134-434); RBC 5.61 M/mm3 (4.00-5.60); RDW 14.9 % (11.9-15.9); WHITE BLOOD COUNT 3.4 K/mm3 (4.0-10.0)
[2023-04-27 08:00] LABS: POTASSIUM 4.1 mmol/L (3.5-5.1)
[2023-04-27 08:18] LABS: BLOOD UREA NITROGEN 14.3 mg/dL (7-18); CALCIUM 8.5 mg/dL (8.5-10.1); MAGNESIUM 1.8 mg/dL (1.8-2.4)
[2023-04-27 08:19] LABS: ALBUMIN 2.9 g/dl (3.4-5.0)
[2023-04-27 08:22] LABS: PHOSPHOROUS 3.6 mg/dL (2.5-4.9)
[2023-04-27 08:23] LABS: BILIRUBIN,TOTAL 1.4 mg/dL (0.2-1)
[2023-04-27] MEDS: LISINOPRIL 20 MG TABLET PO SCH (12:21)
[2023-04-27] MEDS: HEPARIN NA (PORCINE) 5,000 UNITS/ML 1ML VIAL SQ SCH ×2 (12:21→21:15)
[2023-04-27] MEDS: ATORVASTATIN CA 40 MG TABLET (FP) PO SCH (12:21)
[2023-04-27] MEDS: LABETALOL HCL 200 MG TABLET (FP) PO SCH ×2 (12:21→21:15)
[2023-04-27] MEDS: POTASSIUM CHLORIDE ORAL LIQUID 20 MEQ/15 ML PO SCH ×2 (12:21→21:15)
[2023-04-27] MEDS: FUROSEMIDE 40 MG/4 ML INJECTABLE VIAL IVPUSH SCH (12:21)
[2023-04-27] MEDS: ASPIRIN COATED 81 MG TABLET.EC PO SCH (12:21)
[2023-04-27] MEDS: LIDOCAINE PATCH REMOVAL MC SCH (21:16)
[2023-04-27 21:22] LABS: ARTERIAL BLOOD GAS BASE EXCESS 6.9 mmol/L (-2-2); ARTERIAL BLOOD GAS PO2 65.8 mmHg (80-100); ARTERIAL BLOOD GAS pH 7.334 (7.350-7.450)
[2023-04-27 21:24] LABS: ALLENS TEST POSITIVE
[2023-04-28 08:17] LABS: HEMATOCRIT 50.2 % (35.4-49); HEMOGLOBIN 15.8 GM/dL (11.7-16.9); MCHC 31.4 g/dl (32.0-35.9); MEAN CELL VOLUME 89.1 fl (80-96); MEAN PLT VOLUME 8.6 fl (7.5-11.1); PLATELET COUNT 233 10^3/uL (134-434); RBC 5.64 M/mm3 (4.00-5.60); RDW 14.9 % (11.9-15.9); WHITE BLOOD COUNT 3.3 K/mm3 (4.0-10.0)
[2023-04-28 08:33] LABS: POTASSIUM 4.3 mmol/L (3.5-5.1)
[2023-04-28 08:38] LABS: BLOOD UREA NITROGEN 19.8 mg/dL (7-18); CALCIUM 8.5 mg/dL (8.5-10.1); MAGNESIUM 1.7 mg/dL (1.8-2.4)
[2023-04-28 08:40] LABS: CREATININE 0.9 mg/dL (0.55-1.3); PHOSPHOROUS 3.2 mg/dL (2.5-4.9)
[2023-04-28 08:42] LABS: BILIRUBIN,TOTAL 1.1 mg/dL (0.2-1); TOT PROT 6.1 g/dl (6.4-8.2)
[2023-04-28] MEDS ORDERED: MAGNESIUM 2GM/50ML STERILE WATER IVPB IVPB ONE (09:45)
[2023-04-28] MEDS: POTASSIUM CHLORIDE ORAL LIQUID 20 MEQ/15 ML PO SCH ×2 (09:52→22:42)
[2023-04-28] MEDS: FUROSEMIDE 40 MG/4 ML INJECTABLE VIAL IVPUSH SCH (09:52)
[2023-04-28] MEDS: LISINOPRIL 20 MG TABLET PO SCH (09:53)
[2023-04-28] MEDS: LABETALOL HCL 200 MG TABLET (FP) PO SCH ×2 (09:53→22:41)
[2023-04-28] MEDS: ATORVASTATIN CA 40 MG TABLET (FP) PO SCH (09:53)
[2023-04-28] MEDS: HEPARIN NA (PORCINE) 5,000 UNITS/ML 1ML VIAL SQ SCH ×2 (09:53→22:42)
[2023-04-28] MEDS: ASPIRIN COATED 81 MG TABLET.EC PO SCH (09:53)
[2023-04-28] MEDS ORDERED: LIDOCAINE PATCH REMOVAL MC SCH (22:00)
[2023-04-29 08:50] LABS: HEMATOCRIT 30.1 % (35.4-49); HEMOGLOBIN 9.1 GM/dL (11.7-16.9); MCH 21.5 pg (25.7-33.7); MCHC 30.2 g/dl (32.0-35.9); MEAN CELL VOLUME 71.1 fl (80-96); MEAN PLT VOLUME 8.4 fl (7.5-11.1); PLATELET COUNT 217 10^3/uL (134-434); RBC 4.23 M/mm3 (4.00-5.60); RDW 23.6 % (11.9-15.9); WHITE BLOOD COUNT 7.1 K/mm3 (4.0-10.0)
[2023-04-29 09:24] LABS: POTASSIUM 4.5 mmol/L (3.5-5.1)
[2023-04-29] MEDS: HEPARIN NA (PORCINE) 5,000 UNITS/ML 1ML VIAL SQ SCH ×2 (09:37→21:08)
[2023-04-29] MEDS: POTASSIUM CHLORIDE ORAL LIQUID 20 MEQ/15 ML PO SCH (09:38)
[2023-04-29] MEDS: ATORVASTATIN CA 40 MG TABLET (FP) PO SCH (09:39)
[2023-04-29] MEDS: LABETALOL HCL 200 MG TABLET (FP) PO SCH ×2 (09:39→21:08)
[2023-04-29] MEDS: LISINOPRIL 20 MG TABLET PO SCH (09:39)
[2023-04-29] MEDS: ASPIRIN COATED 81 MG TABLET.EC PO SCH (09:39)
[2023-04-29] MEDS: FUROSEMIDE 40 MG/4 ML INJECTABLE VIAL IVPUSH SCH (09:40)
[2023-04-29 10:07] LABS: ALBUMIN 3.2 g/dl (3.4-5.0); BLOOD UREA NITROGEN 13.4 mg/dL (7-18)
[2023-04-29 10:10] LABS: CREATININE 0.9 mg/dL (0.55-1.3); PHOSPHOROUS 2.6 mg/dL (2.5-4.9)
[2023-04-29 10:12] LABS: BILIRUBIN,TOTAL 1.5 mg/dL (0.2-1); TOT PROT 6.5 g/dl (6.4-8.2)
[2023-04-29 13:04] LABS: BASO % 0.8 % (0-2.0); EOS % 3.8 % (0-4.5); HEMATOCRIT 52.4 % (35.4-49); HEMOGLOBIN 17.3 GM/dL (11.7-16.9); LYMPH % 22.9 % (8-40); MCH 28.9 pg (25.7-33.7); MEAN CELL VOLUME 87.4 fl (80-96); MONO % 11.4 % (3.8-10.2); NEUT % 61.1 % (42.8-82.8); PLATELET COUNT 242 10^3/uL (134-434); RDW 15.1 % (11.9-15.9); WHITE BLOOD COUNT 2.7 K/mm3 (4.0-10.0)
[2023-04-29] MEDS: FUROSEMIDE 40 MG TABLET (FP) PO SCH (14:39)
[2023-04-29] MEDS: hydrALAZINE HCL 25 MG TABLET (FP) PO SCH ×2 (14:40→21:08)
[2023-04-30] MEDS: FUROSEMIDE 40 MG TABLET (FP) PO SCH ×2 (05:54→12:59)
[2023-04-30] MEDS: hydrALAZINE HCL 25 MG TABLET (FP) PO SCH (05:54)
[2023-04-30 09:19] LABS: HEMATOCRIT 51.3 % (35.4-49); HEMOGLOBIN 16.7 GM/dL (11.7-16.9); MCH 28.4 pg (25.7-33.7); MCHC 32.6 g/dl (32.0-35.9); MEAN CELL VOLUME 87.3 fl (80-96); MEAN PLT VOLUME 8.1 fl (7.5-11.1); PLATELET COUNT 235 10^3/uL (134-434); RBC 5.87 M/mm3 (4.00-5.60); WHITE BLOOD COUNT 2.7 K/mm3 (4.0-10.0)
[2023-04-30] MEDS: ATORVASTATIN CA 40 MG TABLET (FP) PO SCH (09:35)
[2023-04-30] MEDS: LISINOPRIL 20 MG TABLET PO SCH (09:35)
[2023-04-30] MEDS: ASPIRIN COATED 81 MG TABLET.EC PO SCH (09:35)
[2023-04-30] MEDS: HEPARIN NA (PORCINE) 5,000 UNITS/ML 1ML VIAL SQ SCH (09:35)
[2023-04-30] MEDS: LABETALOL HCL 200 MG TABLET (FP) PO SCH (09:35)
[2023-04-30 09:37] LABS: POTASSIUM 4.1 mmol/L (3.5-5.1)
[2023-04-30 09:49] LABS: PHOSPHOROUS 2.4 mg/dL (2.5-4.9)
[2023-04-30 09:50] LABS: CALCIUM 8.5 mg/dL (8.5-10.1)
[2023-04-30 09:51] LABS: ALBUMIN 3.2 g/dl (3.4-5.0); BILIRUBIN,TOTAL 1.8 mg/dL (0.2-1); BLOOD UREA NITROGEN 14.4 mg/dL (7-18); MAGNESIUM 1.8 mg/dL (1.8-2.4); TOT PROT 6.3 g/dl (6.4-8.2)
[2023-04-30] MEDS ORDERED: hydrALAZINE HCL 50 MG TABLET (FP) PO SCH (11:37)
[2023-04-30] MEDS ORDERED: NAPH,MB-DB/K PH,MBDB POWDER PACKET PO ONE (12:09)
[2023-04-30 15:28] VITALS: BP 144/83; PULSE 66; RESP 19; TEMP 98.8
== END 2023-04-30 16:05 | disposition home or self-care (01) | DRG 115 ==
LOC: JER 21:56 → JERBED 04-25 02:00 → OBSVTOIN 04-25 08:53 → J4W 04-25 15:14
PROVIDERS: ADMIT Internal Medicine; ATTEND Internal Medicine
DX: G47.33 Obstructive sleep apnea (adult) (pediatric) (principal); J96.22 Acute and chronic respiratory failure with hypercapnia; J96.21 Acute and chronic respiratory failure with hypoxia; Z68.41 Body mass index [BMI] 40.0-44.9, adult; I11.0 Hypertensive heart disease with heart failure; I50.32 Chronic diastolic (congestive) heart failure; E66.01 Morbid (severe) obesity due to excess calories; I24.8 Other forms of acute ischemic heart disease; E78.5 Hyperlipidemia, unspecified; I25.10 Atherosclerotic heart disease of native coronary artery without angina pectoris; I25.2 Old myocardial infarction; E87.6 Hypokalemia; I45.10 Unspecified right bundle-branch block; M25.511 Pain in right shoulder; F17.210 Nicotine dependence, cigarettes, uncomplicated
CPT/HCPCS: 36415; 36600; 71045-TC-FY; 80053; 80061; 80307; 82803; 83036; 83735; 83880; 84100; 84439; 84443; 84481; 84484; 85025; 85027; 85610; 85730; 93005; 93010; 93306-TC; 93970-TC; 94660; 94761; 99285-25; G0378; J1644

== ENCOUNTER 2023-07-17 12:05 | Inpatient (IN) | payer OTHER ==
[2023-07-17 13:28] LABS: BASO % 0.5 % (0-2.0); EOS % 2.4 % (0-4.5); HEMATOCRIT 47.8 % (35.4-49); HEMOGLOBIN 15.2 GM/dL (11.7-16.9); LYMPH % 16.3 % (8-40); MCH 29.1 pg (25.7-33.7); MCHC 31.8 g/dl (32.0-35.9); MEAN CELL VOLUME 91.5 fl (80-96); MEAN PLT VOLUME 8.1 fl (7.5-11.1); MONO % 12.1 % (3.8-10.2); NEUT % 68.7 % (42.8-82.8); PLATELET COUNT 284 10^3/uL (134-434); RBC 5.23 M/mm3 (4.00-5.60); RDW 15.8 % (11.9-15.9); WHITE BLOOD COUNT 4.7 K/mm3 (4.0-10.0)
[2023-07-17 13:29] LABS: INR 1.26 (0.83-1.09); PROTHROMBIN TIME (PATIENT) 14.6 SEC (9.7-13.0)
[2023-07-17 13:31] LABS: ACTIVATED PTT 30.9 SECONDS (25.2-36.5)
[2023-07-17 13:32] LABS: POTASSIUM 4.2 mmol/L (3.5-5.1)
[2023-07-17 13:34] LABS: CALCIUM 7.9 mg/dL (8.5-10.1)
[2023-07-17 13:35] LABS: ALBUMIN 2.7 g/dl (3.4-5.0); BLOOD UREA NITROGEN 21.6 mg/dL (7-18); MAGNESIUM 1.8 mg/dL (1.8-2.4)
[2023-07-17 13:38] LABS: CREATININE 1.2 mg/dL (0.55-1.3)
[2023-07-17 13:39] LABS: BILIRUBIN,TOTAL 2.1 mg/dL (0.2-1)
[2023-07-17 13:40] LABS: TOT PROT 5.5 g/dl (6.4-8.2)
[2023-07-17 13:42] LABS: N-TERMINAL BNP 730.4 pg/ml (5-125)
[2023-07-17] MEDS ORDERED: FUROSEMIDE 40 MG/4 ML INJECTABLE VIAL IVPUSH ONE (13:58)
[2023-07-17] MEDS ORDERED: FUROSEMIDE 40 MG/4 ML INJECTABLE VIAL ONE ×2 (14:28→15:27)
[2023-07-17] MEDS: FUROSEMIDE 40 MG/4 ML INJECTABLE VIAL IVPUSH SCH (15:30)
[2023-07-17] MEDS ORDERED: hydrALAZINE HCL 50 MG TABLET (FP) ONE (15:31)
[2023-07-17] MEDS: hydrALAZINE HCL 25 MG TABLET (FP) PO SCH ×2 (15:33→21:55)
[2023-07-17 16:21] LABS: BILIRUBIN,DIRECT 0.3 mg/dL (0.0-0.2)
[2023-07-17] MEDS ORDERED: LABETALOL HCL 200 MG TABLET (FP) PO ONE (16:28)
[2023-07-17] MEDS ORDERED: LABETALOL HCL 200 MG TABLET (FP) ONE (16:32)
[2023-07-17 19:02] LABS: POTASSIUM 3.6 mmol/L (3.5-5.1)
[2023-07-17 19:03] LABS: CALCIUM 8.8 mg/dL (8.5-10.1)
[2023-07-17 19:04] LABS: BLOOD UREA NITROGEN 20.2 mg/dL (7-18)
[2023-07-17 19:07] LABS: CREATININE 1.2 mg/dL (0.55-1.3)
[2023-07-17 19:14] LABS: MAGNESIUM 1.7 mg/dL (1.8-2.4)
[2023-07-17] MEDS ORDERED: MAGNESIUM SULF 50% (8.12 MEQ/2 ML-1 GM VIAL) IVPB ONE (20:23)
[2023-07-17] MEDS: ENOXAPARIN NA (PORCINE) 40 MG/0.4 ML DISP.SYRIN SQ SCH (21:58)
[2023-07-18] MEDS ORDERED: ACETAMINOPHEN 1000 MG/100 ML BAG IVPB ONE (00:34)
[2023-07-18] MEDS: hydrALAZINE HCL 25 MG TABLET (FP) PO SCH ×3 (06:27→21:42)
[2023-07-18] MEDS: FUROSEMIDE 40 MG/4 ML INJECTABLE VIAL IVPUSH SCH ×2 (06:27→14:18)
[2023-07-18 07:03] LABS: EOS % 3.2 % (0-4.5); HEMATOCRIT 49.3 % (35.4-49); HEMOGLOBIN 15.8 GM/dL (11.7-16.9); LYMPH % 18.7 % (8-40); MCH 29.5 pg (25.7-33.7); MCHC 31.9 g/dl (32.0-35.9); MEAN CELL VOLUME 92.5 fl (80-96); MEAN PLT VOLUME 8.2 fl (7.5-11.1); MONO % 10.9 % (3.8-10.2); NEUT % 66.2 % (42.8-82.8); PLATELET COUNT 311 10^3/uL (134-434); RBC 5.33 M/mm3 (4.00-5.60); RDW 16.3 % (11.9-15.9); WHITE BLOOD COUNT 4.1 K/mm3 (4.0-10.0)
[2023-07-18 07:16] LABS: POTASSIUM 3.7 mmol/L (3.5-5.1)
[2023-07-18 07:20] LABS: CALCIUM 8.3 mg/dL (8.5-10.1)
[2023-07-18 07:21] LABS: BLOOD UREA NITROGEN 16.6 mg/dL (7-18); MAGNESIUM 2.1 mg/dL (1.8-2.4)
[2023-07-18 07:24] LABS: CREATININE 1.1 mg/dL (0.55-1.3); PHOSPHOROUS 3.8 mg/dL (2.5-4.9)
[2023-07-18 07:25] LABS: BILIRUBIN,TOTAL 2.2 mg/dL (0.2-1); TOT PROT 5.6 g/dl (6.4-8.2)
[2023-07-18] MEDS: ENOXAPARIN NA (PORCINE) 40 MG/0.4 ML DISP.SYRIN SQ SCH ×2 (10:11→21:42)
[2023-07-18] MEDS: ATORVASTATIN CA 40 MG TABLET (FP) PO SCH (10:11)
[2023-07-18] MEDS: ASPIRIN COATED 81 MG TABLET.EC PO SCH (10:11)
[2023-07-18] MEDS ORDERED: LABETALOL HCL 200 MG TABLET (FP) PO SCH ×2 (15:00→22:00)
[2023-07-18] MEDS: ACETAMINOPHEN 325 MG TABLET (FP) PO PRN (15:45)
[2023-07-19] MEDS: ACETAMINOPHEN 325 MG TABLET (FP) PO PRN ×3 (05:37→21:14)
[2023-07-19] MEDS: hydrALAZINE HCL 25 MG TABLET (FP) PO SCH ×3 (05:38→21:14)
[2023-07-19 07:31] LABS: BASO % 0.9 % (0-2.0); EOS % 2.3 % (0-4.5); HEMATOCRIT 46.8 % (35.4-49); HEMOGLOBIN 15.2 GM/dL (11.7-16.9); LYMPH % 13.2 % (8-40); MCH 29.7 pg (25.7-33.7); MCHC 32.5 g/dl (32.0-35.9); MEAN CELL VOLUME 91.3 fl (80-96); MONO % 10.4 % (3.8-10.2); NEUT % 73.2 % (42.8-82.8); PLATELET COUNT 277 10^3/uL (134-434); RBC 5.13 M/mm3 (4.00-5.60); RDW 15.6 % (11.9-15.9); WHITE BLOOD COUNT 4.3 K/mm3 (4.0-10.0)
[2023-07-19 07:46] LABS: POTASSIUM 3.9 mmol/L (3.5-5.1)
[2023-07-19 07:49] LABS: ALBUMIN 2.8 g/dl (3.4-5.0); BLOOD UREA NITROGEN 15.9 mg/dL (7-18); MAGNESIUM 1.8 mg/dL (1.8-2.4)
[2023-07-19 07:52] LABS: PHOSPHOROUS 3.6 mg/dL (2.5-4.9)
[2023-07-19 07:53] LABS: BILIRUBIN,TOTAL 1.6 mg/dL (0.2-1); TOT PROT 5.5 g/dl (6.4-8.2)
[2023-07-19] MEDS ORDERED: hydrALAZINE HCL 20 MG/ML VIAL IVPUSH ONE (08:34)
[2023-07-19] MEDS ORDERED: LABETALOL HCL 200 MG TABLET (FP) PO SCH (09:00)
[2023-07-19] MEDS: LISINOPRIL 20 MG TABLET PO SCH ×2 (09:11→10:48)
[2023-07-19] MEDS: LABETALOL HCL 200 MG TABLET (FP) PO SCH ×2 (09:11→21:14)
[2023-07-19] MEDS: ASPIRIN COATED 81 MG TABLET.EC PO SCH (09:11)
[2023-07-19] MEDS: ATORVASTATIN CA 40 MG TABLET (FP) PO SCH (09:11)
[2023-07-19] MEDS: ENOXAPARIN NA (PORCINE) 40 MG/0.4 ML DISP.SYRIN SQ SCH ×2 (10:47→21:14)
[2023-07-19 11:12] LABS: ARTERIAL BLD GAS O2 SATURATION 81.9 % (95-98); ARTERIAL BLOOD GAS BASE EXCESS 9.7 mmol/L (-2-2); ARTERIAL BLOOD GAS PO2 48.2 mmHg (80-100); ARTERIAL BLOOD GAS pH 7.382 (7.350-7.450)
[2023-07-19 11:14] LABS: ALLENS TEST POSITIVE
[2023-07-19] MEDS: FUROSEMIDE 40 MG/4 ML INJECTABLE VIAL IVPUSH SCH ×2 (14:37→20:58)
[2023-07-20 07:25] LABS: HEMATOCRIT 49.4 % (35.4-49); HEMOGLOBIN 16.1 GM/dL (11.7-16.9); MCH 29.8 pg (25.7-33.7); MCHC 32.5 g/dl (32.0-35.9); MEAN CELL VOLUME 91.6 fl (80-96); MEAN PLT VOLUME 8.3 fl (7.5-11.1); PLATELET COUNT 271 10^3/uL (134-434); RBC 5.39 M/mm3 (4.00-5.60); RDW 15.6 % (11.9-15.9); WHITE BLOOD COUNT 3.8 K/mm3 (4.0-10.0)
[2023-07-20 07:34] LABS: POTASSIUM 3.9 mmol/L (3.5-5.1)
[2023-07-20 07:39] LABS: CALCIUM 8.3 mg/dL (8.5-10.1)
[2023-07-20 07:40] LABS: ALBUMIN 2.8 g/dl (3.4-5.0); BLOOD UREA NITROGEN 12.9 mg/dL (7-18)
[2023-07-20 07:43] LABS: CREATININE 1.1 mg/dL (0.55-1.3)
[2023-07-20 07:45] LABS: BILIRUBIN,TOTAL 2.1 mg/dL (0.2-1); TOT PROT 5.5 g/dl (6.4-8.2)
[2023-07-20] MEDS: hydrALAZINE HCL 25 MG TABLET (FP) PO SCH ×3 (10:19→22:15)
[2023-07-20] MEDS: FUROSEMIDE 40 MG/4 ML INJECTABLE VIAL IVPUSH SCH ×2 (10:19→15:00)
[2023-07-20] MEDS: ASPIRIN COATED 81 MG TABLET.EC PO SCH (10:24)
[2023-07-20] MEDS: ACETAMINOPHEN 325 MG TABLET (FP) PO PRN (10:24)
[2023-07-20] MEDS: LISINOPRIL 20 MG TABLET PO SCH (10:24)
[2023-07-20] MEDS: ENOXAPARIN NA (PORCINE) 40 MG/0.4 ML DISP.SYRIN SQ SCH ×2 (10:24→22:15)
[2023-07-20] MEDS: ATORVASTATIN CA 40 MG TABLET (FP) PO SCH (10:24)
[2023-07-20] MEDS: LABETALOL HCL 200 MG TABLET (FP) PO SCH ×2 (10:24→22:15)
[2023-07-20] MEDS ORDERED: FUROSEMIDE 40 MG/4 ML INJECTABLE VIAL IVPUSH ONE (18:00)
[2023-07-21] MEDS: hydrALAZINE HCL 25 MG TABLET (FP) PO SCH ×2 (06:27→14:16)
[2023-07-21] MEDS: FUROSEMIDE 40 MG/4 ML INJECTABLE VIAL IVPUSH SCH ×2 (06:27→14:16)
[2023-07-21 08:38] LABS: POTASSIUM 3.6 mmol/L (3.5-5.1)
[2023-07-21 08:41] LABS: BASO % 1.4 % (0-2.0); HEMOGLOBIN 16.5 GM/dL (11.7-16.9); LYMPH % 24.1 % (8-40); MCH 29.6 pg (25.7-33.7); MCHC 33.1 g/dl (32.0-35.9); MEAN CELL VOLUME 89.7 fl (80-96); MEAN PLT VOLUME 8.4 fl (7.5-11.1); NEUT % 58.5 % (42.8-82.8); PLATELET COUNT 281 10^3/uL (134-434); RBC 5.57 M/mm3 (4.00-5.60); WHITE BLOOD COUNT 3.5 K/mm3 (4.0-10.0)
[2023-07-21 08:48] LABS: ALBUMIN 3.1 g/dl (3.4-5.0); BLOOD UREA NITROGEN 13.7 mg/dL (7-18)
[2023-07-21 08:50] LABS: CALCIUM 8.5 mg/dL (8.5-10.1); MAGNESIUM 1.7 mg/dL (1.8-2.4)
[2023-07-21 08:51] LABS: CREATININE 1.2 mg/dL (0.55-1.3)
[2023-07-21 08:52] LABS: BILIRUBIN,TOTAL 2.8 mg/dL (0.2-1)
[2023-07-21] MEDS ORDERED: MAGNESIUM 2GM/50ML STERILE WATER IVPB IVPB ONE (09:20)
[2023-07-21] MEDS: LABETALOL HCL 200 MG TABLET (FP) PO SCH (10:00)
[2023-07-21] MEDS: ENOXAPARIN NA (PORCINE) 40 MG/0.4 ML DISP.SYRIN SQ SCH (10:00)
[2023-07-21] MEDS: ASPIRIN COATED 81 MG TABLET.EC PO SCH (10:01)
[2023-07-21] MEDS: LISINOPRIL 20 MG TABLET PO SCH (10:01)
[2023-07-21] MEDS: ATORVASTATIN CA 40 MG TABLET (FP) PO SCH (10:01)
[2023-07-21 15:01] VITALS: BP 152/95; PULSE 80; RESP 19; TEMP 98.1
== END 2023-07-21 17:05 | disposition home or self-care (01) | DRG 194 ==
LOC: JER 12:05 → JERBED 14:50 → OBSVTOIN 15:18 → J4W 17:25
PROVIDERS: ADMIT Internal Medicine; ATTEND Internal Medicine
DX: I11.0 Hypertensive heart disease with heart failure (principal); I50.33 Acute on chronic diastolic (congestive) heart failure; J96.11 Chronic respiratory failure with hypoxia; I16.0 Hypertensive urgency; E66.01 Morbid (severe) obesity due to excess calories; Z68.41 Body mass index [BMI] 40.0-44.9, adult; E78.00 Pure hypercholesterolemia, unspecified; G47.33 Obstructive sleep apnea (adult) (pediatric); I25.10 Atherosclerotic heart disease of native coronary artery without angina pectoris; I25.2 Old myocardial infarction; I42.8 Other cardiomyopathies; E78.5 Hyperlipidemia, unspecified; I44.4 Left anterior fascicular block
CPT/HCPCS: 0241U-QW; 36415; 36600; 71045-TC-FY; 80048; 80053; 82248; 82803; 82962; 83036; 83690; 83735; 83880; 84100; 84484; 85025; 85027; 85610; 85730; 93005; 93010; 94660; 99285-25; G0378

== ENCOUNTER 2023-12-29 09:18 | Emergency (ER) | payer OTHER ==
[2023-12-29 09:33] VITALS: TEMP 98.1; BMI 39.9
[2023-12-29] MEDS ORDERED: KETOROLAC TROMETHAMINE 30 MG/1 ML VIAL ONE (10:22)
[2023-12-29] MEDS: KETOROLAC TROMETHAMINE 30 MG/1 ML VIAL IM ONE (10:34)
[2023-12-29 11:10] VITALS: BP 181/110; PULSE 74; RESP 20
== END 2023-12-29 11:17 | disposition home or self-care (01) ==
LOC: JER 09:18
PROC: 3E0233Z Introduction of Anti-inflammatory into Muscle, Percutaneous Approach (ICD-10-PCS; principal; 2023-12-29)
DX: M79.602 Pain in left arm (principal); V03.10XA Pedestrian on foot injured in collision with car, pick-up truck or van in traffic accident, initial encounter; Y92.410 Unspecified street and highway as the place of occurrence of the external cause
CPT/HCPCS: 73070-TC-LT-FY; 73090-TC-LT-FY; 73130-TC-LT-FY; 99284-25

== ENCOUNTER 2024-09-22 08:45 | Emergency (ER) | payer OTHER ==
[2024-09-22 09:02] VITALS: BP 178/116; PULSE 81; RESP 18; TEMP 98.2; BMI 41.1
[2024-09-22] MEDS ORDERED: ACETAMINOPHEN INJECTION 100 ML ONE (09:43)
[2024-09-22] MEDS: ACETAMINOPHEN 1000 MG/100 ML BAG IVPB ONE (10:08)
[2024-09-22 10:12] LABS: BASO % 0.5 % (0-2.0); EOS % 0.8 % (0-4.5); HEMATOCRIT 45.4 % (35.4-49); HEMOGLOBIN 15.6 GM/dL (11.7-16.9); LYMPH % 8.4 % (8-40); MCHC 34.3 g/dl (32.0-35.9); MEAN CELL VOLUME 90.3 fl (80-96); MEAN PLT VOLUME 8.1 fl (7.5-11.1); MONO % 6.9 % (3.8-10.2); NEUT % 83.4 % (42.8-82.8); PLATELET COUNT 237 10^3/uL (134-434); RBC 5.03 M/mm3 (4.00-5.60); RDW 12.8 % (11.9-15.9); WHITE BLOOD COUNT 9.2 K/mm3 (4.0-10.0)
[2024-09-22 10:21] LABS: INR 1.05 (0.83-1.09); PROTHROMBIN TIME (PATIENT) 12.1 SEC (9.7-13.0)
[2024-09-22 11:07] LABS: POTASSIUM 3.5 mmol/L (3.5-5.1)
[2024-09-22 11:09] LABS: ALBUMIN 3.2 g/dl (3.4-5.0); BLOOD UREA NITROGEN 16.7 mg/dL (7-18); CALCIUM 8.9 mg/dL (8.5-10.1)
[2024-09-22 11:12] LABS: CREATININE 1.2 mg/dL (0.55-1.3)
[2024-09-22 11:14] LABS: BILIRUBIN,TOTAL 1.4 mg/dL (0.2-1); TOT PROT 6.5 g/dl (6.4-8.2)
[2024-09-22] MEDS ORDERED: CEPHALEXIN MONOHYDRATE 500 MG CAPSULE (UD) ONE (11:31)
[2024-09-22] MEDS: CEPHALEXIN MONOHYDRATE 500 MG CAPSULE (UD) PO ONE (11:47)
== END 2024-09-22 11:50 | disposition home or self-care (01) ==
LOC: JER 08:45
PROC: 3E033NZ Introduction of Analgesics, Hypnotics, Sedatives into Peripheral Vein, Percutaneous Approach (ICD-10-PCS; principal; 2024-09-22)
DX: L03.116 Cellulitis of left lower limb (principal); M79.89 Other specified soft tissue disorders
CPT/HCPCS: 36415; 80053; 85025; 85610; 85730; 86803; 93005; 93010; 93970-TC; 99285-25; J0131

== ENCOUNTER 2024-09-23 16:58 | Inpatient (IN) | payer OTHER ==
[2024-09-23 17:37] VITALS: BMI 39.9
[2024-09-23 19:35] LABS: BASO % 0.4 % (0-2.0); EOS % 0.5 % (0-4.5); HEMATOCRIT 42.9 % (35.4-49); HEMOGLOBIN 14.3 GM/dL (11.7-16.9); LYMPH % 10.2 % (8-40); MCH 30.2 pg (25.7-33.7); MCHC 33.3 g/dl (32.0-35.9); MEAN CELL VOLUME 90.7 fl (80-96); MEAN PLT VOLUME 8.2 fl (7.5-11.1); MONO % 10.7 % (3.8-10.2); NEUT % 78.2 % (42.8-82.8); PLATELET COUNT 263 10^3/uL (134-434); RBC 4.73 M/mm3 (4.00-5.60); RDW 13.1 % (11.9-15.9); WHITE BLOOD COUNT 10.1 K/mm3 (4.0-10.0)
[2024-09-23] MEDS: SODIUM CHLORIDE 0.9% 500 ML INFUS.BAG IV ONE (19:48)
[2024-09-23 19:55] LABS: POTASSIUM 3.4 mmol/L (3.5-5.1)
[2024-09-23 19:57] LABS: CALCIUM 8.6 mg/dL (8.5-10.1)
[2024-09-23 19:58] LABS: BLOOD UREA NITROGEN 18.7 mg/dL (7-18); MAGNESIUM 1.7 mg/dL (1.8-2.4)
[2024-09-23 20:01] LABS: CREATININE 1.5 mg/dL (0.55-1.3)
[2024-09-23 20:02] LABS: BILIRUBIN,TOTAL 2.5 mg/dL (0.2-1); TOT PROT 6.3 g/dl (6.4-8.2)
[2024-09-23] MEDS ORDERED: VANCOMYCIN HCL 1,500 MG in DEXTROSE 5%-WATER - 500 ML IVPB ONE (20:13)
[2024-09-23] MEDS ORDERED: ACETAMINOPHEN INJECTION 100 ML ONE (21:00)
[2024-09-23] MEDS: ACETAMINOPHEN 1000 MG/100 ML BAG IVPB ONE (21:08)
[2024-09-23] MEDS: VANCOMYCIN PREMIX 1.5 GM 1,500 MG/300 ML BAG IVPB ONE (21:42)
[2024-09-23] MEDS ORDERED: POTASSIUM CHLORIDE TABS 20 MEQ TABLET.ER (FP) PO ONE (22:48)
[2024-09-23] MEDS: POTASSIUM CHLORIDE ORAL LIQUID 20 MEQ/15 ML PO ONE (22:52)
[2024-09-23] MEDS ORDERED: MAGNESIUM SULFATE IN WATER 2 GM/50 ML IVPB IVPB ONE (23:26)
[2024-09-23 23:41] LABS: BILIRUBIN,DIRECT 0.5 mg/dL (0.0-0.2)
[2024-09-23 23:43] LABS: URINE APPEARANCE CLEAR; URINE BILIRUBIN NEGATIVE (NEGATIVE); URINE COLOR YELLOW; URINE GLUCOSE (UA) NEGATIVE (NEGATIVE); URINE KETONE NEGATIVE (NEGATIVE); URINE LEUK ESTERASE NEGATIVE (NEGATIVE); URINE NITRITE NEGATIVE (NEGATIVE); URINE PROTEIN TRACE (NEGATIVE); URINE UROBILINOGEN 0.2 mg/dL (0.2-1.0)
[2024-09-23] MEDS: MAGNESIUM SULFATE IN WATER 2 GM/50 ML IVPB IVPB ONE (23:43)
[2024-09-24] MEDS: CEFAZOLIN SODIUM 2 GM in DEXTROSE 5%-WATER 100 ML IVPB SCH (02:59)
[2024-09-24] MEDS ORDERED: hydrALAZINE HCL 25 MG TABLET (FP) PO SCH (06:00)
[2024-09-24] MEDS: KCL 10 MEQ IVPB 10 MEQ/100 ML INFUS.BAG IVPB SCH (06:00)
[2024-09-24 06:59] VITALS: RESP 18
[2024-09-24] MEDS: hydrALAZINE HCL 50 MG TABLET (FP) PO SCH (08:31)
[2024-09-24 09:28] LABS: HEMATOCRIT 42.6 % (35.4-49); MCH 30.3 pg (25.7-33.7); MCHC 32.8 g/dl (32.0-35.9); MEAN CELL VOLUME 92.3 fl (80-96); MEAN PLT VOLUME 8.3 fl (7.5-11.1); PLATELET COUNT 259 10^3/uL (134-434); RBC 4.62 M/mm3 (4.00-5.60); RDW 12.6 % (11.9-15.9); WHITE BLOOD COUNT 8.6 K/mm3 (4.0-10.0)
[2024-09-24 09:35] LABS: POTASSIUM 3.4 mmol/L (3.5-5.1)
[2024-09-24 09:37] LABS: ALBUMIN 2.9 g/dl (3.4-5.0); BLOOD UREA NITROGEN 14.1 mg/dL (7-18); CALCIUM 8.5 mg/dL (8.5-10.1); MAGNESIUM 2.1 mg/dL (1.8-2.4)
[2024-09-24 09:40] LABS: CREATININE 1.2 mg/dL (0.55-1.3); PHOSPHOROUS 2.7 mg/dL (2.5-4.9)
[2024-09-24 09:43] LABS: BILIRUBIN,TOTAL 1.9 mg/dL (0.2-1); TOT PROT 6.2 g/dl (6.4-8.2)
[2024-09-24] MEDS ORDERED: PATIENT'S OWN MEDICATION (NON-FORMULARY) (Lisinopril [Lisinopril] 40 MG Tablet) PO SCH (10:00)
[2024-09-24] MEDS ORDERED: LABETALOL HCL 200 MG TABLET (FP) PO SCH (10:00)
[2024-09-24 10:16] LABS: N-TERMINAL BNP 159.9 pg/ml (5-125)
[2024-09-24] MEDS: CLOTRIMAZOLE 1% CREAM TP SCH (10:30)
[2024-09-24] MEDS: LABETALOL HCL 200 MG TABLET (FP) PO SCH (10:30)
[2024-09-24] MEDS: ENOXAPARIN NA (PORCINE) 40 MG/0.4 ML DISP.SYRIN SQ SCH (10:30)
[2024-09-24] MEDS: ASPIRIN COATED 81 MG TABLET.EC PO SCH (10:31)
[2024-09-24 11:20] LABS: EPI CELLS 4 /uL (0-25.1); HYALINE CASTS 1 /uL (0-3.1); URINE APPEARANCE CLEAR; URINE BACTERIA 2 /uL (0-1359); URINE BILIRUBIN NEGATIVE (NEGATIVE); URINE COLOR YELLOW; URINE GLUCOSE (UA) NEGATIVE (NEGATIVE); URINE KETONE TRACE (NEGATIVE); URINE LEUK ESTERASE NEGATIVE (NEGATIVE); URINE NITRITE NEGATIVE (NEGATIVE); URINE PROTEIN 2+ (NEGATIVE); URINE RBC 6 /uL (0-23.9); URINE UROBILINOGEN 0.2 mg/dL (0.2-1.0); URINE WBC 7 /uL (0-25.8)
[2024-09-24] MEDS: POTASSIUM CHLORIDE ORAL LIQUID 20 MEQ/15 ML PO ONE (15:55)
[2024-09-24] MEDS: ATORVASTATIN CA 80 MG TABLET (FP) PO SCH (22:11)
[2024-09-24] MEDS: ACETAMINOPHEN 1000 MG/100 ML BAG IVPB PRN (22:12)
[2024-09-25 10:47] LABS: HEMATOCRIT 42.6 % (35.4-49); HEMOGLOBIN 14.4 GM/dL (11.7-16.9); MCH 30.8 pg (25.7-33.7); MCHC 33.9 g/dl (32.0-35.9); MEAN CELL VOLUME 90.9 fl (80-96); MEAN PLT VOLUME 7.8 fl (7.5-11.1); PLATELET COUNT 272 10^3/uL (134-434); RBC 4.68 M/mm3 (4.00-5.60); RDW 12.8 % (11.9-15.9); WHITE BLOOD COUNT 6.9 K/mm3 (4.0-10.0)
[2024-09-25 11:07] LABS: POTASSIUM 3.8 mmol/L (3.5-5.1)
[2024-09-25 11:16] LABS: BLOOD UREA NITROGEN 12.7 mg/dL (7-18)
[2024-09-25] MEDS: ONDANSETRON 4 MG/2 ML VIAL IVPUSH ONE (11:26)
[2024-09-25] MEDS: ACETAMINOPHEN 325 MG TABLET (FP) PO PRN (15:42)
[2024-09-25] MEDS: LABETALOL HCL 200 MG TABLET (FP) PO SCH (21:20)
[2024-09-26 10:37] LABS: HEMOGLOBIN 13.3 GM/dL (11.7-16.9); MCH 30.1 pg (25.7-33.7); MCHC 32.5 g/dl (32.0-35.9); MEAN CELL VOLUME 92.8 fl (80-96); MEAN PLT VOLUME 8.5 fl (7.5-11.1); PLATELET COUNT 267 10^3/uL (134-434); RBC 4.41 M/mm3 (4.00-5.60); RDW 12.7 % (11.9-15.9); WHITE BLOOD COUNT 5.4 K/mm3 (4.0-10.0)
[2024-09-26 10:55] LABS: POTASSIUM 3.9 mmol/L (3.5-5.1)
[2024-09-26 10:56] LABS: CALCIUM 8.7 mg/dL (8.5-10.1)
[2024-09-26 10:58] LABS: BLOOD UREA NITROGEN 13.8 mg/dL (7-18)
[2024-09-26] MEDS: LISINOPRIL 20 MG TABLET PO SCH (14:01)
[2024-09-26] MEDS: FUROSEMIDE 40 MG TABLET (FP) PO SCH (14:01)
[2024-09-26] MEDS: LABETALOL HCL 200 MG TABLET (FP) PO ONE (21:26)
[2024-09-26] MEDS: DOXYCYCLINE HYCLATE 100 MG CAPSULE PO SCH (23:04)
[2024-09-27 04:24] VITALS: PULSE 72
[2024-09-27 08:58] LABS: HEMATOCRIT 41.3 % (35.4-49); HEMOGLOBIN 14.3 GM/dL (11.7-16.9); MCH 31.3 pg (25.7-33.7); MCHC 34.6 g/dl (32.0-35.9); MEAN CELL VOLUME 90.4 fl (80-96); MEAN PLT VOLUME 7.9 fl (7.5-11.1); PLATELET COUNT 328 10^3/uL (134-434); RBC 4.57 M/mm3 (4.00-5.60); RDW 12.5 % (11.9-15.9); WHITE BLOOD COUNT 5.8 K/mm3 (4.0-10.0)
[2024-09-27 09:24] LABS: BLOOD UREA NITROGEN 13.4 mg/dL (7-18)
[2024-09-27] MEDS: LABETALOL HCL 200 MG TABLET (FP) PO SCH (10:18)
[2024-09-27 13:13] VITALS: BP 142/100; TEMP 98.6
== END 2024-09-27 19:01 | disposition home or self-care (01) | DRG 383 ==
LOC: JER 16:58 → JERBED 22:45 → OBSVTOIN 09-24 01:13 → J6S 09-24 01:22
PROVIDERS: ADMIT Internal Medicine; ATTEND Internal Medicine
PROC: 0Y9J0ZZ Drainage of Left Lower Leg, Open Approach (ICD-10-PCS; principal; 2024-09-23)
DX: L03.116 Cellulitis of left lower limb (principal); N17.9 Acute kidney failure, unspecified; E78.5 Hyperlipidemia, unspecified; I11.0 Hypertensive heart disease with heart failure; I50.32 Chronic diastolic (congestive) heart failure; E83.42 Hypomagnesemia; E87.6 Hypokalemia; I25.10 Atherosclerotic heart disease of native coronary artery without angina pectoris; I45.10 Unspecified right bundle-branch block; G47.33 Obstructive sleep apnea (adult) (pediatric); L02.416 Cutaneous abscess of left lower limb; E66.9 Obesity, unspecified; Z68.39 Body mass index [BMI] 39.0-39.9, adult; B35.3 Tinea pedis; J45.909 Unspecified asthma, uncomplicated; B35.1 Tinea unguium
CPT/HCPCS: 36415; 73590-TC-LT-FY; 76775-TC; 80048; 80053; 81003; 82248; 82550; 82553; 83735; 83880; 84100; 85025; 85027; 87040; 87070; 87077; 87081; 87186; 87205; 93005; 93010; 93306-TC; 99285-25; G0378; J0131

== ENCOUNTER 2025-02-04 22:55 | Emergency (ER) | payer OTHER ==
[2025-02-04 23:04] VITALS: BP 154/93; PULSE 81; RESP 18; TEMP 98.7; BMI 38.2
[2025-02-05] MEDS ORDERED: SULFAMETHOXAZOLE/TRIMETHOPRIM 800MG/160MG D.S. TABLET PO ONE (04:09)
[2025-02-05] MEDS ORDERED: CEPHALEXIN MONOHYDRATE 500 MG CAPSULE (UD) PO ONE (04:10)
== END 2025-02-05 04:24 | disposition home or self-care (01) ==
LOC: JER 22:55
DX: L02.211 Cutaneous abscess of abdominal wall (principal)
CPT/HCPCS: 99283-25